=== PATIENT | female | born 1935 | race Caucasian/White ===

== ENCOUNTER 2016-11-16 11:53 | Inpatient (IN) | payer MEDICARE, BC ==
[2016-11-20 04:39] VITALS: RESP 20
[2016-11-22 07:32] VITALS: PULSE 94; TEMP 98; O2SAT 96
[2016-11-22 10:59] VITALS: BP 151/74
== END 2016-11-22 14:30 | DRG 378 ==
LOC: C.ER 11:53 → C.9E 12:59 → C.6T 14:05
PROVIDERS: ADMIT Internal Medicine; ATTEND Internal Medicine
PROC: 0DBN8ZX Excision of Sigmoid Colon, Via Natural or Artificial Opening Endoscopic, Diagnostic (ICD-10-PCS; principal; 2016-11-18)
DX: K92.2 Gastrointestinal hemorrhage, unspecified (principal); N39.0 Urinary tract infection, site not specified; K57.90 Diverticulosis of intestine, part unspecified, without perforation or abscess without bleeding; F03.90 Unspecified dementia, unspecified severity, without behavioral disturbance, psychotic disturbance, mood disturbance, and anxiety; F05 Delirium due to known physiological condition; I48.91 Unspecified atrial fibrillation; F32.9 Major depressive disorder, single episode, unspecified; I10 Essential (primary) hypertension; E78.5 Hyperlipidemia, unspecified; E78.00 Pure hypercholesterolemia, unspecified; M81.0 Age-related osteoporosis without current pathological fracture; Z79.01 Long term (current) use of anticoagulants; Z96.651 Presence of right artificial knee joint; Z85.3 Personal history of malignant neoplasm of breast; Z87.891 Personal history of nicotine dependence; K59.00 Constipation, unspecified; M19.90 Unspecified osteoarthritis, unspecified site; N93.9 Abnormal uterine and vaginal bleeding, unspecified; K63.5 Polyp of colon; K64.8 Other hemorrhoids; K52.9 Noninfective gastroenteritis and colitis, unspecified; Z91.81 History of falling; D64.9 Anemia, unspecified

== ENCOUNTER 2017-01-03 22:56 | Observation (INO) | payer MEDICARE ==
[2017-01-03 23:38] LABS: BASO # 0.1 K/uL (0.0-0.2); BASO % 0.8 % (0.0-2.0); EOS # 0.4 K/uL (0.0-0.7); EOS % 4.7 % (0.0-4.0); HEMATOCRIT 28.9 % (34.0-47.0); LYMPH # 1.8 K/uL (1.0-4.3); LYMPH % 21.6 % (20.0-40.0); MEAN CELL VOLUME 81.4 fL (81.0-99.0); MEAN CORPUSCULAR HEMOGLOBIN 26.3 pg (27.0-31.0); MEAN CORPUSCULAR HGB CONC 32.3 g/dL (33.0-37.0); MEAN PLATELET VOLUME 7.8 fL (7.2-11.7); MONO % 11.9 % (0.0-10.0); RED CELL DISTRIBUTION WIDTH 14.6 % (11.5-14.5); WHITE BLOOD COUNT 8.5 K/uL (4.8-10.8)
[2017-01-03 23:46] LABS: CHLORIDE 103 mmol/L (98-107)
[2017-01-03 23:47] LABS: POTASSIUM 4.6 mmol/L (3.6-5.2); SODIUM 140 mmol/L (132-148)
[2017-01-03 23:49] LABS: ALB/GLOB RATIO 1.2 (1.0-2.1); ALKALINE PHOSPHATASE 70 U/L (38-126); AST/SGOT 26 U/L (14-36); BILIRUBIN,TOTAL 1.1 mg/dL (0.2-1.3); CARBON DIOXIDE 27 mmol/L (22-30); GFR AFRICAN-AMERICAN > 60; TOTAL PROTEIN 6.5 g/dL (6.3-8.3)
[2017-01-03 23:50] LABS: ALT/SGPT 36 U/L (9-52); BLOOD UREA NITROGEN 22 mg/dL (7-17); CALCIUM 8.4 mg/dl (8.6-10.4); GLUCOSE,RANDOM 102 mg/dL (65-105)
--- NOTE | 2017-01-04 00:06 | C.PDOC ---
Time Seen by Provider: 01/03/17 23:16 Chief Complaint (Nursing): Abnormal Labs Past Medical History Vital Signs: Last Vital Signs Temp 98.7 F 01/03/17 23:10 Pulse 100 H 01/03/17 23:10 Resp 20 01/03/17 23:10 BP 138/84 01/03/17 23:10 Pulse Ox 96 01/04/17 00:05 - Medical History PMH: Arthritis, Atrial Fibrillation, Dementia, HTN, Hyperlipidemia Denies: Chronic Kidney Disease - [facility] Procedures EXCISION OF SIGMOID COLON, ENDO, DIAGN (11/16/16) Family History: States: Unknown Family Hx - Social History Hx Alcohol Use: No Hx Substance Use: No ED Course And Treatment - Laboratory Results Result Diagrams: 01/03/17 23:34 01/03/17 23:34 ECG Rhythm: Atrial Fibrillation ECG Interpretation: Normal Rate From EC O2 Sat by Pulse Oximetry: 96 Progress Note: rectal exam, soft light brown stool, OSB sent Reevaluation Time: 00:39 Reassessment Condition: Improved Disposition Doctor Will See Patient In The: Hospital Counseled Patient/Family Regarding: Studies Performed, Diagnosis - Disposition Disposition: HOSPITALIZED Disposition Time: 00:40 Condition: GOOD Forms: [facility] (Slovak) - Clinical Impression Clinical Impression: Anemia
[2017-01-04 03:54] LABS: RBC URINE 3 /hpf (0-3); URINE BILIRUBIN NEGATIVE (NEGATIVE); URINE BLOOD NEGATIVE (NEGATIVE); URINE COLOR Yellow (YELLOW); URINE GLUCOSE (UA) NORMAL (Normal); URINE KETONE NEGATIVE (NEGATIVE); URINE LEUKOCYTE ESTERASE 3+ Leu/uL (Negative); URINE PROTEIN NEGATIVE (NEGATIVE); WBC URINE 39 /hpf (0-5)
--- NOTE | 2017-01-04 09:11 | RAD ---
PROCEDURE: CHEST RADIOGRAPH, 1 VIEW HISTORY: Shortness of breath COMPARISON: None available. FINDINGS: LUNGS: Moderate to severe venous congestion with confluent airspace opacifications in the left mid to lower lung zone with associated small left pleural effusion. Elevated right hemidiaphragm. Right paratracheal airspace opacity. PLEURA: As above. CARDIOVASCULAR: Cardiomegaly. OSSEOUS STRUCTURES: Degenerative changes in the spine and shoulders. VISUALIZED UPPER ABDOMEN: Normal. OTHER FINDINGS: None. IMPRESSION: Moderate to severe venous congestion with confluent airspace opacifications in the left mid to lower lung zone with associated small left pleural effusion. Elevated right hemidiaphragm. Right paratracheal airspace opacity.
--- NOTE | 2017-01-04 09:39 | RAD ---
Chest x-ray two views History: Admission film. Comparison: 01/03/2017 Findings: Patchy increased markings at the left lung base which may represent mild infiltrate and or atelectasis. Right peritracheal airspace opacity which may represent prominent vasculature. Mild venous congestion. Mild right infrahilar consolidative changes. Tortuous ectatic aorta. Mild cardiomegaly. Degenerative changes in the spine and shoulders. Impression: Patchy increased markings at the left lung base which may represent mild infiltrate and or atelectasis. Right peritracheal airspace opacity which may represent prominent vasculature. Mild venous congestion. Mild right infrahilar consolidative changes. Tortuous ectatic aorta. Mild cardiomegaly.
[2017-01-04] MEDS: Sodium Chloride 0.45% 1,000 ML IV SCH (10:07)
--- NOTE | 2017-01-04 12:19 | CP.PCM.CON ---
History of Present Illness - History of Present Illness History of Present Illness: ASked to see pt for anemia and g pos stool Pt reprots feeling weak. Denies fever, RBleed PMH: OA, A fib, OMS, HTn, chol Had colonoscopy 12/02- diverticulolsis and 3 polyps not removed. Was on eliquis Review of Systems - Constitutional Constitutional: Fatigue, Weakness. absent: Fever, Weight Loss - EENT Eyes: absent: Diplopia Nose/Mouth/Throat: absent: Throat Swelling - Cardiovascular Cardiovascular: absent: Chest Pain, Palpitations - Respiratory Respiratory: absent: Hemoptysis, Wheezing - Gastrointestinal Gastrointestinal: absent: Abdominal Pain, Hematemesis, Hematochezia, Melena, Vomiting - Genitourinary Genitourinary: absent: Hematuria - Musculoskeletal Musculoskeletal: absent: Muscle Cramps - Integumentary Integumentary: absent: Jaundice - Neurological Neurological: absent: Convulsions Past Patient History - Past Medical History & Family History Past Medical History?: Yes - Past Social History Smoking Status: Current Some Days Smoker - CARDIAC Hx Atrial Fibrillation: Yes Hx Hypertension: Yes - PULMONARY Hx Respiratory Disorders: No - NEUROLOGICAL Hx Dementia: Yes - HEENT Hx HEENT Problems: Yes - RENAL Hx Chronic Kidney Disease: No - ENDOCRINE/METABOLIC Hx Endocrine Disorders: No - HEMATOLOGICAL/ONCOLOGICAL Hx Blood Disorders: No - INTEGUMENTARY Hx Dermatological Problems: No - MUSCULOSKELETAL/RHEUMATOLOGICAL Hx Arthritis: Yes - GASTROINTESTINAL Hx Gastrointestinal Disorders: Yes Other/Comment: GI blood - GENITOURINARY/GYNECOLOGICAL Hx Genitourinary Disorders: No - PSYCHIATRIC Hx Substance Use: No - SURGICAL HISTORY Hx Surgeries: Yes Hx Joint Replacement: Yes (right knee) - ANESTHESIA Hx Anesthesia: Yes Meds Allergies/Adverse Reactions: Allergies Allergy/AdvReac Type Severity Reaction Status Date / Time No Known Allergies Allergy Verified 11/16/16 12:09 - Medications Medications: Current Medications Ferric Sodium Gluconate Complex (Ferrlecit) 125 mg IVPB DAILY [facility] Stop: 01/06/17 12:16 Sodium Chloride (Sodium Chloride 0.45%) 1,000 mls @ 100 mls/hr IV .Q10H KARO Last Admin: 01/04/17 10:07 Dose: 100 mls/hr Metoprolol Tartrate (Lopressor) 25 mg PO BID [facility] Last Admin: 01/04/17 10:26 Dose: 25 mg Rosuvastatin Calcium (Crestor) 5 mg PO HS KARO Physical Exam - Constitutional Appears: Well - Respiratory Exam Respiratory Exam: Clear to Auscultation Bilateral - Cardiovascular Exam Cardiovascular Exam: RRR - GI/Abdominal Exam GI & Abdominal Exam: Normal Bowel Sounds, Soft. absent: Guarding, Mass, Tenderness - Extremities Exam Extremities exam: Positive for: pedal edema - Neurological Exam Neurological exam: Alert, Oriented x3 - Psychiatric Exam Psychiatric exam: Normal Affect Results - Vital Signs Recent Vital Signs: Last Vital Signs Temp 97.8 F 01/04/17 06:36 Pulse 99 H 01/04/17 06:36 Resp 18 01/04/17 06:36 BP 135/72 01/04/17 10:26 Pulse Ox 99 01/04/17 06:36 - Labs Result Diagrams: 01/03/17 23:34 01/03/17 23:34 Labs: Laboratory Results - last 24 hr 01/03/17 01/03/17 01/03/17 23:34 23:34 23:34 WBC 8.5 D RBC 3.55 L Hgb 9.3 L D Hct 28.9 L MCV 81.4 D MCH 26.3 L MCHC 32.3 L RDW 14.6 H Plt Count 250 MPV 7.8 Neut % (Auto) 61.0 Lymph % (Auto) 21.6 [place] % (Auto) 11.9 H Eos % (Auto) 4.7 H Baso % (Auto) 0.8 Neut # 5.2 Lymph # 1.8 [place] # 1.0 H Eos # 0.4 Baso # 0.1 PT 11.3 INR 1.0 APTT 21 Sodium 140 Potassium 4.6 Chloride 103 Carbon Dioxide 27 Anion Gap 14 BUN 22 H Creatinine 0.8 Est GFR ( Amer) > 60 Est GFR (Non-Af Amer) > 60 Random Glucose 102 Calcium 8.4 L Total Bilirubin 1.1 AST 26 ALT 36 Alkaline Phosphatase 70 Troponin I < 0.0120 NT-Pro-B Natriuret Pep 1310 H Total Protein 6.5 Albumin 3.5 Globulin 2.9 Albumin/Globulin Ratio 1.2 Urine Color Urine Clarity Urine pH Ur Specific [place] Urine Protein Urine Glucose (UA) Urine Ketones Urine Blood Urine Nitrate Urine Bilirubin Urine Urobilinogen Ur Leukocyte Esterase Urine WBC (Auto) Urine RBC (Auto) Ur Squamous Epith Cells Stool Occult Blood Blood Type Antibody Screen 01/03/17 01/04/17 01/04/17 23:34 01:18 02:47 WBC RBC Hgb Hct MCV MCH MCHC RDW Plt Count MPV Neut % (Auto) Lymph % (Auto) [place] % (Auto) Eos % (Auto) Baso % (Auto) Neut # Lymph # [place] # Eos # Baso # PT INR APTT Sodium Potassium Chloride Carbon Dioxide Anion Gap BUN Creatinine Est GFR ( Amer) Est GFR (Non-Af Amer) Random Glucose Calcium Total Bilirubin AST ALT Alkaline Phosphatase Troponin I NT-Pro-B Natriuret Pep Total Protein Albumin Globulin Albumin/Globulin Ratio Urine Color Yellow Urine Clarity Hazy Urine pH 5.0 Ur Specific [place] 1.021 Urine Protein Negative Urine Glucose (UA) Normal Urine Ketones Negative Urine Blood Negative Urine Nitrate Negative Urine Bilirubin Negative Urine Urobilinogen 2.0 H Ur Leukocyte Esterase 3+ H Urine WBC (Auto) 39 H Urine RBC (Auto) 3 Ur Squamous Epith Cells 5 Stool Occult Blood Positive H Blood Type AB POSITIVE Antibody Screen Negative Assessment & Plan (1) Atrial fibrillation Status: Acute (2) HTN (hypertension) Status: Acute (3) Anemia Assessment and Plan: g pos stool. Had colonsocopy 1 month a go Status: Acute (4) Colon polyps Assessment and Plan: No removed- was on eliquis- consider colonosocpy in future for polypectomy Status: Acute (5) Diverticulosis Status: Acute (6) Gastrointestinal hemorrhage Assessment and Plan: EGD tuesday Status: Acute
[2017-01-04] MEDS: Ferric Sodium Gluconat Complex 62.5 mg/5 ml Vial IVPB SCH (15:24)
[2017-01-04 15:39] LABS: INR 1.1
[2017-01-04] MEDS ORDERED: Peg-Electrolyte Oral Soln 4L (Golytely) PO ONE (16:00)
[2017-01-04] MEDS ORDERED: Bisacodyl 5mg EC Tab PO ONE (19:00)
--- NOTE | 2017-01-04 21:46 | CP.PCM.HP ---
History of Present Illness - History of Present Illness History of Present Illness: Chief complaint: Low hemoglobin. History present illness: 81-year-old female with history of hypertension osteoporosis hypercholesteremia atrial fibrillation was on anticoagulation, and dementia. Patient was recently hospitalized with the Gi bleed in the past, underwent colonoscopy. But at the time patient hemodynamically was stable. Patient went to assisted living, I was called last week, at the time patient was having at least frequent episodes of rectal bleeding. I spoke to the patient's daughter at the time. After repeating the blood count in the atrium, because of the low hemoglobin 8.9 , I advised the family that she will needed hospitalization. And patient was brought to the emergency room. According to the patient she is not having any information about the bleeding. She does not see any bleeding. She is feeling better. She does not have any acute symptoms. But patient is having significant advanced dementia, much history is not available from her Past medical history: Hypertension, dementia, atrial fibrillation Allergy: No known drug allergy Personal history used to be a smoker in the past. Currently living in assisted facility Review of system noted from the chart On examination: Vital signs reviewed Chest bilateral good air entry regular heart sound nontender abdomen no pedal edema Stool guaiac is positive Repeat hemoglobin is 9.0 Assessment and recommendation: 80-year-old female with history of hypertension and hypercholesteremia osteoporosis atrial fibrillation currently off anticoagulation because of recurrent fall, and high risk of fall. Also suspected Gi bleed. I spoke to the patient's family. I also spoke to the resume writer, possible colonoscopy in the morning. Repeat hemoglobin in the a.m. We'll start the patient on IV iron infusion. And will follow the patient. Patient is at high risk for DVT. Also at high risk for stroke because of the atrial fibrillation. And unable to anticoagulate Family understand the risk. Present on Admission - Present on Admission Any Indicators Present on Admission: No History of DVT/PE: No History of Uncontrolled Diabetes: No Urinary Catheter: No Decubitus Ulcer Present: No Past Patient History - Past Medical History & Family History Past Medical History?: Yes - Past Social History Smoking Status: Never Smoked - CARDIAC Hx Atrial Fibrillation: Yes Hx Hypertension: Yes - PULMONARY Hx Respiratory Disorders: No - NEUROLOGICAL Hx Dementia: Yes - HEENT Hx HEENT Problems: Yes - RENAL Hx Chronic Kidney Disease: No - ENDOCRINE/METABOLIC Hx Endocrine Disorders: No - HEMATOLOGICAL/ONCOLOGICAL Hx Blood Disorders: No - INTEGUMENTARY Hx Dermatological Problems: No - MUSCULOSKELETAL/RHEUMATOLOGICAL Hx Arthritis: Yes - GASTROINTESTINAL Hx Gastrointestinal Disorders: Yes Other/Comment: GI blood - GENITOURINARY/GYNECOLOGICAL Hx Genitourinary Disorders: No - PSYCHIATRIC Hx Substance Use: No - SURGICAL HISTORY Hx Surgeries: Yes Hx Joint Replacement: Yes (right knee) - ANESTHESIA Hx Anesthesia: Yes Meds Allergies/Adverse Reactions: Allergies Allergy/AdvReac Type Severity Reaction Status Date / Time No Known Allergies Allergy Verified 01/04/17 17:39 Results - Vital Signs Recent Vital Signs: Last Vital Signs Temp 97.8 F 01/04/17 13:00 Pulse 81 01/04/17 21:29 Resp 24 01/04/17 21:29 BP 137/90 01/04/17 21:29 Pulse Ox 94 L 01/04/17 21:29 - Labs Result Diagrams: 01/03/17 23:34 01/03/17 23:34 Labs: Laboratory Results - last 24 hr 01/03/17 01/03/17 01/03/17 23:34 23:34 23:34 WBC 8.5 D RBC 3.55 L Hgb 9.3 L D Hct 28.9 L MCV 81.4 D MCH 26.3 L MCHC 32.3 L RDW 14.6 H Plt Count 250 MPV 7.8 Neut % (Auto) 61.0 Lymph % (Auto) 21.6 [place] % (Auto) 11.9 H Eos % (Auto) 4.7 H Baso % (Auto) 0.8 Neut # 5.2 Lymph # 1.8 [place] # 1.0 H Eos # 0.4 Baso # 0.1 PT 11.3 INR 1.0 APTT 21 Sodium 140 Potassium 4.6 Chloride 103 Carbon Dioxide 27 Anion Gap 14 BUN 22 H Creatinine 0.8 Est GFR ( Amer) > 60 Est GFR (Non-Af Amer) > 60 Random Glucose 102 Calcium 8.4 L Total Bilirubin 1.1 AST 26 ALT 36 Alkaline Phosphatase 70 Troponin I < 0.0120 NT-Pro-B Natriuret Pep 1310 H Total Protein 6.5 Albumin 3.5 Globulin 2.9 Albumin/Globulin Ratio 1.2 Urine Color Urine Clarity Urine pH Ur Specific [place] Urine Protein Urine Glucose (UA) Urine Ketones Urine Blood Urine Nitrate Urine Bilirubin Urine Urobilinogen Ur Leukocyte Esterase Urine WBC (Auto) Urine RBC (Auto) Ur Squamous Epith Cells Stool Occult Blood Blood Type Antibody Screen 01/03/17 01/04/17 01/04/17 23:34 01:18 02:47 WBC RBC Hgb Hct MCV MCH MCHC RDW Plt Count MPV Neut % (Auto) Lymph % (Auto) [place] % (Auto) Eos % (Auto) Baso % (Auto) Neut # Lymph # [place] # Eos # Baso # PT INR APTT Sodium Potassium Chloride Carbon Dioxide Anion Gap BUN Creatinine Est GFR ( Amer) Est GFR (Non-Af Amer) Random Glucose Calcium Total Bilirubin AST ALT Alkaline Phosphatase Troponin I NT-Pro-B Natriuret Pep Total Protein Albumin Globulin Albumin/Globulin Ratio Urine Color Yellow Urine Clarity Hazy Urine pH 5.0 Ur Specific [place] 1.021 Urine Protein Negative Urine Glucose (UA) Normal Urine Ketones Negative Urine Blood Negative Urine Nitrate Negative Urine Bilirubin Negative Urine Urobilinogen 2.0 H Ur Leukocyte Esterase 3+ H Urine WBC (Auto) 39 H Urine RBC (Auto) 3 Ur Squamous Epith Cells 5 Stool Occult Blood Positive H Blood Type AB POSITIVE Antibody Screen Negative 01/04/17 15:29 WBC RBC Hgb Hct MCV MCH MCHC RDW Plt Count MPV Neut % (Auto) Lymph % (Auto) [place] % (Auto) Eos % (Auto) Baso % (Auto) Neut # Lymph # [place] # Eos # Baso # PT 12.8 H INR 1.1 APTT Sodium Potassium Chloride Carbon Dioxide Anion Gap BUN Creatinine Est GFR ( Amer) Est GFR (Non-Af Amer) Random Glucose Calcium Total Bilirubin AST ALT Alkaline Phosphatase Troponin I NT-Pro-B Natriuret Pep Total Protein Albumin Globulin Albumin/Globulin Ratio Urine Color Urine Clarity Urine pH Ur Specific [place] Urine Protein Urine Glucose (UA) Urine Ketones Urine Blood Urine Nitrate Urine Bilirubin Urine Urobilinogen Ur Leukocyte Esterase Urine WBC (Auto) Urine RBC (Auto) Ur Squamous Epith Cells Stool Occult Blood Blood Type Antibody Screen
[2017-01-05] MEDS: Sodium Chloride 0.45% 1,000 ML IV SCH ×2 (00:11→06:59)
[2017-01-05 07:35] LABS: HEMATOCRIT 26.3 % (34.0-47.0); MEAN CELL VOLUME 80.7 fL (81.0-99.0); MEAN CORPUSCULAR HEMOGLOBIN 26.1 pg (27.0-31.0); MEAN CORPUSCULAR HGB CONC 32.4 g/dL (33.0-37.0); MEAN PLATELET VOLUME 7.6 fL (7.2-11.7); WHITE BLOOD COUNT 6.5 K/uL (4.8-10.8)
[2017-01-05 07:52] LABS: CHLORIDE 106 mmol/L (98-107); SODIUM 142 mmol/L (132-148)
[2017-01-05 07:53] LABS: POTASSIUM 3.7 mmol/L (3.6-5.2)
[2017-01-05 07:55] LABS: ALB/GLOB RATIO 1.1 (1.0-2.1); ALKALINE PHOSPHATASE 69 U/L (38-126); ALT/SGPT 35 U/L (9-52); AST/SGOT 19 U/L (14-36); BLOOD UREA NITROGEN 13 mg/dL (7-17); CARBON DIOXIDE 27 mmol/L (22-30); GFR AFRICAN-AMERICAN > 60; GLUCOSE,RANDOM 89 mg/dL (65-105); TOTAL PROTEIN 5.7 g/dL (6.3-8.3)
[2017-01-05 07:56] LABS: CALCIUM 7.9 mg/dl (8.6-10.4)
[2017-01-05] MEDS ORDERED: Lactated Ringer's 1,000 ML IV ONE (09:55)
[2017-01-05] MEDS ORDERED: Propofol 10 mg/ml Inj (20 ML) ONE (10:02)
[2017-01-05] MEDS ORDERED: Lidocaine Hydrochloride 5 ML INJ ONE (10:23)
[2017-01-05] MEDS ORDERED: ePHEDrine 50 mg/ml Inj ONE (10:24)
--- NOTE | 2017-01-05 11:12 | CP.PCM.PN ---
Subjective - Date & Time of Evaluation Date of Evaluation: 01/05/17 Time of Evaluation: 11:08 - Subjective Subjective: Colonoscopy with polypectomy performed- see report. Stable for discharge. Will sign off We are away until Jan 08- if we are needed please contact Dr Loo. Objective - Vital Signs/Intake and Output Vital Signs (last 24 hours): Temp Pulse Resp BP Pulse Ox 97.5 F L 92 H 14 107/52 L 100 01/05/17 10:54 01/05/17 10:54 01/05/17 10:54 01/05/17 10:54 01/05/17 10:54 - Medications Medications: Current Medications Ferric Sodium Gluconate Complex (Ferrlecit) 125 mg IVPB DAILY K[facility]O Stop: 01/06/17 13:31 Last Admin: 01/04/17 15:24 Dose: 125 mg Sodium Chloride (Sodium Chloride 0.45%) 1,000 mls @ 100 mls/hr IV .Q10H KARO Last Admin: 01/05/17 06:59 Dose: Not Given Metoprolol Tartrate (Lopressor) 25 mg PO BID [facility]O Last Admin: 01/04/17 18:42 Dose: 25 mg Rosuvastatin Calcium (Crestor) 5 mg PO HS KARO Last Admin: 01/04/17 20:31 Dose: 5 mg - Labs Labs: 01/05/17 07:12 01/05/17 07:12 PT 12.8 SECONDS (9.7-12.2) H 01/04/17 15:29 INR 1.1 01/04/17 15:29 APTT 21 SECONDS (21-34) 01/03/17 23:34
[2017-01-05] MEDS: Ferric Sodium Gluconat Complex 62.5 mg/5 ml Vial IVPB SCH (13:02)
[2017-01-05 14:14] LABS: HEMATOCRIT 26.7 % (34.0-47.0); MEAN CELL VOLUME 81.2 fL (81.0-99.0); MEAN CORPUSCULAR HEMOGLOBIN 25.9 pg (27.0-31.0); MEAN CORPUSCULAR HGB CONC 31.8 g/dL (33.0-37.0); MEAN PLATELET VOLUME 7.4 fL (7.2-11.7); WHITE BLOOD COUNT 5.9 K/uL (4.8-10.8)
--- NOTE | 2017-01-05 14:34 | CP.PCM.PN ---
Subjective - Date & Time of Evaluation Date of Evaluation: 01/05/17 Time of Evaluation: 14:34 - Subjective Subjective: PT UNDERWENT COLONOSCOPY TODAY AND TOLERATED PROCEDURE WELL. TOLERATED PO LUNCH TRAY UPON ARRIVAL TO FLOOR. CLEARED FOR D/C TODAY BY GI WITH OP F/U. DR. HAQ ALSO CLEARED PT FOR D/C. PT TO BE D/C WITH RX FOR PO Fe AND COLACE. ALL F/U AND D/C INFORMATION DISCUSSED WITH PT. ARRANGEMENTS TO RETURN TO [facility] MADE BY CM AND SW. NO FURTHER ORDERS. Objective - Vital Signs/Intake and Output Vital Signs (last 24 hours): Temp Pulse Resp BP Pulse Ox 97.4 F L 93 H 22 125/73 100 01/05/17 11:32 01/05/17 12:58 01/05/17 11:32 01/05/17 11:34 01/05/17 12:58 - Medications Medications: Current Medications Ferric Sodium Gluconate Complex (Ferrlecit) 125 mg IVPB DAILY [facility] Stop: 01/06/17 13:31 Last Admin: 01/05/17 13:02 Dose: 125 mg Sodium Chloride (Sodium Chloride 0.45%) 1,000 mls @ 100 mls/hr IV .Q10H KARO Last Admin: 01/05/17 06:59 Dose: Not Given Metoprolol Tartrate (Lopressor) 25 mg PO BID [facility] Last Admin: 01/05/17 11:34 Dose: Not Given Rosuvastatin Calcium (Crestor) 5 mg PO HS KARO Last Admin: 01/04/17 20:31 Dose: 5 mg - Labs Labs: 01/05/17 14:01 01/05/17 07:12 PT 12.8 SECONDS (9.7-12.2) H 01/04/17 15:29 INR 1.1 01/04/17 15:29 APTT 28 SECONDS (21-34) D 01/05/17 14:01
[2017-01-05 15:37] VITALS: BP 128/83; PULSE 94; RESP 20; TEMP 97.6; O2SAT 95
== END 2017-01-05 18:35 ==
LOC: C.ER 22:56 → C.9E 01-04 00:26 → C.5S 01-04 20:42
PROVIDERS: ADMIT Internal Medicine; ATTEND Internal Medicine
DX: Z12.11 Encounter for screening for malignant neoplasm of colon (principal); Z86.010 Personal history of colon polyps; D12.2 Benign neoplasm of ascending colon; D12.4 Benign neoplasm of descending colon; D12.3 Benign neoplasm of transverse colon; K62.1 Rectal polyp; K57.90 Diverticulosis of intestine, part unspecified, without perforation or abscess without bleeding; D64.9 Anemia, unspecified; I10 Essential (primary) hypertension; I48.91 Unspecified atrial fibrillation; F03.90 Unspecified dementia, unspecified severity, without behavioral disturbance, psychotic disturbance, mood disturbance, and anxiety; E78.00 Pure hypercholesterolemia, unspecified; M81.0 Age-related osteoporosis without current pathological fracture
CPT/HCPCS: 36415; 45380; 71010; 71020; 80053; 81001; 83880; 84484; 85025; 85027; 85610; 85730; 86850; 86900; 88305; 96365; 96366; 97162; 99285; G0328; G0378; G8978; G8979; J2704; J2916; J7030; J7120

== ENCOUNTER 2017-02-03 06:50 | Day surgery (SDC) | payer MEDICARE ==
[2017-02-03 07:47] VITALS: BMI 41.8
--- NOTE | 2017-02-03 08:59 | CP.SDSHP ---
Same Day Surgery H & P - History Proposed Procedure: colonoscopy Pre-Op Diagnosis: rectal bleed - Previous Medical/Surgical History Cardiac: Hypertension, Arrhythmia - Allergies Allergies: Allergies No Known Allergies Allergy (Verified 02/03/17 07:46) per CT REPORT VIA PHONE/ RECORDS SENT - Physical Exam General Appearance: awake ,a lert, Ox 2 Vital Signs: Vital Signs 02/03/17 07:59 Temperature 97.3 F L Pulse Rate 80 Respiratory 20 Rate Blood Pressure 139/98 H O2 Sat by Pulse 97 Oximetry Neuro: WNL Heart: WNL Lungs: WNL GI: WNL - {Optional Preform as Required} Abdomen: WNL - Impression Impression: rectal bleed Pt. Evaluated Today:Candidate for Anesthesia & Procedure: Yes - Date & Time Date: 02/03/17 Time: 08:58 Short Stay Discharge - Short Stay Discharge Admitting Diagnosis/Reason for Visit: RECTAL BLEED Disposition: HOME/ ROUTINE
[2017-02-03] MEDS ORDERED: Propofol 10 mg/ml Inj (20 ML) ONE (09:02)
[2017-02-03 09:47] VITALS: RESP 18; TEMP 97.7
[2017-02-03 11:37] VITALS: BP 152/87; PULSE 86; O2SAT 99
== END 2017-02-03 11:07 | disposition home or self-care (01) ==
LOC: C.ENDO 06:50
PROVIDERS: ATTEND Internal Medicine Gastroenterology
DX: K62.1 Rectal polyp (principal); K64.8 Other hemorrhoids; K57.90 Diverticulosis of intestine, part unspecified, without perforation or abscess without bleeding
CPT/HCPCS: 45388; 88305; J2704

== ENCOUNTER 2017-04-18 15:20 | Inpatient (IN) | payer MEDICARE, BC ==
[2017-04-18 15:21] VITALS: BMI 41.8
--- NOTE | 2017-04-18 16:10 | C.PDOC ---
History Of Present Illness 81 y/o F NHR DNR/DNI c PMHx HTN, osteoporosis, HLD, Afib on anticoagulation, and dementia p/w change in vision noticed by [facility] staff this morning. Patient was noticed by staff to be holding arms up as if to feel her way around the room. She was not making eye contact and unable to say how many fingers were being held up in front of her. When asked why patient is in ED, she states she has a headache. She denies any vision changes. She denies numbness, weakness, shortness of breath, chest pain, fever. Time Seen by Provider: 04/18/17 15:34 Chief Complaint (Nursing): Weakness/Neurological Deficit Past Medical History Vital Signs: Last Vital Signs Temp 97.7 F 04/18/17 15:39 Pulse 114 H 04/18/17 15:39 Resp 20 04/18/17 15:39 BP 167/132 H 04/18/17 15:39 Pulse Ox 96 04/18/17 16:49 - Medical History PMH: Anemia, Arthritis, Atrial Fibrillation, Cardia Arrhythmia (A FIB), Colonic Polyps, Dementia, HTN, Hypercholesterolemia, Hyperlipidemia, Osteoporosis Denies: Fractures, Chronic Kidney Disease Surgical History: Endoscopy - [facility] Procedures EXCISION OF SIGMOID COLON, ENDO, DIAGN (11/16/16) Family History: States: Unknown Family Hx - Social History Hx Alcohol Use: No Hx Substance Use: No - Immunization History Hx Tetanus Toxoid Vaccination: No Hx Influenza Vaccination: Yes Hx Pneumococcal Vaccination: No Review Of Systems Except As Marked, All Systems Reviewed And Found Negative. Constitutional: Negative for: Fever Cardiovascular: Negative for: Chest Pain Physical Exam - Physical Exam Additional Physical Exam Comments: Constitutional: No acute distress. Head: Normocephalic. Atraumatic. Eyes: PERRL. EOMI. ENT: Moist mucous membranes. Neck: Supple. No midline tenderness. Cardiovascular: Tachycardic. Radial pulse 2+ bilaterally. Chest: No tenderness. Respiratory: Clear to auscultation bilaterally. GI: Soft. Nontender. Nondistended. Back: No CVA tenderness. Musculoskeletal: No tenderness to extremities. FROM x 4. Skin: No rash. Neurologic: Awake and alert. Oriented x 2 (name, [facility], ). L eye lateral visual field deficit and R eye medial upper visual field deficit. No facial droop. Moves arms equally and legs equally. Subjective sensation to light touch intact bilaterally. With eyes closed, can not report sensation to bilateral legs. ED Course And Treatment - Laboratory Results Result Diagrams: 04/18/17 16:24 04/18/17 16:24 O2 Sat by Pulse Oximetry: 96 NIHSS Stroke Scale - Date/Time Evaluation Performed Date Performed: 04/18/17 Time Performed: 16:14 - How Severe is the Stroke Level of Consciousness: 0=Alert LOC to Questions: 0=Both comments correct LOC to commands: 0=Obeys both correctly Best Gaze: 1=Partial gaze palsy Visual: 2=Complete hemianopia Facial: 0=Normal Motor Arm - Left: 0=No drift (fist becomes clenched but no drop) Motor Arm - Right: 0=No drift Motor Leg - Left: 2=Falls before 5 sec (able to lift but unable to hold) Motor Leg - Right: 2=Falls before 5 sec (able to lift but unable to hold) Limb Ataxia: 0=Absent Sensory: 0=Normal Best Language: 0=No aphasia Dysarthia: 0=Normal articulation Extinction & Inattention (Neglect): 1=Partial neglect (mild franc[place]-attention) Score: 8 rTPA Inclusion/Exclusion - Refusal of Treatment Patient Refused Treatment: No - Inclusion Criteria for Altepase Patient is 18 years or Older: Yes The Clinical Diagnosis of Ischemic Stroke That is Causing a Potentially Disabling Neurological Deficit: Yes Time of Onset is Well Established to be Less Than 270 Minute Before Treatment Would Begin: No Risk/Benefit Discussed With Patient/Family Member Present: Yes Medical Decision Making Medical Decision Making: Patient with neurological deficits. Last time well can not be well ascertained, but is over 6 hours ago at a minimum. CODE STROKE not activated. Will send patient for CT Head. EKG Afib, rate 100 bpm, no ST elevations FINDINGS: HEMORRHAGE: No intracranial hemorrhage. BRAIN: There is hypodensity noted at the right occipital lobe suspicious for acute/ subacute infarction in the right posterior cerebral artery territory. Mild to moderate atrophy and moderate to extensive white matter changes suggestive but nonspecific for chronic microvascular ischemic disease. There is encephalomalacia at the right frontal lobe likely represent old infarction. There is a small encephalomalacia at the left caudate head consistent with chronic lacunar infarction. VENTRICLES: Unremarkable. No hydrocephalus. CALVARIUM: Unremarkable. PARANASAL SINUSES: Unremarkable as visualized. No significant inflammatory changes. MASTOID AIR CELLS: Unremarkable as visualized. No inflammatory changes. OTHER FINDINGS: None. IMPRESSION: Diffuse hypodensity at the right occipital lobe suspicious for acute or subacute infarction. 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 Atrophy and white matter changes suggestive but nonspecific for chronic microvascular ischemic disease. Aspirin administered. Dr. Mccauley accepts patient to his service on telemetry. Disposition Discussed With : Jamilah Mccauley Doctor Will See Patient In The: Hospital - Disposition Disposition: HOSPITALIZED Disposition Time: 17:03 Condition: GUARDED Forms: [facility] (Arabic) - Clinical Impression Clinical Impression: CVA (cerebral vascular accident), Hemianopsia
[2017-04-18 16:29] LABS: BASO # 0.3 K/uL (0.0-0.2); BASO % 3.8 % (0.0-2.0); EOS # 0.1 K/uL (0.0-0.7); EOS % 1.1 % (0.0-4.0); LYMPH # 1.5 K/uL (1.0-4.3); LYMPH % 19.2 % (20.0-40.0); MEAN CORPUSCULAR HEMOGLOBIN 24.9 pg (27.0-31.0); MEAN CORPUSCULAR HGB CONC 32.1 g/dL (33.0-37.0); MEAN PLATELET VOLUME 8.7 fL (7.2-11.7); MONO # 0.6 K/uL (0.0-0.8); MONO % 7.1 % (0.0-10.0); NEUT # 5.5 K/uL (1.8-7.0); NEUT % 68.8 % (50.0-75.0); PLATELET COUNT 225 K/uL (130-400); RBC 5.86 Mil/uL (3.80-5.20); RED CELL DISTRIBUTION WIDTH 21.6 % (11.5-14.5)
[2017-04-18 16:31] LABS: HEMOGLOBIN 14.6 g/dL (11.0-16.0); MEAN CELL VOLUME 77.5 fL (81.0-99.0)
[2017-04-18 16:34] LABS: INR 1.1; PROTHROMBIN TIME 12.3 SECONDS (9.7-12.2)
[2017-04-18 16:41] LABS: ALB/GLOB RATIO 1.1 (1.0-2.1); ALBUMIN 3.9 g/dL (3.5-5.0); ALT/SGPT 21 U/L (9-52); AST/SGOT 18 U/L (14-36); BLOOD UREA NITROGEN 15 mg/dL (7-17); CALCIUM 8.8 mg/dl (8.6-10.4); GFR AFRICAN-AMERICAN > 60; GFR NON-AFRICAN AMERICAN > 60; HDL CHOLESTEROL 39 mg/dL (30-70)
--- NOTE | 2017-04-18 16:47 | CT ---
PROCEDURE: CT HEAD WITHOUT CONTRAST. HISTORY: vision change, L eye hemianopia COMPARISON: None available. TECHNIQUE: Axial computed tomography images were obtained through the head/brain without intravenous contrast. Radiation dose: Total exam DLP = 857.67 mGy-cm. This CT exam was performed using one or more of the following dose reduction techniques: Automated exposure control, adjustment of the mA and/or kV according to patient size, and/or use of iterative reconstruction technique. FINDINGS: HEMORRHAGE: No intracranial hemorrhage. BRAIN: There is hypodensity noted at the right occipital lobe suspicious for acute/subacute infarction in the right posterior cerebral artery territory. Mild to moderate atrophy and moderate to extensive white matter changes suggestive but nonspecific for chronic microvascular ischemic disease. There is encephalomalacia at the right frontal lobe likely represent old infarction. There is a small encephalomalacia at the left caudate head consistent with chronic lacunar infarction. VENTRICLES: Unremarkable. No hydrocephalus. CALVARIUM: Unremarkable. PARANASAL SINUSES: Unremarkable as visualized. No significant inflammatory changes. MASTOID AIR CELLS: Unremarkable as visualized. No inflammatory changes. OTHER FINDINGS: None. IMPRESSION: Diffuse hypodensity at the right occipital lobe suspicious for acute or subacute infarction. 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 Atrophy and white matter changes suggestive but nonspecific for chronic microvascular ischemic disease.
[2017-04-18 16:52] LABS: LDL CHOLESTEROL 98 mg/dL (0-129)
[2017-04-18 17:29] LABS: BANDS 2 % (0-2); EOSINOPHIL 3 % (0-4); MONOCYTE 10 % (0-10); TOTAL CELLS COUNTED 100
[2017-04-18 17:31] LABS: BASOPHIL 1 % (0-2); LYMPHOCYTE 16 % (20-40); MICROCYTOSIS SLIGHT; NEUTROPHIL 68 % (50-75); OVALOCYTES SLIGHT; PLATELET ESTIMATE NORMAL (NORMAL)
--- NOTE | 2017-04-18 17:33 | RAD ---
HISTORY: vision changes COMPARISON: Comparison is made with 01/04/2027 T FINDINGS: LUNGS: Mild pulmonary vascular congestion noted. Otherwise no interval change in the lungs. [id number] elevation of the right hemidiaphragm is again noted. PLEURA: No significant pleural effusion identified, no pneumothorax apparent. CARDIOVASCULAR: Normal. OSSEOUS STRUCTURES: No significant abnormalities. VISUALIZED UPPER ABDOMEN: Normal. OTHER FINDINGS: None. IMPRESSION: Mild pulmonary vascular congestion . Otherwise no interval change.
[2017-04-18 17:41] LABS: SQUAMOUS EPITHIAL 13 /hpf (0-5); URINE BACTERIA RARE (<OCC); URINE BILIRUBIN NEGATIVE (NEGATIVE); URINE BLOOD NEGATIVE (NEGATIVE); URINE CLARITY Hazy (Clear); URINE GLUCOSE (UA) NORMAL (Normal); URINE LEUKOCYTE ESTERASE 1+ Leu/uL (Negative); URINE PROTEIN 1+ mg/dL (NEGATIVE)
[2017-04-18 17:43] LABS: URINE COLOR YELLOW (YELLOW)
--- NOTE | 2017-04-18 18:07 | CP.PCM.HP ---
History of Present Illness - History of Present Illness History of Present Illness: Chief complaint: Changing in the vision History of present illness: 81-year-old female with a history of hypertension, osteoporosis, hyperlipidemia , atrial fibrillation, dementia. Patient also in the past hospitalized with anemia, and a suspected GI bleed. Patient had frequent falls in the past. During the last admission it was decided because of the high risk for bleeding including a recurrent fall, and GI bleed it was decided to hold on oral anticoagulation, but was on only aspirin. The patient was doing well, but on the day of admission suddenly she started noticing some difficulty in seeing things, but he was also acting unusual, according to the staff at [facility] noticed that she was not doing well, and he recommended to the hospital. In the hospital emergency room initial "stroke was called because of the sudden onset of visual changes, and a weakness. Patient was initially hospitalized, there was no intracranial bleeding was identified. Patient was moving all 4 extremities. Changes in the facial droop noted on and off. There is noticeable deficit was noted. No Past medical history: Hypertension, dementia, atrial fibrillation Allergy: No known drug allergy Personal history used to be a smoker in the past. Currently living in assisted facility Review of system noted from the chart On examination: Vital signs reviewed Chest bilateral good air entry regular heart sound nontender abdomen no pedal edema patient is sitting up, awake and responding.But she was having some difficulty in looking on the right side of the visual field. patient is moving all 4 extremities. Labs reviewed CAT scan of the head showing some changes in the occipital area. Likely an ischemic event we will monitor. Assessment and recommendation: 80-year-old female with history of hypertension and hypercholesteremia osteoporosis atrial fibrillation currently off anticoagulation because of recurrent fall, and high risk of fall. now admitted with possible acute CVA embolic in origin. Involving the occipital lobe. Spoke to the patient daughter, explained about the causes. Neurological evaluation. Physical therapy. dVT and GI prophylaxis will follow the patient. Present on Admission - Present on Admission Any Indicators Present on Admission: No History of DVT/PE: No History of Uncontrolled Diabetes: No Urinary Catheter: No Decubitus Ulcer Present: No Past Patient History - Past Medical History & Family History Past Medical History?: Yes - Past Social History Smoking Status: Former Smoker - CARDIAC Hx Atrial Fibrillation: Yes Hx Cardia Arrhythmia: Yes (A FIB) Hx Hypercholesterolemia: Yes Hx Hypertension: Yes - PULMONARY Hx Respiratory Disorders: No - NEUROLOGICAL Hx Dementia: Yes - HEENT Hx HEENT Problems: Yes - RENAL Hx Chronic Kidney Disease: No - ENDOCRINE/METABOLIC Hx Endocrine Disorders: No - HEMATOLOGICAL/ONCOLOGICAL Hx Anemia: Yes - INTEGUMENTARY Hx Dermatological Problems: No - MUSCULOSKELETAL/RHEUMATOLOGICAL Hx Arthritis: Yes Hx Fractures: No Hx Osteoporosis: Yes - GASTROINTESTINAL Hx Gastrointestinal Disorders: Yes Other/Comment: GI blood - GENITOURINARY/GYNECOLOGICAL Hx Genitourinary Disorders: No - PSYCHIATRIC Hx Substance Use: No - SURGICAL HISTORY Hx Surgeries: Yes Hx Joint Replacement: Yes (right knee) - ANESTHESIA Hx Anesthesia: Yes Hx Anesthesia Reactions: (UNKNOWN ) Meds Allergies/Adverse Reactions: Allergies Allergy/AdvReac Type Severity Reaction Status Date / Time No Known Allergies Allergy Verified 04/22/17 19:41 Results - Vital Signs Recent Vital Signs: Last Vital Signs Temp 97.7 F 04/18/17 15:39 Pulse 114 H 04/18/17 15:39 Resp 20 04/18/17 15:39 BP 167/132 H 04/18/17 15:39 Pulse Ox 96 04/18/17 17:03 - Labs Result Diagrams: 04/22/17 08:11 04/22/17 08:11 Labs: Laboratory Results - last 24 hr 04/18/17 04/18/17 04/18/17 15:58 16:24 16:24 WBC 8.0 RBC 5.86 H Hgb 14.6 D Hct 45.4 MCV 77.5 L D MCH 24.9 L MCHC 32.1 L RDW 21.6 H Plt Count 225 MPV 8.7 Neut % (Auto) 68.8 Lymph % (Auto) 19.2 L [place] % (Auto) 7.1 Eos % (Auto) 1.1 Baso % (Auto) 3.8 H Neut # 5.5 Lymph # 1.5 [place] # 0.6 Eos # 0.1 Baso # 0.3 H Neutrophils % (Manual) 68 Band Neutrophils % 2 Lymphocytes % (Manual) 16 L Monocytes % (Manual) 10 Eosinophils % (Manual) 3 Basophils % (Manual) 1 Platelet Estimate Normal Microcytosis (manual) Slight Ovalocytes Slight PT 12.3 H INR 1.1 APTT 25 Sodium Potassium Chloride Carbon Dioxide Anion Gap BUN Creatinine Est GFR ( Amer) Est GFR (Non-Af Amer) Random Glucose Calcium Total Bilirubin AST ALT Alkaline Phosphatase Troponin I Total Protein Albumin Globulin Albumin/Globulin Ratio Triglycerides Cholesterol LDL Cholesterol Direct HDL Cholesterol Urine Color Yellow Urine Clarity Hazy Urine pH 5.0 Ur Specific [place] 1.021 Urine Protein 1+ H Urine Glucose (UA) Normal Urine Ketones Trace Urine Blood Negative Urine Nitrate Negative Urine Bilirubin Negative Urine Urobilinogen 2.0 H Ur Leukocyte Esterase 1+ H Urine WBC (Auto) 23 H Urine RBC (Auto) 2 Ur Squamous Epith Cells 13 H Urine Bacteria Rare Hyaline Casts 6-10 H Blood Type Antibody Screen 04/18/17 04/18/17 16:24 16:24 WBC RBC Hgb Hct MCV MCH MCHC RDW Plt Count MPV Neut % (Auto) Lymph % (Auto) [place] % (Auto) Eos % (Auto) Baso % (Auto) Neut # Lymph # [place] # Eos # Baso # Neutrophils % (Manual) Band Neutrophils % Lymphocytes % (Manual) Monocytes % (Manual) Eosinophils % (Manual) Basophils % (Manual) Platelet Estimate Microcytosis (manual) Ovalocytes PT INR APTT Sodium 136 Potassium 3.9 Chloride 97 L Carbon Dioxide 29 Anion Gap 13 BUN 15 Creatinine 0.8 Est GFR ( Amer) > 60 Est GFR (Non-Af Amer) > 60 Random Glucose 117 H Calcium 8.8 Total Bilirubin 1.3 AST 18 ALT 21 Alkaline Phosphatase 89 Troponin I < 0.0120 Total Protein 7.4 Albumin 3.9 Globulin 3.5 Albumin/Globulin Ratio 1.1 Triglycerides 91 Cholesterol 161 LDL Cholesterol Direct 98 HDL Cholesterol 39 Urine Color Urine Clarity Urine pH Ur Specific [place] Urine Protein Urine Glucose (UA) Urine Ketones Urine Blood Urine Nitrate Urine Bilirubin Urine Urobilinogen Ur Leukocyte Esterase Urine WBC (Auto) Urine RBC (Auto) Ur Squamous Epith Cells Urine Bacteria Hyaline Casts Blood Type AB POSITIVE Antibody Screen Negative
[2017-04-19 07:57] LABS: BASO % 0.6 % (0.0-2.0); EOS # 0.1 K/uL (0.0-0.7); EOS % 2.1 % (0.0-4.0); HEMOGLOBIN 13.6 g/dL (11.0-16.0); LYMPH # 1.2 K/uL (1.0-4.3); LYMPH % 20.3 % (20.0-40.0); MEAN CELL VOLUME 77.3 fL (81.0-99.0); MEAN CORPUSCULAR HEMOGLOBIN 25.2 pg (27.0-31.0); MEAN CORPUSCULAR HGB CONC 32.6 g/dL (33.0-37.0); MEAN PLATELET VOLUME 8.1 fL (7.2-11.7); MONO # 0.6 K/uL (0.0-0.8); NEUT # 4.1 K/uL (1.8-7.0); RBC 5.39 Mil/uL (3.80-5.20); RED CELL DISTRIBUTION WIDTH 21.2 % (11.5-14.5)
[2017-04-19 08:29] LABS: ALBUMIN 3.3 g/dL (3.5-5.0); ALT/SGPT 35 U/L (9-52); AST/SGOT 40 U/L (14-36); BLOOD UREA NITROGEN 13 mg/dL (7-17); CALCIUM 8.1 mg/dl (8.6-10.4); GFR AFRICAN-AMERICAN > 60; GFR NON-AFRICAN AMERICAN > 60
[2017-04-19 08:37] LABS: CK-MB 0.61 ng/mL (0.0-3.38)
[2017-04-19 08:40] LABS: FREE T4 1.53 ng/dL (0.78-2.19)
[2017-04-19 12:03] LABS: ANA PATTERN SPECKLED
--- NOTE | 2017-04-19 12:38 | VASCLAB ---
PROCEDURE: HISTORY: assess stenosis COMPARISON: None available. TECHNIQUE: Grayscale and duplex Doppler evaluation of the cervical carotid and vertebral arteries were performed. The common carotid, carotid bifurcations and cervical Internal Carotid Artery (ICA) and proximal External Carotid Artery (ECA) were evaluated. The vertebral arteries were evaluated for gross patency and flow direction. Report prepared by Jeramie Bradford, BS, RVT FINDINGS: RIGHT CAROTID ARTERIES: 1. Common Carotid Artery: No significant focal plaque formation of the right common carotid artery. Maximum Peak Systolic velocity: 55 cm/sec: End-diastolic velocity 17 cm/sec. 2. Carotid Bifurcation: plaque formation. Maximum Peak Systolic velocity: 55 cm/sec: End-diastolic velocity 14 cm/sec. 3. Internal Carotid Artery: Plaque description: 3.1. Proximal Segment: Peak systolic velocity 50 cm/sec: End-diastolic velocity 17 cm/sec - % stenosis 0-15% 3.2. Middle Segment: Peak systolic velocity 46 cm/sec: End-diastolic velocity 8 cm/sec - % stenosis 0-15% 3.3. Distal Segment: Peak systolic velocity 40 cm/sec: End-diastolic velocity 9 cm/sec - % stenosis 0-15% 4. External Carotid Artery: No significant focal plaque formation. Peak systolic velocity 59 cm/sec 5. ICA/CCA Ratio: 1.0 LEFT CAROTID ARTERIES: 1. Common Carotid Artery: No significant focal plaque formation of the left common carotid artery. Maximum Peak Systolic velocity: 60 cm/sec: End-diastolic velocity 13 cm/sec. 2. Carotid Bifurcation: plaque formation. Maximum Peak Systolic velocity: 55 cm/sec: End-diastolic velocity 18 cm/sec. 3. Internal Carotid Artery: Plaque description: 3.1. Proximal Segment: Peak systolic velocity 57 cm/sec: End-diastolic velocity 16 cm/sec - % stenosis 0-15% 3.2. Middle Segment: Peak systolic velocity 23 cm/sec: End-diastolic velocity 9 cm/sec - % stenosis 0-15% 3.3. Distal Segment: Peak systolic velocity 66 cm/sec: End-diastolic velocity 28 cm/sec - % stenosis 0-15% 4. External Carotid Artery: No significant focal plaque formation. Peak systolic velocity 38 cm/sec 5. ICA/CCA Ratio: 1.1 VERTEBRAL ARTERIES: 1. Right Vertebral Artery: The right vertebral artery flow direction is antegrade. 2. Left Vertebral Artery: The left vertebral artery flow direction is antegrade. OTHER FINDINGS: 1. Right Brachial Blood pressure: 166 mmHg. 2. Left Brachial Blood pressure: 160 mmHg. IMPRESSION: RIGHT: Duplex scan does not suggest hemodynamically significant stenosis of the right extracranial carotid arteries. LEFT: Low peak systolic velocity in the mid left internal carotid artery may suggest a distal stenosis. CTA or MRA of the head/neck can be obtained for further evaluation as clinically warranted.
--- NOTE | 2017-04-19 13:33 | CARD ---
APPROVED REPORT EKG Measurement Heart [id number] <Conclusion> Atrial flutter,fib with variable AV block Incomplete right bundle branch block ST & T wave abnormality, consider anterolateral ischemia Abnormal ECG baseline artifacts
--- NOTE | 2017-04-19 15:54 | CP.PCM.CON ---
History of Present Illness - History of Present Illness History of Present Illness: Patient seen and evaluated Admitted for CVA Hx of A Fib Not on AC due to falls, dementia and GI bleed Continue ASA Will follow Past Patient History - Past Medical History & Family History Past Medical History?: Yes - Past Social History Smoking Status: Former Smoker - CARDIAC Hx Atrial Fibrillation: Yes Hx Cardia Arrhythmia: Yes (A FIB) Hx Hypercholesterolemia: Yes Hx Hypertension: Yes - PULMONARY Hx Respiratory Disorders: No - NEUROLOGICAL Hx Dementia: Yes - HEENT Hx HEENT Problems: Yes - RENAL Hx Chronic Kidney Disease: No - ENDOCRINE/METABOLIC Hx Endocrine Disorders: No - HEMATOLOGICAL/ONCOLOGICAL Hx Anemia: Yes - INTEGUMENTARY Hx Dermatological Problems: No - MUSCULOSKELETAL/RHEUMATOLOGICAL Hx Arthritis: Yes Hx Falls: Yes Hx Fractures: No Hx Osteoporosis: Yes - GASTROINTESTINAL Hx Gastrointestinal Disorders: Yes Other/Comment: GI blood - GENITOURINARY/GYNECOLOGICAL Hx Genitourinary Disorders: No - PSYCHIATRIC Hx Substance Use: No - SURGICAL HISTORY Hx Surgeries: Yes Hx Joint Replacement: Yes (right knee) - ANESTHESIA Hx Anesthesia: Yes Hx Anesthesia Reactions: No Meds Allergies/Adverse Reactions: Allergies Allergy/AdvReac Type Severity Reaction Status Date / Time No Known Allergies Allergy Verified 04/18/17 15:52 - Medications Medications: Current Medications Clopidogrel Bisulfate (Plavix) 75 mg PO DAILY [facility] Last Admin: 04/19/17 10:07 Dose: 75 mg Docusate Sodium (Colace) 100 mg PO BID [facility] Last Admin: 04/19/17 09:53 Dose: 100 mg Ferrous Sulfate (Feosol) 325 mg PO DAILY [facility] Last Admin: 04/19/17 09:53 Dose: 325 mg Heparin Sodium (Porcine) (Heparin) 5,000 units SC Q8 [facility] Last Admin: 04/19/17 14:38 Dose: 5,000 units Metoprolol Tartrate (Lopressor) 25 mg PO BID [facility] Last Admin: 04/19/17 10:11 Dose: 25 mg Rosuvastatin Calcium (Crestor) 5 mg PO HS [facility] Last Admin: 04/18/17 21:36 Dose: 5 mg Results - Vital Signs Recent Vital Signs: Last Vital Signs Temp 98.1 F 04/18/17 23:37 Pulse 98 H 04/19/17 12:13 Resp 20 04/18/17 23:37 BP 139/82 04/19/17 10:11 Pulse Ox 97 04/18/17 23:37 - Labs Result Diagrams: 04/19/17 07:47 04/19/17 07:47 Labs: Laboratory Results - last 24 hr 04/18/17 04/18/17 04/18/17 15:58 16:24 16:24 WBC 8.0 RBC 5.86 H Hgb 14.6 D Hct 45.4 MCV 77.5 L D MCH 24.9 L MCHC 32.1 L RDW 21.6 H Plt Count 225 MPV 8.7 Neut % (Auto) 68.8 Lymph % (Auto) 19.2 L [place] % (Auto) 7.1 Eos % (Auto) 1.1 Baso % (Auto) 3.8 H Neut # 5.5 Lymph # 1.5 [place] # 0.6 Eos # 0.1 Baso # 0.3 H Neutrophils % (Manual) 68 Band Neutrophils % 2 Lymphocytes % (Manual) 16 L Monocytes % (Manual) 10 Eosinophils % (Manual) 3 Basophils % (Manual) 1 Platelet Estimate Normal Microcytosis (manual) Slight Ovalocytes Slight ESR PT 12.3 H INR 1.1 APTT 25 Sodium Potassium Chloride Carbon Dioxide Anion Gap BUN Creatinine Est GFR ( Amer) Est GFR (Non-Af Amer) POC Glucose (mg/dL) Random Glucose Hemoglobin A1c Calcium Magnesium Total Bilirubin AST ALT Alkaline Phosphatase Total Creatine Kinase CK-MB (Mass) Troponin I C-React Prot High Sens Total Protein Albumin Globulin Albumin/Globulin Ratio Triglycerides Cholesterol LDL Cholesterol Direct HDL Cholesterol Free T4 TSH 3rd Generation Urine Color Yellow Urine Clarity Hazy Urine pH 5.0 Ur Specific [place] 1.021 Urine Protein 1+ H Urine Glucose (UA) Normal Urine Ketones Trace Urine Blood Negative Urine Nitrate Negative Urine Bilirubin Negative Urine Urobilinogen 2.0 H Ur Leukocyte Esterase 1+ H Urine WBC (Auto) 23 H Urine RBC (Auto) 2 Ur Squamous Epith Cells 13 H Urine Bacteria Rare Hyaline Casts 6-10 H RAHUL 6 Profile RAHUL Titer RAHUL Pattern Blood Type Antibody Screen 04/18/17 04/18/17 04/18/17 16:24 16:24 16:24 WBC RBC Hgb Hct MCV MCH MCHC RDW Plt Count MPV Neut % (Auto) Lymph % (Auto) [place] % (Auto) Eos % (Auto) Baso % (Auto) Neut # Lymph # [place] # Eos # Baso # Neutrophils % (Manual) Band Neutrophils % Lymphocytes % (Manual) Monocytes % (Manual) Eosinophils % (Manual) Basophils % (Manual) Platelet Estimate Microcytosis (manual) Ovalocytes ESR PT INR APTT Sodium 136 Potassium 3.9 Chloride 97 L Carbon Dioxide 29 Anion Gap 13 BUN 15 Creatinine 0.8 Est GFR ( Amer) > 60 Est GFR (Non-Af Amer) > 60 POC Glucose (mg/dL) Random Glucose 117 H Hemoglobin A1c 5.7 Calcium 8.8 Magnesium Total Bilirubin 1.3 AST 18 ALT 21 Alkaline Phosphatase 89 Total Creatine Kinase CK-MB (Mass) Troponin I < 0.0120 C-React Prot High Sens Total Protein 7.4 Albumin 3.9 Globulin 3.5 Albumin/Globulin Ratio 1.1 Triglycerides 91 Cholesterol 161 LDL Cholesterol Direct 98 HDL Cholesterol 39 Free T4 TSH 3rd Generation Urine Color Urine Clarity Urine pH Ur Specific [place] Urine Protein Urine Glucose (UA) Urine Ketones Urine Blood Urine Nitrate Urine Bilirubin Urine Urobilinogen Ur Leukocyte Esterase Urine WBC (Auto) Urine RBC (Auto) Ur Squamous Epith Cells Urine Bacteria Hyaline Casts RAHUL 6 Profile RAHUL Titer RAHUL Pattern Blood Type AB POSITIVE Antibody Screen Negative 04/18/17 04/19/17 04/19/17 21:23 07:47 07:47 WBC RBC Hgb Hct MCV MCH MCHC RDW Plt Count MPV Neut % (Auto) Lymph % (Auto) [place] % (Auto) Eos % (Auto) Baso % (Auto) Neut # Lymph # [place] # Eos # Baso # Neutrophils % (Manual) Band Neutrophils % Lymphocytes % (Manual) Monocytes % (Manual) Eosinophils % (Manual) Basophils % (Manual) Platelet Estimate Microcytosis (manual) Ovalocytes ESR 4 PT INR APTT Sodium Potassium Chloride Carbon Dioxide Anion Gap BUN Creatinine Est GFR ( Amer) Est GFR (Non-Af Amer) POC Glucose (mg/dL) 102 Random Glucose Hemoglobin A1c Calcium Magnesium Total Bilirubin AST ALT Alkaline Phosphatase Total Creatine Kinase CK-MB (Mass) Troponin I C-React Prot High Sens Total Protein Albumin Globulin Albumin/Globulin Ratio Triglycerides Cholesterol LDL Cholesterol Direct HDL Cholesterol Free T4 TSH 3rd Generation Urine Color Urine Clarity Urine pH Ur Specific [place] Urine Protein Urine Glucose (UA) Urine Ketones Urine Blood Urine Nitrate Urine Bilirubin Urine Urobilinogen Ur Leukocyte Esterase Urine WBC (Auto) Urine RBC (Auto) Ur Squamous Epith Cells Urine Bacteria Hyaline Casts RAHUL 6 Profile Positive H RAHUL Titer 1:160 H RAHUL Pattern Speckled H Blood Type Antibody Screen 04/19/17 04/19/17 04/19/17 07:47 07:47 07:47 WBC 6.0 RBC 5.39 H Hgb 13.6 Hct 41.6 MCV 77.3 L MCH 25.2 L MCHC 32.6 L RDW 21.2 H Plt Count 183 MPV 8.1 Neut % (Auto) 67.0 Lymph % (Auto) 20.3 [place] % (Auto) 10.0 Eos % (Auto) 2.1 Baso % (Auto) 0.6 Neut # 4.1 Lymph # 1.2 [place] # 0.6 Eos # 0.1 Baso # 0.0 Neutrophils % (Manual) Band Neutrophils % Lymphocytes % (Manual) Monocytes % (Manual) Eosinophils % (Manual) Basophils % (Manual) Platelet Estimate Microcytosis (manual) Ovalocytes ESR PT INR APTT Sodium Potassium Chloride Carbon Dioxide Anion Gap BUN Creatinine Est GFR ( Amer) Est GFR (Non-Af Amer) POC Glucose (mg/dL) Random Glucose Hemoglobin A1c 5.6 Calcium Magnesium Total Bilirubin AST ALT Alkaline Phosphatase Total Creatine Kinase CK-MB (Mass) Troponin I C-React Prot High Sens 2.44 Total Protein Albumin Globulin Albumin/Globulin Ratio Triglycerides Cholesterol LDL Cholesterol Direct HDL Cholesterol Free T4 1.53 TSH 3rd Generation 1.78 Urine Color Urine Clarity Urine pH Ur Specific [place] Urine Protein Urine Glucose (UA) Urine Ketones Urine Blood Urine Nitrate Urine Bilirubin Urine Urobilinogen Ur Leukocyte Esterase Urine WBC (Auto) Urine RBC (Auto) Ur Squamous Epith Cells Urine Bacteria Hyaline Casts RAHUL 6 Profile RAHUL Titer RAHUL Pattern Blood Type Antibody Screen 04/19/17 07:47 WBC RBC Hgb Hct MCV MCH MCHC RDW Plt Count MPV Neut % (Auto) Lymph % (Auto) [place] % (Auto) Eos % (Auto) Baso % (Auto) Neut # Lymph # [place] # Eos # Baso # Neutrophils % (Manual) Band Neutrophils % Lymphocytes % (Manual) Monocytes % (Manual) Eosinophils % (Manual) Basophils % (Manual) Platelet Estimate Microcytosis (manual) Ovalocytes ESR PT INR APTT Sodium 136 Potassium 3.9 Chloride 101 Carbon Dioxide 29 Anion Gap 10 BUN 13 Creatinine 0.7 Est GFR ( Amer) > 60 Est GFR (Non-Af Amer) > 60 POC Glucose (mg/dL) Random Glucose 92 Hemoglobin A1c Calcium 8.1 L Magnesium 1.7 Total Bilirubin 1.3 AST 40 H D ALT 35 Alkaline Phosphatase 81 Total Creatine Kinase 25 L CK-MB (Mass) 0.61 Troponin I 0.0180 C-React Prot High Sens Total Protein 6.4 Albumin 3.3 L Globulin 3.1 Albumin/Globulin Ratio 1.0 Triglycerides Cholesterol LDL Cholesterol Direct HDL Cholesterol Free T4 TSH 3rd Generation Urine Color Urine Clarity Urine pH Ur Specific [place] Urine Protein Urine Glucose (UA) Urine Ketones Urine Blood Urine Nitrate Urine Bilirubin Urine Urobilinogen Ur Leukocyte Esterase Urine WBC (Auto) Urine RBC (Auto) Ur Squamous Epith Cells Urine Bacteria Hyaline Casts RAHUL 6 Profile RAHUL Titer RAHUL Pattern Blood Type Antibody Screen
--- NOTE | 2017-04-19 17:02 | CT ---
PROCEDURE: CT HEAD WITHOUT CONTRAST. HISTORY: vision change/ repeat COMPARISON: 04/18/2017 TECHNIQUE: Axial computed tomography images were obtained through the head/brain without intravenous contrast. Radiation dose: Total exam DLP = 2313 mGy-cm. This CT exam was performed using one or more of the following dose reduction techniques: Automated exposure control, adjustment of the mA and/or kV according to patient size, and/or use of iterative reconstruction technique. FINDINGS: HEMORRHAGE: No intracranial hemorrhage. BRAIN: The previously referenced right occipital lobe hypodensity concerning for an acute/ subacute infarction right posterior cerebral artery territory is similar in appearance. Right thalamic infarct is similar in appearance there is obliteration of the ipsilateral right sulci consistent with concomitant the mild mass effect. No midline shift the appreciated. The right frontal lobe hypodensity without significant mass effect -previously referenced as suggesting an old infarct here some encephalomalacic changes is similar in appearance. The left caudate/basal ganglion chronic appearing lacune is as before. Bilateral periventricular hypodensities consistent with microvascular ischemic changes are similar in appearance. VENTRICLES: Unremarkable. No hydrocephalus. CALVARIUM: Unremarkable. PARANASAL SINUSES: Ethmoidal sinus mucosal inflammatory changes. Air-fluid levels in the sphenoid sinus extending into a left lateral sphenoid sinus extension - developmental variant noted. Findings could known element of acute sinusitis here is well. MASTOID AIR CELLS: Unremarkable as visualized. No inflammatory changes. OTHER FINDINGS: None. IMPRESSION: Right occipital lobe appearance consistent with an acute subacute infarction- right posterior cerebral artery territory. No hemorrhage. No midline shift Sphenoid acute sinusitis. Mild ethmoidal sinus inflammatory changes
[2017-04-19 17:06] LABS: RAPID PLASMA REAGIN NONREACTIVE (NONREACTIVE)
--- NOTE | 2017-04-19 18:44 | CP.PCM.PN ---
Subjective - Date & Time of Evaluation Date of Evaluation: 04/19/17 Time of Evaluation: 18:40 - Subjective Subjective: pt is able to sit up ignoring the left side repeat ct head showing rt occipital and RT PICA infarct lilkly because of frequent falls and h/o rectal bleed eliquis was withheld and placed on low dose aspirin now spoke to neurology will closely monitor now afib with rapid rvr increase metoprolol add cardizem if needed fall precautions d/c pt daughter continue plavix only now high risk of bleeding and will hold full anticoagulation echo cardio and neuro f/u physical theraphy Objective - Vital Signs/Intake and Output Vital Signs (last 24 hours): Temp Pulse Resp BP Pulse Ox 98 F 100 H 20 150/80 95 04/19/17 15:25 04/19/17 15:25 04/19/17 15:25 04/19/17 18:12 04/19/17 15:25 Intake and Output: 04/19/17 04/19/17 06:59 18:59 Output Total 75 Balance -75 - Medications Medications: Current Medications Clopidogrel Bisulfate (Plavix) 75 mg PO DAILY [facility] Last Admin: 04/19/17 10:07 Dose: 75 mg Docusate Sodium (Colace) 100 mg PO BID [facility] Last Admin: 04/19/17 18:11 Dose: 100 mg Ferrous Sulfate (Feosol) 325 mg PO DAILY [facility] Last Admin: 04/19/17 09:53 Dose: 325 mg Heparin Sodium (Porcine) (Heparin) 5,000 units SC Q8 [facility] Last Admin: 04/19/17 14:38 Dose: 5,000 units Metoprolol Tartrate (Lopressor) 25 mg PO BID [facility] Last Admin: 04/19/17 18:12 Dose: 25 mg Rosuvastatin Calcium (Crestor) 5 mg PO HS [facility] Last Admin: 04/18/17 21:36 Dose: 5 mg - Labs Labs: 04/19/17 07:47 04/19/17 07:47 PT 12.3 SECONDS (9.7-12.2) H 04/18/17 16:24 INR 1.1 04/18/17 16:24 APTT 25 SECONDS (21-34) 04/18/17 16:24
--- NOTE | 2017-04-19 21:28 | CP.PCM.CON ---
History of Present Illness - History of Present Illness History of Present Illness: CONSULT DICTATED ACUTE VISUAL DISTURBANCES GIANT CELL ARTERITIS VS EMBOLIC SOURCE FROM AFIB MRI /CAROTID DOPPLER/ECHO CARDIOLOGY CONSULT CONSIDER LOW DOSE ANTICOAGULATION WITH LOW DOSE AND ANTI PLATELETS FALL PRECAUTION Past Patient History - Past Medical History & Family History Past Medical History?: Yes - Past Social History Smoking Status: Former Smoker - CARDIAC Hx Atrial Fibrillation: Yes Hx Cardia Arrhythmia: Yes (A FIB) Hx Hypercholesterolemia: Yes Hx Hypertension: Yes - PULMONARY Hx Respiratory Disorders: No - NEUROLOGICAL Hx Dementia: Yes - HEENT Hx HEENT Problems: Yes - RENAL Hx Chronic Kidney Disease: No - ENDOCRINE/METABOLIC Hx Endocrine Disorders: No - HEMATOLOGICAL/ONCOLOGICAL Hx Anemia: Yes - INTEGUMENTARY Hx Dermatological Problems: No - MUSCULOSKELETAL/RHEUMATOLOGICAL Hx Arthritis: Yes Hx Falls: Yes Hx Fractures: No Hx Osteoporosis: Yes - GASTROINTESTINAL Hx Gastrointestinal Disorders: Yes Other/Comment: GI blood - GENITOURINARY/GYNECOLOGICAL Hx Genitourinary Disorders: No - PSYCHIATRIC Hx Substance Use: No - SURGICAL HISTORY Hx Surgeries: Yes Hx Joint Replacement: Yes (right knee) - ANESTHESIA Hx Anesthesia: Yes Hx Anesthesia Reactions: No Meds Allergies/Adverse Reactions: Allergies Allergy/AdvReac Type Severity Reaction Status Date / Time No Known Allergies Allergy Verified 04/18/17 15:52 - Medications Medications: Current Medications Clopidogrel Bisulfate (Plavix) 75 mg PO DAILY [facility] Last Admin: 04/19/17 10:07 Dose: 75 mg Docusate Sodium (Colace) 100 mg PO BID [facility] Last Admin: 04/19/17 18:11 Dose: 100 mg Ferrous Sulfate (Feosol) 325 mg PO DAILY [facility] Last Admin: 04/19/17 09:53 Dose: 325 mg Heparin Sodium (Porcine) (Heparin) 5,000 units SC Q8 [facility] Last Admin: 04/19/17 14:38 Dose: 5,000 units Metoprolol Tartrate (Lopressor) 50 mg PO BID [facility] Rosuvastatin Calcium (Crestor) 5 mg PO HS [facility] Last Admin: 04/18/17 21:36 Dose: 5 mg Results - Vital Signs Recent Vital Signs: Last Vital Signs Temp 98 F 04/19/17 15:25 Pulse 102 H 04/19/17 18:00 Resp 20 04/19/17 15:25 BP 150/80 04/19/17 18:12 Pulse Ox 95 01/02/18 15:25 - Labs Result Diagrams: 04/19/17 07:47 04/19/17 07:47 Labs: Laboratory Results - last 24 hr 04/18/17 04/19/17 04/19/17 21:23 07:47 07:47 WBC RBC Hgb Hct MCV MCH MCHC RDW Plt Count MPV Neut % (Auto) Lymph % (Auto) [place] % (Auto) Eos % (Auto) Baso % (Auto) Neut # Lymph # [place] # Eos # Baso # ESR 4 Sodium Potassium Chloride Carbon Dioxide Anion Gap BUN Creatinine Est GFR ( Amer) Est GFR (Non-Af Amer) POC Glucose (mg/dL) 102 Random Glucose Hemoglobin A1c Calcium Magnesium Total Bilirubin AST ALT Alkaline Phosphatase Total Creatine Kinase CK-MB (Mass) Troponin I C-React Prot High Sens Total Protein Albumin Globulin Albumin/Globulin Ratio Free T4 TSH 3rd Generation RAHUL 6 Profile Positive H RAHUL Titer 1:160 H RAHUL Pattern Speckled H RPR Nonreactive 04/19/17 04/19/17 04/19/17 07:47 07:47 07:47 WBC 6.0 RBC 5.39 H Hgb 13.6 Hct 41.6 MCV 77.3 L MCH 25.2 L MCHC 32.6 L RDW 21.2 H Plt Count 183 MPV 8.1 Neut % (Auto) 67.0 Lymph % (Auto) 20.3 [place] % (Auto) 10.0 Eos % (Auto) 2.1 Baso % (Auto) 0.6 Neut # 4.1 Lymph # 1.2 [place] # 0.6 Eos # 0.1 Baso # 0.0 ESR Sodium Potassium Chloride Carbon Dioxide Anion Gap BUN Creatinine Est GFR ( Amer) Est GFR (Non-Af Amer) POC Glucose (mg/dL) Random Glucose Hemoglobin A1c 5.6 Calcium Magnesium Total Bilirubin AST ALT Alkaline Phosphatase Total Creatine Kinase CK-MB (Mass) Troponin I C-React Prot High Sens 2.44 Total Protein Albumin Globulin Albumin/Globulin Ratio Free T4 1.53 TSH 3rd Generation 1.78 RAHUL 6 Profile RAHUL Titer RAHUL Pattern RPR 04/19/17 04/19/17 04/19/17 07:47 17:04 20:52 WBC RBC Hgb Hct MCV MCH MCHC RDW Plt Count MPV Neut % (Auto) Lymph % (Auto) [place] % (Auto) Eos % (Auto) Baso % (Auto) Neut # Lymph # [place] # Eos # Baso # ESR Sodium 136 Potassium 3.9 Chloride 101 Carbon Dioxide 29 Anion Gap 10 BUN 13 Creatinine 0.7 Est GFR ( Amer) > 60 Est GFR (Non-Af Amer) > 60 POC Glucose (mg/dL) 75 90 Random Glucose 92 Hemoglobin A1c Calcium 8.1 L Magnesium 1.7 Total Bilirubin 1.3 AST 40 H D ALT 35 Alkaline Phosphatase 81 Total Creatine Kinase 25 L CK-MB (Mass) 0.61 Troponin I 0.0180 C-React Prot High Sens Total Protein 6.4 Albumin 3.3 L Globulin 3.1 Albumin/Globulin Ratio 1.0 Free T4 TSH 3rd Generation RAHUL 6 Profile RAHUL Titer RAHUL Pattern RPR
--- NOTE | 2017-04-20 06:44 | CON ---
DATE: ATTENDING PHYSICIAN: Jamilah Mccauley MD LOCATION: Patient's room number 665, bed A. REASON FOR THE CONSULTATION: Vision loss. CHIEF COMPLAINT: The patient was [facility] with a history of visual disturbances. From neurological point of view, I was called in to evaluate her for further management. HISTORY OF PRESENT ILLNESS: Ms. Joceline Valencia is an 81-year-old, moderately obese, right-handed female, in usual state of health in the [facility]. The staff members in the [facility] found that she had visual disturbances and also she was complaining herself. The patient was found to be holding a staff member up. No history of fall. No history of trauma. No history of involuntary movements. No history of loss of consciousness. She stated that she never had complaints like this before. No history of headaches. No history of jaw pain. No history of fever or loss of weight. She denies any numbness, weakness, shortness of breath or any focal weakness. PAST MEDICAL HISTORY: Hypertension, osteoporosis, dyslipidemia, atrial fibrillation, dementia. PERSONAL HISTORY: Denies smoking or alcohol use. ALLERGIES: NO KNOWN ALLERGIES. REVIEW OF SYSTEMS: A 12-point review of systems reviewed. From neuro, visual disturbances. MEDICATIONS: Colace, Crestor, Feosol, heparin, Lopressor and Plavix. PHYSICAL EXAMINATION: VITAL SIGNS: Blood pressure 115/101, mean arterial pressure of 105, respiratory rate 18, temperature afebrile. NECK: Supple. No carotid bruit. HEART: Sounds irregular. CHEST: Fair air entry. EXTREMITIES: No edema in legs. NEUROLOGIC: Mental status: She is awake, easily arousable with verbally calling her first name. She knows she is in her room; however, after a few minutes, she corrected herself she is in the hospital. She knows the year. She knows her age by reversing her age, stating that she is 27 and with smiling. She moves all 4 extremities without any problem. Cranial nerve examination: Seems she has some visual discrepancies of counting the fingers on either side. It seems to look like whole visual disturbances in all peripheral field. Pupils are reactive to light. Extraocular movements are normal. No nystagmus. No facial sensory deficit. No facial asymmetry. Hearing is normal. Tongue is midline. Good gag. Motor examination: Outstretched hand with eyes closed, no drift noted. Power is symmetric on either side. Significant distal muscle group atrophy noted. Deep tendon reflexes: Biceps, brachioradialis, triceps 1+. Both knees are 1+. Both ankles are absent. Plantars are upgoing. Sensory examination: Grossly intact. Mild sensory motor neuropathy. Plantars are upgoing on both sides. Gait is deferred at this time. LABORATORY DATA: MRI workup, MRI attached. CT of the head reviewed, no acute stroke process. EKG shows atrial flutter. BLOOD WORKUP: WBC 8.0, hemoglobin 14.6, hematocrit 45.4, platelets 225. PT 12.3, INR 1.1, PTT 25. Sodium 136, potassium 3.6, chloride 97, bicarbonate 29, BUN 15, creatinine 0.8, GFR more than 60, cholesterol 161, LDL 98, HDL 39. Urine: 1+ proteinuria, 2+ urobilinogen, wbc's 23 with hyaline cast. CONCLUSION: Ms. Joceline Valencia has been suffering from neurological , looks like peripheral visual disturbances without any long tract sign. The patient does not show any clinical evidence of temporal arteritis; however, considering age, temporal arteritis (giant cell arteritis) should be considered. The patient does have peripheral neuropathy, which is a preexisting condition. RECOMMENDATIONS: 1. Sed rate and CRP is requested. 2. MRI of the brain, MRA of the [place] of the [place], carotid Doppler and echocardiogram also requested. 3. Patient failed with aspirin and we will switch to Plavix at present. 4. Cardiology consultation is considered because of cardiac arrhythmias. The patient may be the candidate for longstanding anticoagulation. The patient will be followed closely with you. Devendra Su MD [place]
--- NOTE | 2017-04-20 08:01 | PN ---
DATE: 04/20/2017 NEUROLOGICAL PROBLEM: Right WOOD HE[employer]AP [employer]ERTER stroke involving occipital lobe manifesting with left homonymous hemianopsia, which is next to a cardioembolic stroke. PHYSICAL EXAMINATION: VITAL SIGNS: Blood pressure 150/80, mean arterial pressure of 110, respiratory rate 18, temperature 98 degrees Fahrenheit. Pulse rate 100, irregular. NEUROLOGIC: The patient is not arousable on calling her name. On tactile stimuli, she is arousable. She is mumbling, answering one-word questions. She falls back to sleep. Does not follow commands as per the aide who is sitting next to her. She stated that she is confused. She does not follow any commands. Sometimes, she is disoriented. Rest of the examination is unchanged. RECOMMENDATION: The patient is on Plavix at present. Considering her large vessel stroke with risk factor of paroxysmal atrial fibrillation, the patient should be placed on long-term anticoagulation. Considering her hemorrhagic conversion, this can be started next week, probably Eliquis 2.5 mg twice a day, which can be increased to 5 mg twice a day 3 weeks later if she is stable. In the meantime, sequential stockings for DVT prophylaxis and bedside physical therapy. Feeding only with assistance. Devendra Su MD
--- NOTE | 2017-04-20 21:24 | CP.PCM.PN ---
Subjective - Date & Time of Evaluation Date of Evaluation: 04/20/17 Time of Evaluation: 21:23 - Subjective Subjective: Is and is now sitting up in the chest. She still continues to. Alert, awake. She ate and, she is able to walk. No visible neurological damage, except on the left side visual disturbance is noted Labs reviewed CAT scan of the head showing evidence of right occipital lobe infarct noted. Vital signs noted. Currently on an antiplatelets Plavix. Continue the current treatment. Spoke to the family. Physical therapy. Precaution. Will follow the patient Objective - Vital Signs/Intake and Output Vital Signs (last 24 hours): Temp Pulse Resp BP Pulse Ox 97.9 F 86 20 139/86 95 04/20/17 15:49 04/20/17 16:00 04/20/17 15:49 04/20/17 15:49 04/20/17 15:49 - Medications Medications: Current Medications Clopidogrel Bisulfate (Plavix) 75 mg PO DAILY [facility] Last Admin: 04/20/17 09:52 Dose: 75 mg Docusate Sodium (Colace) 100 mg PO BID [facility] Last Admin: 04/20/17 17:26 Dose: 100 mg Ferrous Sulfate (Feosol) 325 mg PO DAILY [facility] Last Admin: 04/20/17 09:52 Dose: 325 mg Heparin Sodium (Porcine) (Heparin) 5,000 units SC Q8 [facility] Last Admin: 04/20/17 14:35 Dose: 5,000 units Metoprolol Tartrate (Lopressor) 50 mg PO BID [facility] Last Admin: 04/20/17 17:26 Dose: 50 mg Rosuvastatin Calcium (Crestor) 5 mg PO HS [facility] Last Admin: 04/19/17 22:11 Dose: 5 mg - Labs Labs: 04/19/17 07:47 04/19/17 07:47 PT 12.3 SECONDS (9.7-12.2) H 04/18/17 16:24 INR 1.1 04/18/17 16:24 APTT 25 SECONDS (21-34) 04/18/17 16:24
--- NOTE | 2017-04-20 23:39 | CP.PCM.PN ---
Subjective - Date & Time of Evaluation Date of Evaluation: 04/20/17 Time of Evaluation: 07:30 - Subjective Subjective: Patient seen and evaluated No cardiac events noted Patient denies chest pain and dyspnea Objective - Vital Signs/Intake and Output Vital Signs (last 24 hours): Temp Pulse Resp BP Pulse Ox 97.9 F 86 20 139/86 95 04/20/17 15:49 04/20/17 16:00 04/20/17 15:49 04/20/17 15:49 04/20/17 15:49 - Medications Medications: Current Medications Clopidogrel Bisulfate (Plavix) 75 mg PO DAILY [facility] Last Admin: 04/20/17 09:52 Dose: 75 mg Docusate Sodium (Colace) 100 mg PO BID [facility] Last Admin: 04/20/17 17:26 Dose: 100 mg Ferrous Sulfate (Feosol) 325 mg PO DAILY [facility] Last Admin: 04/20/17 09:52 Dose: 325 mg Heparin Sodium (Porcine) (Heparin) 5,000 units SC Q8 [facility] Last Admin: 04/20/17 22:16 Dose: 5,000 units Metoprolol Tartrate (Lopressor) 50 mg PO BID [facility] Last Admin: 04/20/17 17:26 Dose: 50 mg Rosuvastatin Calcium (Crestor) 5 mg PO HS [facility] Last Admin: 04/20/17 22:16 Dose: 5 mg - Labs Labs: 04/19/17 07:47 04/19/17 07:47 PT 12.3 SECONDS (9.7-12.2) H 04/18/17 16:24 INR 1.1 04/18/17 16:24 APTT 25 SECONDS (21-34) 04/18/17 16:24
[2017-04-21 19:03] LABS: SQUAMOUS EPITHIAL 9 /hpf (0-5); URINE BACTERIA MANY (<OCC); URINE BILIRUBIN NEGATIVE (NEGATIVE); URINE BLOOD 1+ (NEGATIVE); URINE CALCIUM OXALATE CRYSTALS OCC /hpf (<OCC); URINE CLARITY Hazy (Clear); URINE COLOR Amber (YELLOW); URINE GLUCOSE (UA) NORMAL (Normal); URINE LEUKOCYTE ESTERASE 3+ Leu/uL (Negative); URINE PROTEIN 1+ mg/dL (NEGATIVE)
--- NOTE | 2017-04-21 22:08 | CP.PCM.PN ---
Subjective - Date & Time of Evaluation Date of Evaluation: 04/21/17 Time of Evaluation: 09:05 - Subjective Subjective: Patient seen and evaluated No new events noted Patient not in distress Objective - Vital Signs/Intake and Output Vital Signs (last 24 hours): Temp Pulse Resp BP Pulse Ox 98.1 F 89 18 108/69 94 L 04/21/17 16:00 04/21/17 18:00 04/21/17 16:00 04/21/17 16:00 04/21/17 16:00 Intake and Output: 04/21/17 04/22/17 18:59 06:59 Intake Total 480 Balance 480 - Medications Medications: Current Medications Clopidogrel Bisulfate (Plavix) 75 mg PO DAILY [facility] Last Admin: 04/21/17 09:48 Dose: 75 mg Docusate Sodium (Colace) 100 mg PO BID [facility] Last Admin: 04/21/17 17:17 Dose: 100 mg Ferrous Sulfate (Feosol) 325 mg PO DAILY [facility] Last Admin: 04/21/17 09:48 Dose: 325 mg Heparin Sodium (Porcine) (Heparin) 5,000 units SC Q8 [facility] Last Admin: 04/21/17 21:53 Dose: 5,000 units Metoprolol Tartrate (Lopressor) 50 mg PO BID [facility] Last Admin: 04/21/17 17:17 Dose: 50 mg Rosuvastatin Calcium (Crestor) 5 mg PO HS [facility] Last Admin: 04/21/17 21:53 Dose: 5 mg - Labs Labs: 04/19/17 07:47 04/19/17 07:47 PT 12.3 SECONDS (9.7-12.2) H 04/18/17 16:24 INR 1.1 04/18/17 16:24 APTT 25 SECONDS (21-34) 04/18/17 16:24
[2017-04-22 00:44] VITALS: RESP 20
[2017-04-22 08:20] LABS: BASO # 0.1 K/uL (0.0-0.2); BASO % 0.8 % (0.0-2.0); EOS # 0.2 K/uL (0.0-0.7); EOS % 3.1 % (0.0-4.0); HEMOGLOBIN 13.1 g/dL (11.0-16.0); LYMPH # 1.8 K/uL (1.0-4.3); LYMPH % 25.3 % (20.0-40.0); MEAN CELL VOLUME 77.5 fL (81.0-99.0); MEAN CORPUSCULAR HEMOGLOBIN 25.6 pg (27.0-31.0); MEAN PLATELET VOLUME 8.5 fL (7.2-11.7); MONO # 0.7 K/uL (0.0-0.8); MONO % 9.9 % (0.0-10.0); NEUT # 4.3 K/uL (1.8-7.0); NEUT % 60.9 % (50.0-75.0); NRBC % 0.1 % (0.0-2.0); RBC 5.11 Mil/uL (3.80-5.20); RED CELL DISTRIBUTION WIDTH 20.9 % (11.5-14.5); WHITE BLOOD COUNT 7.1 K/uL (4.8-10.8)
[2017-04-22 08:38] LABS: BLOOD UREA NITROGEN 23 mg/dL (7-17); CALCIUM 7.6 mg/dl (8.6-10.4); GFR AFRICAN-AMERICAN > 60; GFR NON-AFRICAN AMERICAN > 60
--- NOTE | 2017-04-22 11:04 | PN ---
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 PHYSICAL EXAMINATION VITAL SIGNS: Blood pressure 146/89, mean arterial pressure of 108, respiratory rate 18, temperature 98.2, pulse rate 92. NEUROLOGIC: Patient is awake, alert, oriented to person and place. Left homonymous hemianopsia still persists. She moves all 4 extremities without any problem. Rest of the examination compared to my previous examination is unchanged. PLAN: Her plan of treatment is continue the current antiplatelet with blood pressure medication and statin. Two weeks from now, patient can be resumed lower dose of oral anticoagulant that has to be continued. In the meantime, fall precaution and gait training should be given. For memory, patient can be benefited on starting of acetylcholinesterase inhibitors such as donepezil, which can be started at lower dose and can be titrated slowly. Devendra Su MD
--- NOTE | 2017-04-22 15:51 | CP.PCM.PN ---
Subjective - Date & Time of Evaluation Date of Evaluation: 04/22/17 Time of Evaluation: 11:45 - Subjective Subjective: OPERATIONS INTELLIGENCE NOTES Patient seen today, oob sitting up in chair, awake, alert, oriented to person, NAD, denies any chest pain, sob,headache, abdominal pain, palpitations No overnigt events reported by RN VSS AND LABS - WNL Objective - Vital Signs/Intake and Output Vital Signs (last 24 hours): Temp Pulse Resp BP Pulse Ox 98.5 F 87 20 126/86 95 04/22/17 07:00 04/22/17 07:30 04/22/17 07:00 04/22/17 07:00 04/22/17 07:00 - Medications Medications: Current Medications Clopidogrel Bisulfate (Plavix) 75 mg PO DAILY [facility] Last Admin: 04/22/17 09:34 Dose: 75 mg Docusate Sodium (Colace) 100 mg PO BID [facility] Last Admin: 04/22/17 09:41 Dose: 100 mg Donepezil HCl (Aricept) 5 mg PO [facility] Ferrous Sulfate (Feosol) 325 mg PO DAILY [facility] Last Admin: 04/22/17 09:34 Dose: 325 mg Heparin Sodium (Porcine) (Heparin) 5,000 units SC Q8 [facility] Last Admin: 04/22/17 13:46 Dose: 5,000 units Metoprolol Tartrate (Lopressor) 50 mg PO BID [facility] Last Admin: 04/22/17 09:35 Dose: 50 mg Rosuvastatin Calcium (Crestor) 5 mg PO HS [facility] Last Admin: 04/21/17 21:53 Dose: 5 mg - Labs Labs: 04/22/17 08:11 04/22/17 08:11 PT 12.3 SECONDS (9.7-12.2) H 04/18/17 16:24 INR 1.1 04/18/17 16:24 APTT 25 SECONDS (21-34) 04/18/17 16:24 Assessment and Plan - Assessment and Plan (Free Text) Assessment: A/P 81 yr old female with pmhx HTN, osteoporosis, HLD, Afib , and dementia admitted with CVA CT repeat -Right occipital lobe appearance consistent with an acute subacute infarction- right posterior cerebral artery territory. No hemorrhage. No midline shift Patient accepted at acute rehab at [place] and daughter in agreement as per CM and SW D/w Dr. Georges stable for discharge to acute rehab from neurology standpoint and recommends to continue low dose anticoagulation 2 weeks from today if patient medically stable and strict fall precautions D/W Dr. Mccauley , stable for discharge to [facility] U/a done yesterday - + for UTI , will sent pt with cipro x 7 days for UTI ALL INFORMATION REGARDING TO RESTART LOW DOSE ANTICOAGULATION 2 WEEKS FROM TODAY SENT TO [facility] ( UPON PATIENT DISCHARGE BACK TO [facility] also informed above the same )
[2017-04-22 17:06] VITALS: BP 151/84; PULSE 84; TEMP 98.1; O2SAT 96
--- NOTE | 2017-06-28 12:46 | DS ---
CHIEF COMPLAINT: The patient is an 81-year-old female with history of hypertension, osteoporosis, hyperlipidemia, dementia,and atrial fibrillation; hospitalized on 04/18/2017 with acute changing in the visual status, and also somewhat confusion. COURSE IN THE HOSPITAL: The patient was sent from the [employer] [facility] [place] from with changing in the status of her vision since few hours prior to the presentation. In the emergency room, the patient was visualized, the patient was examined by the ED, code stroke was called and also noted to have some changes in the CAT scan and hospitalized. During the stay in the hospital, neurological evaluation was called. The patient also underwent multiple investigations. The patient underwent CAT scan of the head showing evidence of inferior right occipital lobe acute to subacute infarct involving the right posterior cerebral artery territory. The patient also had carotid Doppler which was showing normal carotid artery disease, no evidence of any acute pathology identified. The patient was also seen by director career and the Neurology evaluation was called and after discussion with the family members, it was decided to hold up the anticoagulation because of the high risk fall as well as recurrent GI bleed; but after 2 weeks, the patient will be re-evaluated for possibility of restarting or starting the low dose Eliquis 2.5 mg twice a day. The patient is clinically stable. [facility] and we will follow the patient once she gets discharged from the rehab. Jamilah Mccauley MD
== END 2017-04-22 18:10 | DRG 65 ==
LOC: C.ER 15:20 → C.9E 17:00 → C.6T 17:40
PROVIDERS: ADMIT Internal Medicine; ATTEND Internal Medicine
DX: I63.8 Other cerebral infarction (principal); N39.0 Urinary tract infection, site not specified; G62.9 Polyneuropathy, unspecified; I48.0 Paroxysmal atrial fibrillation; M31.6 Other giant cell arteritis; H53.462 Homonymous bilateral field defects, left side; G30.1 Alzheimer's disease with late onset; E78.5 Hyperlipidemia, unspecified; F02.80 Dementia in other diseases classified elsewhere, unspecified severity, without behavioral disturbance, psychotic disturbance, mood disturbance, and anxiety; M81.0 Age-related osteoporosis without current pathological fracture; I10 Essential (primary) hypertension; Z79.01 Long term (current) use of anticoagulants; Z87.891 Personal history of nicotine dependence; M19.90 Unspecified osteoarthritis, unspecified site; Z96.651 Presence of right artificial knee joint

== ENCOUNTER 2017-11-24 10:15 | Inpatient (IN) | payer MEDICARE, BC ==
[2017-11-24 10:15] VITALS: BMI 41.8
[2017-11-24] MEDS ORDERED: Iodixanol 320 MG/ML 100 ML BOTTLE IV ONE ×2 (10:31→11:44)
[2017-11-24 10:39] LABS: BASO % 0.4 % (0.0-2.0); EOS % 0.1 % (0.0-4.0); HEMOGLOBIN 15.6 g/dL (11.0-16.0); LYMPH # 0.6 K/uL (1.0-4.3); LYMPH % 7.6 % (20.0-40.0); MEAN CELL VOLUME 87.5 fL (81.0-99.0); MEAN CORPUSCULAR HEMOGLOBIN 29.9 pg (27.0-31.0); MEAN CORPUSCULAR HGB CONC 34.2 g/dL (33.0-37.0); MEAN PLATELET VOLUME 7.9 fL (7.2-11.7); MONO # 0.2 K/uL (0.0-0.8); MONO % 2.6 % (0.0-10.0); NEUT # 7.5 K/uL (1.8-7.0); NEUT % 89.3 % (50.0-75.0); PLATELET COUNT 162 K/uL (130-400); RBC 5.22 Mil/uL (3.80-5.20); RED CELL DISTRIBUTION WIDTH 14.5 % (11.5-14.5); WHITE BLOOD COUNT 8.4 K/uL (4.8-10.8)
[2017-11-24 10:47] LABS: INR 1.3; PROTHROMBIN TIME 14.7 SECONDS (9.7-12.2)
[2017-11-24 11:02] LABS: ALB/GLOB RATIO 1.2 (1.0-2.1); ALBUMIN 3.8 g/dL (3.5-5.0); ALT/SGPT 29 U/L (9-52); AST/SGOT 28 U/L (14-36); BLOOD UREA NITROGEN 19 mg/dL (7-17); GFR AFRICAN-AMERICAN > 60; GFR NON-AFRICAN AMERICAN > 60; HDL CHOLESTEROL 35 mg/dL (30-70)
[2017-11-24 11:08] LABS: BANDS 2 % (0-2); LYMPHOCYTE 9 % (20-40); MONOCYTE 3 % (0-10); NEUTROPHIL 86 % (50-75); OVALOCYTES SLIGHT; PLATELET ESTIMATE NORMAL (NORMAL); TOTAL CELLS COUNTED 100
--- NOTE | 2017-11-24 11:09 | CT ---
Date of service: 11/24/2017 PROCEDURE: CT HEAD WITHOUT CONTRAST. HISTORY: Code Stroke COMPARISON: 04/19/2017 TECHNIQUE: Axial computed tomography images were obtained through the head/brain without intravenous contrast. Radiation dose: Total exam DLP = 921.79 mGy-cm. This CT exam was performed using one or more of the following dose reduction techniques: Automated exposure control, adjustment of the mA and/or kV according to patient size, and/or use of iterative reconstruction technique. FINDINGS: HEMORRHAGE: Acute intracranial hemorrhage in the deep right cerebellar hemispheric white matter. Mild mass effect upon the 4th ventricle. No acute hemorrhage elsewhere. . BRAIN: No intracranial mass. Extensive right occipital encephalomalacia and mild old right frontal encephalomalacia consistent with prior infarcts. No evidence of acute infarct elsewhere. Moderate patchy and confluent periventricular and deep/subcortical white matter lucency consistent with microvascular white matter ischemic change. Bold left caudate nucleus head lacunar infarct. Old right lentiform nucleus lacunar infarct. Old right and left thalamic lacunar infarcts. VENTRICLES: Unremarkable. No hydrocephalus. CALVARIUM: Unremarkable. PARANASAL SINUSES: Minimal nonspecific dependent fluid in the sphenoid sinus. MASTOID AIR CELLS: Unremarkable as visualized. No inflammatory changes. OTHER FINDINGS: None. IMPRESSION: Acute right cerebellar hemispheric hemorrhage. Old right frontal and right occipital infarcts with resulting encephalomalacia. Moderate chronic white matter ischemic change. Old bilateral basal ganglia and thalamic lacunar infarcts. These findings were discussed by telephone with Dr. Cedeno 10:48 a.m. on 11/24/2017.
[2017-11-24 11:13] LABS: LDL CHOLESTEROL 67 mg/dL (0-129)
[2017-11-24] MEDS ORDERED: Sodium Chloride 0.9% 1,000 ML IV ONE (11:19)
[2017-11-24] MEDS ORDERED: Sodium Chloride 0.9% 1,000 ML ONE (11:22)
--- NOTE | 2017-11-24 11:46 | C.PDOC ---
History Of Present Illness 81 y/o female, BIB EMS from residential for evaluation. As per EMS, the staff in the residential noted that the patient was last seen normal at 745 am. The staff noted slurred speech and left sided extremity weakness. The patient has a history of CVA with unknown deficit. She offers no medical complaints in the ED. Time Seen by Provider: 11/24/17 10:21 Chief Complaint (Nursing): Weakness/Neurological Deficit History Per: Patient (poor historian), EMS Onset/Duration Of Symptoms: Hrs Current Symptoms Are (Timing): Still Present Fall Associated With With Symptoms: No Recent travel outside of the [place]: No Additional History Per: EMS Past Medical History Reviewed: Historical Data, Nursing Documentation, Vital Signs Vital Signs: Last Vital Signs Temp 97.7 F 11/24/17 16:00 Pulse 78 11/24/17 18:30 Resp 19 11/24/17 18:30 BP 136/94 H 11/24/17 18:30 Pulse Ox 96 11/24/17 18:30 - Medical History PMH: Anemia, Arthritis, Atrial Fibrillation, Cardia Arrhythmia (A FIB), Colonic Polyps, Dementia, HTN, Hypercholesterolemia, Hyperlipidemia, Osteoporosis Denies: Fractures, HIV, Chronic Kidney Disease Surgical History: Endoscopy - [facility] Procedures DRESSING TECHNIQUES TREATMENT USING ASSIST EQUIPMENT (04/22/17) EXCISION OF SIGMOID COLON, ENDO, DIAGN (11/16/16) EXERCISE TRMT MUSCULOSK LOW BACK/LE W ASSIST EQUIP (04/22/17) GAIT TRAINING/AMBULAT TREATMENT USING ASSIST EQUIPMENT (04/22/17) Family History: States: Unknown Family Hx - Social History Hx Alcohol Use: No Hx Substance Use: No - Immunization History Hx Tetanus Toxoid Vaccination: No Hx Influenza Vaccination: Yes Hx Pneumococcal Vaccination: No Review Of Systems Except As Marked, All Systems Reviewed And Found Negative. Constitutional: Negative for: Fever Neurological: Positive for: Weakness (left sided upper and lower extremity weakness), Change in Speech (slurred speech ) Physical Exam - Physical Exam Appears: Well, Non-toxic, No Acute Distress Skin: Normal Color, Warm, Dry Head: Atraumatic, Normacephalic Eye(s): bilateral: Normal Inspection, PERRL, EOMI Ear(s): Bilateral: Normal Nose: Normal Oral Mucosa: Moist Neck: Normal ROM Chest: Symmetrical Cardiovascular: Rhythm Irregular Respiratory: Normal Breath Sounds, No Rales, No Rhonchi, No Wheezing Gastrointestinal/Abdominal: Normal Exam, Bowel Sounds, Soft Extremity: Other (Patient was non-cooperative with exam.) Extremity: Left: Other (upper and lower extremity weakness noted) Pulses: Right Dorsalis Pedis: Normal Neurological/Psych: Oriented x3, No Normal Speech, Inappropriate Response To Command (uncooperative with exam) ED Course And Treatment - Laboratory Results Result Diagrams: 11/24/17 10:34 11/24/17 10:34 ECG: Interpreted By Me, Viewed By Me Interpretation Of ECG: A-Fib 94 bpm O2 Sat by Pulse Oximetry: 98 (RA) Pulse Ox Interpretation: Normal - Other Rad Chest X-Ray: Viewed By Me, Read By Radiologist Interpretation: FINDINGS: LUNGS: No active pulmonary disease. PLEURA: No significant pleural effusion identified, no pneumothorax apparent. CARDIOVASCULAR: Normal. OSSEOUS STRUCTURES: No significant abnormalities. VISUALIZED UPPER ABDOMEN: Normal. OTHER FINDINGS: None. IMPRESSION: No active disease. - CT Scan/US Head/ Neck Other Rad Studies (CT/US): Read By Radiologist, Radiology Report Reviewed CT/US Interpretation: FINDINGS: HEAD: The intracranial arteries are large and tortuous likely related to underlying hypertension. There are mild atherosclerotic calcifications in the cavernous carotid arteries. Right: The intracranial internal carotid artery, and anterior and middle cerebral arteries are widely patent. Left: The intracranial internal carotid artery, and anterior and middle cerebral arteries are widely patent. 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 The visualized intracranial vertebral arteries, basilar artery and posterior cerebral arteries are widely patent. There is no endoluminal filling defect to suggest thrombus. There is no intracranial saccular aneurysm. NECK: There is a three vessel aortic arch. There is no stenosis at the origins of the great vessels at the level of the aortic arch. The carotid and vertebral arteries are large in tortuous likely related to underlying hypertension. There are mildly calcifications in the carotid bulbs. Right Carotid: On the right, the common carotid, internal carotid and external carotid arteries are widely patent. There is no hemodynamically significant stenosis in the internal carotid artery by NASCET criteria. Left Carotid: On the left, the common carotid, internal carotid and external carotid arteries are widely patent.There is no hemodynamically significant stenosis in the internal carotid arteries. There is no hemodynamically significant stenosis in the internal carotid artery by NASCET criteria. The vertebral arteries are widely patent. The visualized soft tissues of the neck are normal. The visualized brain and cervical spine are within normal limits. The lung apices are clear. IMPRESSION: 1. No evidence of endoluminal thrombus,occlusion or definite significant stenosis in the intracranial arteries. 2. No evidence of hemodynamically significant stenosis in the internal carotid arteries. 3. Dolichoectasia of the vertebrobasilar system. Patent bilateral vertebral arteries. Head Other Rad Studies (CT/US): Read By Radiologist, Radiology Report Reviewed CT/US Interpretation: FINDINGS: HEMORRHAGE: Acute intracranial hemorrhage in the deep right cerebellar hemispheric white matter. Mild mass effect upon the 4th ventricle. No acute hemorrhage elsewhere. . BRAIN: No intracranial mass. Extensive right occipital encephalomalacia and mild old right frontal encephalomalacia consistent with prior infarcts. No evidence of acute infarct elsewhere. Moderate patchy and confluent periventricular and deep/subcortical white matter lucency consistent with microvascular white matter ischemic change. Bold left caudate nucleus head lacunar infarct. Old right lentiform nucleus lacunar infarct. Old right and left thalamic lacunar infarcts. VENTRICLES: Unremarkable. No hydrocephalus. CALVARIUM: Unremarkable. PARANASAL SINUSES: Minimal nonspecific dependent fluid in the sphenoid sinus. MASTOID AIR CELLS: Unremarkable as visualized. No inflammatory changes. OTHER FINDINGS: None. IMPRESSION: Acute right cerebellar hemispheric hemorrhage. Old right frontal and right occipital infarcts with resulting encephalomalacia. Moderate chronic white matter ischemic change. Old bilateral basal ganglia and thalamic lacunar infarcts. These findings were discussed by telephone with Dr. Angeles at 10:48 a.m. on 11/24/2017. NIHSS Stroke Scale 2 - Date/Time Evaluation Performed Date Performed: 11/24/17 Time Performed: 10:16 When Was NIHSS Performed: Baseline - How Severe is the Stroke Level of Consciousness: 1=Drowsy LOC to Questions: 0=Both comments correct LOC to commands: 0=Obeys both correctly Best Gaze: 1=Partial gaze palsy Visual: 0=No visual loss Facial: 1=Minor asymmetry Motor Arm - Left: 2=Falls before 10 sec Motor Arm - Right: 0=No drift Motor Leg - Left: 2=Falls before 5 sec Motor Leg - Right: 0=No drift Limb Ataxia: 0=Absent Sensory: 0=Normal Best Language: 1=Mild to moderate aphasia Dysarthia: 1=Mild to moderate slurring Extinction & Inattention (Neglect): 0=Normal, no object Score: 9 Severity Of Stroke: 5-15 = Moderate Stroke rTPA Inclusion/Exclusion - Refusal of Treatment Patient Refused Treatment: No - Inclusion Criteria for Altepase Patient is 18 years or Older: Yes The Clinical Diagnosis of Ischemic Stroke That is Causing a Potentially Disabling Neurological Deficit: No Time of Onset is Well Established to be Less Than 270 Minute Before Treatment Would Begin: Yes Risk/Benefit Discussed With Patient/Family Member Present: No - Exclusion Criteria for Altepase Evidence of an Intracranial Hemorrhage: Yes Medical Decision Making Medical Decision Making: Impression: 81 y/o female with left sided extremity weakness Plan: --Blood type and screen --CTA Head and Neck --EKG --CMP --Hemoglobin --Lipid Panel --Troponin I --PT --CBC --PTT --Chest X-Ray --IV Fluids 1016- spoke with dr mackenzie and reviewed case. Reccomended CT angio Dr. Doll called @ [address] Obregon notified no itervention at this time Spoke with Dr. Jara who agreed and advies with pt admission to ICU ( critical care time 2 hrs) Disposition - Disposition Disposition: HOSPITALIZED Disposition Time: 11:50 Condition: SERIOUS - Clinical Impression Clinical Impression: Cerebellar hemorrhage, acute - PA / SERVICE NOW DEVELOPER / Resident Statement MD/DO has reviewed & agrees with the documentation as recorded. - Scribe Statement The provider has reviewed the documentation as recorded by the Scribe (Afua Yee) Provider Attestation: All medical record entries made by the Scribe were at my direction and personally dictated by me. I have reviewed the chart and agree that the record accurately reflects my personal performance of the history, physical exam, medical decision making, and the department course for this patient. I have also personally directed, reviewed, and agree with the discharge instructions and disposition.
--- NOTE | 2017-11-24 11:57 | CP.PCM.CON ---
<Vicki Sloan - Last Filed: 11/24/17 12:54> History of Present Illness - History of Present Illness History of Present Illness: Neurology Consult Note for Dr. Ko This patient is an 81 year old female with a PMHx of prior CVA, A-fib (On Eliquis), HTN, HLD, Dementia, and osteoporosis who presents from longterm. Per ED nursing staff, patient was found leaned over with a slurred speech at 7: 45 this morning. Code Stroke was called due to slurred speech and Neurology was consulted. CT scan on admission showed Acute Right Hemispheric Cerebellar hemorrage. On examination in the E.R. Patient offers no complaints and states that she is "OK". She denies any headache, vision changes, lethargy, focal muscle weakness or sensory loss. Patient was unaware that she was in the hospital or why she came to begin with. She was unable to verbalize the date. Of note, patient may be a poor historian due to history of dementia PMHx: As stated Above PSHx: Denies Allergies: Denied SocialHx: Denies tobacco, EtoH, illicit drug use. Hos: 2017. Please see chart FamHx: Non-Cont. Meds: MAR Reviewed. On Eliquis 5mg PO BID. Past Patient History - Tetanus Immunizations Tetanus Immunization: Unknown - Past Medical History & Family History Past Medical History?: Yes - Past Social History Smoking Status: Former Smoker - CARDIAC Hx Atrial Fibrillation: Yes Hx Cardia Arrhythmia: Yes (A FIB) Hx Hypercholesterolemia: Yes Hx Hypertension: Yes - PULMONARY Hx Respiratory Disorders: No - NEUROLOGICAL Hx Dementia: Yes - HEENT Hx HEENT Problems: Yes - RENAL Hx Chronic Kidney Disease: No - ENDOCRINE/METABOLIC Hx Endocrine Disorders: No - HEMATOLOGICAL/ONCOLOGICAL Hx Anemia: Yes Hx Human Immunodeficiency Virus (HIV): No - INTEGUMENTARY Hx Dermatological Problems: No - MUSCULOSKELETAL/RHEUMATOLOGICAL Hx Arthritis: Yes Hx Fractures: No Hx Osteoporosis: Yes - GASTROINTESTINAL Hx Gastrointestinal Disorders: Yes Other/Comment: GI bleed. - GENITOURINARY/GYNECOLOGICAL Hx Genitourinary Disorders: No - PSYCHIATRIC Hx Substance Use: No - SURGICAL HISTORY Hx Surgeries: Yes Hx Joint Replacement: Yes (right knee) - ANESTHESIA Hx Anesthesia Reactions: No Meds Allergies/Adverse Reactions: Allergies Allergy/AdvReac Type Severity Reaction Status Date / Time No Known Allergies Allergy Verified 04/22/17 19:41 - Medications Medications: Current Medications Sodium Chloride (Sodium Chloride 0.9%) 1,000 mls @ 250 mls/hr IV .Q4H ONE Stop: 11/24/17 15:18 Last Admin: 11/24/17 11:21 Dose: 250 mls/hr Physical Exam - Constitutional Appears: Chronically Ill - Head Exam Head Exam: ATRAUMATIC, NORMAL INSPECTION, NORMOCEPHALIC - Eye Exam Eye Exam: EOMI, Normal appearance, PERRL - ENT Exam ENT Exam: Mucous Membranes Moist - Neck Exam Neck exam: Positive for: Normal Inspection - Respiratory Exam Respiratory Exam: NORMAL BREATHING PATTERN. absent: Accessory Muscle Use - Cardiovascular Exam Cardiovascular Exam: Irregular Rhythm, +S1, +S2 - GI/Abdominal Exam GI & Abdominal Exam: Soft. absent: Tenderness - Extremities Exam Extremities exam: Negative for: pedal edema - Neurological Exam Neurological exam: Alert, Altered, CN II-XII Intact Additional comments: No Motor or Sensory Deficit AAO x 1. Patient is disoriented to place and time. Negative Babinski. Poor effort on pronator drift and finger to nose exam. 5/5 Muscle Strength in Upper/Lower Ext. - Psychiatric Exam Psychiatric exam: Flat Affect Results - Vital Signs Recent Vital Signs: Last Vital Signs Temp 97.9 F 11/24/17 10:15 Pulse 90 11/24/17 11:31 Resp 20 11/24/17 11:31 BP 142/82 11/24/17 11:31 Pulse Ox 98 11/24/17 11:45 - Labs Result Diagrams: 11/24/17 10:34 11/24/17 10:34 Labs: Laboratory Results - last 24 hr 11/24/17 11/24/17 11/24/17 10:18 10:34 10:34 WBC 8.4 RBC 5.22 H Hgb 15.6 D Hct 45.7 MCV 87.5 D MCH 29.9 MCHC 34.2 RDW 14.5 Plt Count 162 MPV 7.9 Neut % (Auto) 89.3 H Lymph % (Auto) 7.6 L [place] % (Auto) 2.6 Eos % (Auto) 0.1 Baso % (Auto) 0.4 Neut # (Auto) 7.5 H Lymph # (Auto) 0.6 L [place] # (Auto) 0.2 Eos # (Auto) 0.0 Baso # (Auto) 0.0 Neutrophils % (Manual) 86 H Band Neutrophils % 2 Lymphocytes % (Manual) 9 L Monocytes % (Manual) 3 Platelet Estimate Normal Ovalocytes Slight PT 14.7 H INR 1.3 APTT 32 Sodium Potassium Chloride Carbon Dioxide Anion Gap BUN Creatinine Est GFR ( Amer) Est GFR (Non-Af Amer) POC Glucose (mg/dL) 141 H Random Glucose Hemoglobin A1c Calcium Total Bilirubin AST ALT Alkaline Phosphatase Troponin I Total Protein Albumin Globulin Albumin/Globulin Ratio Triglycerides Cholesterol LDL Cholesterol Direct HDL Cholesterol Blood Type Antibody Screen 11/24/17 11/24/17 11/24/17 10:34 10:40 10:41 WBC RBC Hgb Hct MCV MCH MCHC RDW Plt Count MPV Neut % (Auto) Lymph % (Auto) [place] % (Auto) Eos % (Auto) Baso % (Auto) Neut # (Auto) Lymph # (Auto) [place] # (Auto) Eos # (Auto) Baso # (Auto) Neutrophils % (Manual) Band Neutrophils % Lymphocytes % (Manual) Monocytes % (Manual) Platelet Estimate Ovalocytes PT INR APTT Sodium 141 Potassium 4.3 Chloride 102 Carbon Dioxide 28 Anion Gap 16 BUN 19 H Creatinine 0.8 Est GFR ( Amer) > 60 Est GFR (Non-Af Amer) > 60 POC Glucose (mg/dL) Random Glucose 156 H Hemoglobin A1c 5.6 Calcium 9.0 Total Bilirubin 2.2 H AST 28 ALT 29 Alkaline Phosphatase 124 Troponin I < 0.0120 Total Protein 7.1 Albumin 3.8 Globulin 3.2 Albumin/Globulin Ratio 1.2 Triglycerides 56 D Cholesterol 126 LDL Cholesterol Direct 67 HDL Cholesterol 35 Blood Type AB POSITIVE Antibody Screen Negative Assessment & Plan - Assessment and Plan (Free Text) Assessment: 81 year old female with a PMHx of prior CVA, A-fib (On Eliquis), HTN, HLD, Dementia, and osteoporosis who presents from longterm. Per ED nursing staff , patient was found leaned over with a slurred speech at 7:45 this morning. Code Stroke was called due to slurred speech and Neurology was consulted. CT scan on admission showed Acute Right Hemispheric Cerebellar hemorrhage. Plan: Cerebellar Hemmorhage (Acute) CT Head w/o Contrast (Admission): Acute right cerebellar hemispheric hemorrhage. Old right frontal and right occipital infarcts with resulting encephalomalacia. Moderate chronic white matter ischemic change. Old bilateral basal ganglia and thalamic lacunar infarcts. CTA Head/Neck (Admission) 1. No evidence of endoluminal thrombus,occlusion or definite significant stenosis in the intracranial arteries. 2. No evidence of hemodynamically significant stenosis in the internal carotid arteries. 3. Dolichoectasia of the vertebrobasilar system. Patent bilateral vertebral arteries. -Hold Anticoagulation (Elequis) -Head of the bead elevated to 40 degrees -Blood Pressure Control -Neurosurgery Consulted (Dr. Gaona) -MRI Head w/o contrast in the AM . -Seizure precautions -Will discuss with Dr. Ko, all management per her. Vicki Sloan, PGY-2 <Nicolette Ko - Last Filed: 11/24/17 14:25> Meds - Medications Medications: Current Medications Sodium Chloride (Sodium Chloride 0.9%) 1,000 mls @ 75 mls/hr IV .[id number] KARO Nicardipine HCl 25 mg/ Sodium (Chloride) 250 mls @ 50 mls/hr IV .Q5H KARO; 5 MG/ HR PRN Reason: Protocol Pantoprazole Sodium (Protonix Inj) 40 mg IVP DAILY KARO Results - Vital Signs Recent Vital Signs: Last Vital Signs Temp 97.9 F 11/24/17 10:15 Pulse 81 11/24/17 13:11 Resp 20 11/24/17 13:11 BP 136/73 11/24/17 13:11 Pulse Ox 98 11/24/17 13:11 - Labs Result Diagrams: 11/24/17 10:34 11/24/17 10:34 Labs: Laboratory Results - last 24 hr 11/24/17 11/24/17 11/24/17 10:18 10:34 10:34 WBC 8.4 RBC 5.22 H Hgb 15.6 D Hct 45.7 MCV 87.5 D MCH 29.9 MCHC 34.2 RDW 14.5 Plt Count 162 MPV 7.9 Neut % (Auto) 89.3 H Lymph % (Auto) 7.6 L [place] % (Auto) 2.6 Eos % (Auto) 0.1 Baso % (Auto) 0.4 Neut # (Auto) 7.5 H Lymph # (Auto) 0.6 L [place] # (Auto) 0.2 Eos # (Auto) 0.0 Baso # (Auto) 0.0 Neutrophils % (Manual) 86 H Band Neutrophils % 2 Lymphocytes % (Manual) 9 L Monocytes % (Manual) 3 Platelet Estimate Normal Ovalocytes Slight PT 14.7 H INR 1.3 APTT 32 Sodium Potassium Chloride Carbon Dioxide Anion Gap BUN Creatinine Est GFR ( Amer) Est GFR (Non-Af Amer) POC Glucose (mg/dL) 141 H Random Glucose Hemoglobin A1c Calcium Total Bilirubin AST ALT Alkaline Phosphatase Troponin I Total Protein Albumin Globulin Albumin/Globulin Ratio Triglycerides Cholesterol LDL Cholesterol Direct HDL Cholesterol Blood Type Antibody Screen 11/24/17 11/24/17 11/24/17 10:34 10:40 10:41 WBC RBC Hgb Hct MCV MCH MCHC RDW Plt Count MPV Neut % (Auto) Lymph % (Auto) [place] % (Auto) Eos % (Auto) Baso % (Auto) Neut # (Auto) Lymph # (Auto) [place] # (Auto) Eos # (Auto) Baso # (Auto) Neutrophils % (Manual) Band Neutrophils % Lymphocytes % (Manual) Monocytes % (Manual) Platelet Estimate Ovalocytes PT INR APTT Sodium 141 Potassium 4.3 Chloride 102 Carbon Dioxide 28 Anion Gap 16 BUN 19 H Creatinine 0.8 Est GFR ( Amer) > 60 Est GFR (Non-Af Amer) > 60 POC Glucose (mg/dL) Random Glucose 156 H Hemoglobin A1c 5.6 Calcium 9.0 Total Bilirubin 2.2 H AST 28 ALT 29 Alkaline Phosphatase 124 Troponin I < 0.0120 Total Protein 7.1 Albumin 3.8 Globulin 3.2 Albumin/Globulin Ratio 1.2 Triglycerides 56 D Cholesterol 126 LDL Cholesterol Direct 67 HDL Cholesterol 35 Blood Type AB POSITIVE Antibody Screen Negative Assessment & Plan - Assessment and Plan (Free Text) Assessment: neurology attending addendum: agree with residents exam and note. Patient may have had intracerebral bleed secondary to eloquiss, and hypertension. plan as above. Dr. Ko
--- NOTE | 2017-11-24 12:08 | RAD ---
Date of service: 11/24/2017 HISTORY: Code Stroke COMPARISON: 04/18/2017 FINDINGS: LUNGS: No active pulmonary disease. PLEURA: No significant pleural effusion identified, no pneumothorax apparent. CARDIOVASCULAR: Normal. OSSEOUS STRUCTURES: No significant abnormalities. VISUALIZED UPPER ABDOMEN: Normal. OTHER FINDINGS: None. IMPRESSION: No active disease.
--- NOTE | 2017-11-24 12:19 | CP.PCM.PN ---
Subjective - Date & Time of Evaluation Date of Evaluation: 11/24/17 Time of Evaluation: 12:17 - Subjective Subjective: called about this woman who has acute right cerebellar hemmorhage PMH significant for old right hemisphereCVA both frontal and parieto-occipital , anemia, Arthritis, Atrial Fibrillation, Cardia Arrhythmia (A FIB), Colonic Polyps, Dementia, HTN, Hypercholesterolemia, Hyperlipidemia, Osteoporosis Cerebellar hematoma is small and 4th vent is widly patent No intervention at this time but f/u MRI in am appropriate. Objective - Vital Signs/Intake and Output Vital Signs (last 24 hours): Temp Pulse Resp BP Pulse Ox 97.9 F 90 20 142/82 98 11/24/17 10:15 11/24/17 11:31 11/24/17 11:31 11/24/17 11:31 11/24/17 11:45 - Medications Medications: Current Medications Sodium Chloride (Sodium Chloride 0.9%) 1,000 mls @ 250 mls/hr IV .Q4H ONE Stop: 11/24/17 15:18 Last Admin: 11/24/17 11:21 Dose: 250 mls/hr - Labs Labs: 11/24/17 10:34 11/24/17 10:34 PT 14.7 SECONDS (9.7-12.2) H 11/24/17 10:34 INR 1.3 11/24/17 10:34 APTT 32 SECONDS (21-34) 11/24/17 10:34
--- NOTE | 2017-11-24 12:41 | CT ---
PROCEDURE: CTA HEAD AND NECK WITH CONTRAST HISTORY: CODE STROKE COMPARISON: None available. TECHNIQUE: Initial noncontrast head CT was performed. Subsequently, CT angiogram of the head and neck were performed after the intravenous administration of 80 mL of Omnipaque 350. Contiguous 1.5mm thick images were obtained in the axial plane of the neck. 2-D coronal and sagittal MPR images were obtained. Imaging postprocessing was performed with 3-D images also obtained. A delayed contrast head CT was also obtained. This CT exam was performed using one or more of the following dose reduction techniques: Automated exposure control, adjustment of the mA and/or kV according to patient size, and/or use of iterative reconstruction technique. Contrast dose: 563.31 Radiation dose: Total exam DLP = 100 mL Visipaque mGy-cm. FINDINGS: HEAD: The intracranial arteries are large and tortuous likely related to underlying hypertension. There are mild atherosclerotic calcifications in the cavernous carotid arteries. Right: The intracranial internal carotid artery, and anterior and middle cerebral arteries are widely patent. Left: The intracranial internal carotid artery, and anterior and middle cerebral arteries are widely patent. Posterior circulation: There is dolichoectasia of the basilar and vertebral arteries. The visualized intracranial vertebral arteries, basilar artery and posterior cerebral arteries are widely patent. There is no endoluminal filling defect to suggest thrombus. There is no intracranial saccular aneurysm. NECK: There is a three vessel aortic arch. There is no stenosis at the origins of the great vessels at the level of the aortic arch. The carotid and vertebral arteries are large in tortuous likely related to underlying hypertension. There are mildly calcifications in the carotid bulbs. Right Carotid: On the right, the common carotid, internal carotid and external carotid arteries are widely patent. There is no hemodynamically significant stenosis in the internal carotid artery by NASCET criteria. Left Carotid: On the left, the common carotid, internal carotid and external carotid arteries are widely patent.There is no hemodynamically significant stenosis in the internal carotid arteries. There is no hemodynamically significant stenosis in the internal carotid artery by NASCET criteria. The vertebral arteries are widely patent. The visualized soft tissues of the neck are normal. The visualized brain and cervical spine are within normal limits. The lung apices are clear. IMPRESSION: 1. No evidence of endoluminal thrombus,occlusion or definite significant stenosis in the intracranial arteries. 2. No evidence of hemodynamically significant stenosis in the internal carotid arteries. 3. Dolichoectasia of the vertebrobasilar system. Patent bilateral vertebral arteries.
--- NOTE | 2017-11-24 12:49 | CP.PCM.CON ---
History of Present Illness - History of Present Illness History of Present Illness: 81 yr old woman who came in with altered mental status, s Past Patient History - Tetanus Immunizations Tetanus Immunization: Unknown - Past Medical History & Family History Past Medical History?: Yes - Past Social History Smoking Status: Former Smoker - CARDIAC Hx Atrial Fibrillation: Yes Hx Cardia Arrhythmia: Yes (A FIB) Hx Hypercholesterolemia: Yes Hx Hypertension: Yes - PULMONARY Hx Respiratory Disorders: No - NEUROLOGICAL Hx Dementia: Yes - HEENT Hx HEENT Problems: Yes - RENAL Hx Chronic Kidney Disease: No - ENDOCRINE/METABOLIC Hx Endocrine Disorders: No - HEMATOLOGICAL/ONCOLOGICAL Hx Anemia: Yes Hx Human Immunodeficiency Virus (HIV): No - INTEGUMENTARY Hx Dermatological Problems: No - MUSCULOSKELETAL/RHEUMATOLOGICAL Hx Arthritis: Yes Hx Fractures: No Hx Osteoporosis: Yes - GASTROINTESTINAL Hx Gastrointestinal Disorders: Yes Other/Comment: GI bleed. - GENITOURINARY/GYNECOLOGICAL Hx Genitourinary Disorders: No - PSYCHIATRIC Hx Substance Use: No - SURGICAL HISTORY Hx Surgeries: Yes Hx Joint Replacement: Yes (right knee) - ANESTHESIA Hx Anesthesia Reactions: No Meds Allergies/Adverse Reactions: Allergies Allergy/AdvReac Type Severity Reaction Status Date / Time No Known Allergies Allergy Verified 04/22/17 19:41 - Medications Medications: Current Medications Sodium Chloride (Sodium Chloride 0.9%) 1,000 mls @ 250 mls/hr IV .Q4H ONE Stop: 11/24/17 15:18 Last Admin: 11/24/17 11:21 Dose: 250 mls/hr Results - Vital Signs Recent Vital Signs: Last Vital Signs Temp 97.9 F 11/24/17 10:15 Pulse 92 H 11/24/17 12:41 Resp 19 11/24/17 12:41 BP 155/85 H 11/24/17 12:41 Pulse Ox 97 11/24/17 12:41 - Labs Result Diagrams: 11/24/17 10:34 11/24/17 10:34 Labs: Laboratory Results - last 24 hr 11/24/17 11/24/17 11/24/17 10:18 10:34 10:34 WBC 8.4 RBC 5.22 H Hgb 15.6 D Hct 45.7 MCV 87.5 D MCH 29.9 MCHC 34.2 RDW 14.5 Plt Count 162 MPV 7.9 Neut % (Auto) 89.3 H Lymph % (Auto) 7.6 L [place] % (Auto) 2.6 Eos % (Auto) 0.1 Baso % (Auto) 0.4 Neut # (Auto) 7.5 H Lymph # (Auto) 0.6 L [place] # (Auto) 0.2 Eos # (Auto) 0.0 Baso # (Auto) 0.0 Neutrophils % (Manual) 86 H Band Neutrophils % 2 Lymphocytes % (Manual) 9 L Monocytes % (Manual) 3 Platelet Estimate Normal Ovalocytes Slight PT 14.7 H INR 1.3 APTT 32 Sodium Potassium Chloride Carbon Dioxide Anion Gap BUN Creatinine Est GFR ( Amer) Est GFR (Non-Af Amer) POC Glucose (mg/dL) 141 H Random Glucose Hemoglobin A1c Calcium Total Bilirubin AST ALT Alkaline Phosphatase Troponin I Total Protein Albumin Globulin Albumin/Globulin Ratio Triglycerides Cholesterol LDL Cholesterol Direct HDL Cholesterol Blood Type Antibody Screen 11/24/17 11/24/17 11/24/17 10:34 10:40 10:41 WBC RBC Hgb Hct MCV MCH MCHC RDW Plt Count MPV Neut % (Auto) Lymph % (Auto) [place] % (Auto) Eos % (Auto) Baso % (Auto) Neut # (Auto) Lymph # (Auto) [place] # (Auto) Eos # (Auto) Baso # (Auto) Neutrophils % (Manual) Band Neutrophils % Lymphocytes % (Manual) Monocytes % (Manual) Platelet Estimate Ovalocytes PT INR APTT Sodium 141 Potassium 4.3 Chloride 102 Carbon Dioxide 28 Anion Gap 16 BUN 19 H Creatinine 0.8 Est GFR ( Amer) > 60 Est GFR (Non-Af Amer) > 60 POC Glucose (mg/dL) Random Glucose 156 H Hemoglobin A1c 5.6 Calcium 9.0 Total Bilirubin 2.2 H AST 28 ALT 29 Alkaline Phosphatase 124 Troponin I < 0.0120 Total Protein 7.1 Albumin 3.8 Globulin 3.2 Albumin/Globulin Ratio 1.2 Triglycerides 56 D Cholesterol 126 LDL Cholesterol Direct 67 HDL Cholesterol 35 Blood Type AB POSITIVE Antibody Screen Negative
[2017-11-24] MEDS ORDERED: niCARdipine IV 25 MG in Sodium Chloride 0.9% 240 ML IV SCH (14:15)
--- NOTE | 2017-11-24 14:42 | CP.PCM.CON ---
<Karlos Kwon - Last Filed: 11/24/17 18:24> Meds Allergies/Adverse Reactions: Allergies Allergy/AdvReac Type Severity Reaction Status Date / Time No Known Allergies Allergy Verified 04/22/17 19:41 - Medications Medications: Current Medications Sodium Chloride (Sodium Chloride 0.9%) 1,000 mls @ 75 mls/hr IV .[id number] KARO Last Admin: 11/24/17 14:43 Dose: 75 mls/hr Nicardipine HCl 25 mg/ Sodium (Chloride) 250 mls @ 50 mls/hr IV .Q5H KARO; 5 MG/ HR PRN Reason: Protocol Last Admin: 11/24/17 16:09 Dose: 5 mg/hr, 50 mls/hr Pantoprazole Sodium (Protonix Inj) 40 mg IVP DAILY KARO Results - Vital Signs Recent Vital Signs: Last Vital Signs Temp 97.7 F 11/24/17 16:00 Pulse 79 11/24/17 16:50 Resp 24 11/24/17 16:50 BP 128/82 11/24/17 16:45 Pulse Ox 95 11/24/17 16:45 - Labs Result Diagrams: 11/24/17 10:34 11/24/17 10:34 Labs: Laboratory Results - last 24 hr 11/24/17 11/24/17 11/24/17 10:18 10:34 10:34 WBC 8.4 RBC 5.22 H Hgb 15.6 D Hct 45.7 MCV 87.5 D MCH 29.9 MCHC 34.2 RDW 14.5 Plt Count 162 MPV 7.9 Neut % (Auto) 89.3 H Lymph % (Auto) 7.6 L [place] % (Auto) 2.6 Eos % (Auto) 0.1 Baso % (Auto) 0.4 Neut # (Auto) 7.5 H Lymph # (Auto) 0.6 L [place] # (Auto) 0.2 Eos # (Auto) 0.0 Baso # (Auto) 0.0 Neutrophils % (Manual) 86 H Band Neutrophils % 2 Lymphocytes % (Manual) 9 L Monocytes % (Manual) 3 Platelet Estimate Normal Ovalocytes Slight PT 14.7 H INR 1.3 APTT 32 Sodium Potassium Chloride Carbon Dioxide Anion Gap BUN Creatinine Est GFR ( Amer) Est GFR (Non-Af Amer) POC Glucose (mg/dL) 141 H Random Glucose Hemoglobin A1c Calcium Total Bilirubin AST ALT Alkaline Phosphatase Troponin I Total Protein Albumin Globulin Albumin/Globulin Ratio Triglycerides Cholesterol LDL Cholesterol Direct HDL Cholesterol Blood Type Antibody Screen 11/24/17 11/24/17 11/24/17 10:34 10:40 10:41 WBC RBC Hgb Hct MCV MCH MCHC RDW Plt Count MPV Neut % (Auto) Lymph % (Auto) [place] % (Auto) Eos % (Auto) Baso % (Auto) Neut # (Auto) Lymph # (Auto) [place] # (Auto) Eos # (Auto) Baso # (Auto) Neutrophils % (Manual) Band Neutrophils % Lymphocytes % (Manual) Monocytes % (Manual) Platelet Estimate Ovalocytes PT INR APTT Sodium 141 Potassium 4.3 Chloride 102 Carbon Dioxide 28 Anion Gap 16 BUN 19 H Creatinine 0.8 Est GFR ( Amer) > 60 Est GFR (Non-Af Amer) > 60 POC Glucose (mg/dL) Random Glucose 156 H Hemoglobin A1c 5.6 Calcium 9.0 Total Bilirubin 2.2 H AST 28 ALT 29 Alkaline Phosphatase 124 Troponin I < 0.0120 Total Protein 7.1 Albumin 3.8 Globulin 3.2 Albumin/Globulin Ratio 1.2 Triglycerides 56 D Cholesterol 126 LDL Cholesterol Direct 67 HDL Cholesterol 35 Blood Type AB POSITIVE Antibody Screen Negative 11/24/17 16:23 WBC RBC Hgb Hct MCV MCH MCHC RDW Plt Count MPV Neut % (Auto) Lymph % (Auto) [place] % (Auto) Eos % (Auto) Baso % (Auto) Neut # (Auto) Lymph # (Auto) [place] # (Auto) Eos # (Auto) Baso # (Auto) Neutrophils % (Manual) Band Neutrophils % Lymphocytes % (Manual) Monocytes % (Manual) Platelet Estimate Ovalocytes PT INR APTT Sodium Potassium Chloride Carbon Dioxide Anion Gap BUN Creatinine Est GFR ( Amer) Est GFR (Non-Af Amer) POC Glucose (mg/dL) 113 H Random Glucose Hemoglobin A1c Calcium Total Bilirubin AST ALT Alkaline Phosphatase Troponin I Total Protein Albumin Globulin Albumin/Globulin Ratio Triglycerides Cholesterol LDL Cholesterol Direct HDL Cholesterol Blood Type Antibody Screen Attending/Attestation - Attestation I have personally seen and examined this patient.: Yes I have fully participated in the care of the patient.: Yes I have reviewed all pertinent clinical information: Yes Notes (Text): 11/24/17 17:06 I have seen and examined the patient. Medical records, lab studies, and imaging were reviewed by me and a management plan was formulated on multidisciplinary rounds with resident Dr. Storey. I agree with their documented assessment and plan. Admitted for cerebellar hemorrhage. Neuro checks, repeat head CT 6 hours from initial and repeat in am. Neurosurgery consulted. Family is amenable to SOC if needed, but patient may not be a good candidate for this intervention given her age. Patient was on Eliquis, but reversal agent is not available, Kcentra of limited usefulness. Maintain SBP<140. Critical Care Time 35 minutes. Multi-disciplinary rounds were performed with house staff, nursing, speech therapy, respiratory therapy, pharmacy and nutrition with integrated input from the primary team/attending and other consulting services. The documented time is cumulative and includes review of patient data/exams/labs/chart review and examination of the patient on rounds and throughout the day; time is exclusive of any procedures or teaching time. 11/24/17 18:24 <Afua Storey P - Last Filed: 11/24/17 18:58> History of Present Illness - History of Present Illness History of Present Illness: PGY-1 Critical Care consult note. Patient is a 81 year old F with PMHx of CVA (04/2017), Atrial fibrillation, HTN, HLD, arthritis, and dementia. History obtained via daughter and chart review, as patient is demented and unaware of her medical conditions. Patient sent to ED from assisted living facility [facility] for evaluation of lethargy, mumbling speech and difficulty ambulating. Code stroke was called in the ED. CT Head demonstrated an Acute right cerebellar hemispheric hemorrhage. Patient states she feels fine. She denies headache, dizziness, lightheadedness, numbness , tingling, nausea, vomiting, abdominal pain, and shortness of breath. Patient admitted to ICU for acute hemorrhagic stroke, neurological and cardiovascular monitoring. Head CT 11/24/17: Acute right cerebellar hemispheric hemorrhage. Old right frontal and right occipital infarcts with resulting encephalomalacia. Moderate chronic white matter ischemic change. Old bilateral basal ganglia and thalamic lacunar infarcts. Head/Neck CTA: 1. No evidence of endoluminal thrombus,occlusion or definite significant stenosis in the intracranial arteries. 2. No evidence of hemodynamically significant stenosis in the internal carotid arteries. 3. Dolichoectasia of the vertebrobasilar system. Patent bilateral vertebral arteries. PMHx: CVA (04/2017), Atrial fibrillation, HTN, HLD, arthritis, and dementia PSHx: R knee replacement Meds: Amlodipine 5mg Daily, Lopressor 50mg PO Q12H, Atorvastatin 20mg PO HS, Quetiapine 25mg PO HS, Omeprazole 40mg PO daily, Eliquis 5mg PO BID, Ferrous sulfate 325 mg PO daily Allergy: NKDA Social: Denies tobacco, alcohol and illicit drug use Code Status: DNR/DNI Proxy: Joceline Salgado, daughter: [phone]; Adrian Valencia, son: Review of Systems - Review of Systems Systems not reviewed;Unavailable: Other (Patient with dementia) Past Patient History - Tetanus Immunizations Tetanus Immunization: Unknown - Past Medical History & Family History Past Medical History?: Yes - Past Social History Smoking Status: Former Smoker - CARDIAC Hx Atrial Fibrillation: Yes Hx Cardia Arrhythmia: Yes (A FIB) Hx Hypercholesterolemia: Yes Hx Hypertension: Yes - PULMONARY Hx Respiratory Disorders: No - NEUROLOGICAL Hx Dementia: Yes - HEENT Hx HEENT Problems: Yes - RENAL Hx Chronic Kidney Disease: No - ENDOCRINE/METABOLIC Hx Endocrine Disorders: No - HEMATOLOGICAL/ONCOLOGICAL Hx Anemia: Yes Hx Human Immunodeficiency Virus (HIV): No - INTEGUMENTARY Hx Dermatological Problems: No - MUSCULOSKELETAL/RHEUMATOLOGICAL Hx Arthritis: Yes Hx Fractures: No Hx Osteoporosis: Yes - GASTROINTESTINAL Hx Gastrointestinal Disorders: Yes Other/Comment: GI bleed. - GENITOURINARY/GYNECOLOGICAL Hx Genitourinary Disorders: No - PSYCHIATRIC Hx Substance Use: No - SURGICAL HISTORY Hx Surgeries: Yes Hx Joint Replacement: Yes (right knee) - ANESTHESIA Hx Anesthesia Reactions: No Meds - Medications Medications: Current Medications Sodium Chloride (Sodium Chloride 0.9%) 1,000 mls @ 75 mls/hr IV .[id number] KARO Nicardipine HCl 25 mg/ Sodium (Chloride) 250 mls @ 50 mls/hr IV .Q5H KARO; 5 MG/ HR PRN Reason: Protocol Pantoprazole Sodium (Protonix Inj) 40 mg IVP DAILY KARO Physical Exam - Head Exam Head Exam: ATRAUMATIC, NORMOCEPHALIC - Eye Exam Eye Exam: EOMI, PERRL - ENT Exam ENT Exam: Mucous Membranes Moist - Neck Exam Neck exam: Positive for: Full Rom, Normal Inspection - Respiratory Exam Respiratory Exam: Clear to Auscultation Bilateral. absent: Rales, Rhonchi, Wheezes - Cardiovascular Exam Cardiovascular Exam: REGULAR RHYTHM, +S1, +S2 - GI/Abdominal Exam GI & Abdominal Exam: Soft. absent: Tenderness - Extremities Exam Extremities exam: Negative for: calf tenderness, pedal edema - Neurological Exam Neurological exam: CN II-XII Intact Additional comments: Patient oriented x1 (person). Noted to be somnolent but easily arousable. 5/5 muscle strength in all extremities. Sensation intact. - Psychiatric Exam Psychiatric exam: Flat Affect - Skin Skin Exam: Intact, Normal Color, Warm Results - Vital Signs Recent Vital Signs: Last Vital Signs Temp 97.9 F 11/24/17 10:15 Pulse 81 11/24/17 13:11 Resp 20 11/24/17 13:11 BP 136/73 11/24/17 13:11 Pulse Ox 98 11/24/17 13:11 - Labs Result Diagrams: 11/24/17 10:34 11/24/17 10:34 Labs: Laboratory Results - last 24 hr 11/24/17 11/24/17 11/24/17 10:18 10:34 10:34 WBC 8.4 RBC 5.22 H Hgb 15.6 D Hct 45.7 MCV 87.5 D MCH 29.9 MCHC 34.2 RDW 14.5 Plt Count 162 MPV 7.9 Neut % (Auto) 89.3 H Lymph % (Auto) 7.6 L [place] % (Auto) 2.6 Eos % (Auto) 0.1 Baso % (Auto) 0.4 Neut # (Auto) 7.5 H Lymph # (Auto) 0.6 L [place] # (Auto) 0.2 Eos # (Auto) 0.0 Baso # (Auto) 0.0 Neutrophils % (Manual) 86 H Band Neutrophils % 2 Lymphocytes % (Manual) 9 L Monocytes % (Manual) 3 Platelet Estimate Normal Ovalocytes Slight PT 14.7 H INR 1.3 APTT 32 Sodium Potassium Chloride Carbon Dioxide Anion Gap BUN Creatinine Est GFR ( Amer) Est GFR (Non-Af Amer) POC Glucose (mg/dL) 141 H Random Glucose Hemoglobin A1c Calcium Total Bilirubin AST ALT Alkaline Phosphatase Troponin I Total Protein Albumin Globulin Albumin/Globulin Ratio Triglycerides Cholesterol LDL Cholesterol Direct HDL Cholesterol Blood Type Antibody Screen 11/24/17 11/24/17 11/24/17 10:34 10:40 10:41 WBC RBC Hgb Hct MCV MCH MCHC RDW Plt Count MPV Neut % (Auto) Lymph % (Auto) [place] % (Auto) Eos % (Auto) Baso % (Auto) Neut # (Auto) Lymph # (Auto) [place] # (Auto) Eos # (Auto) Baso # (Auto) Neutrophils % (Manual) Band Neutrophils % Lymphocytes % (Manual) Monocytes % (Manual) Platelet Estimate Ovalocytes PT INR APTT Sodium 141 Potassium 4.3 Chloride 102 Carbon Dioxide 28 Anion Gap 16 BUN 19 H Creatinine 0.8 Est GFR ( Amer) > 60 Est GFR (Non-Af Amer) > 60 POC Glucose (mg/dL) Random Glucose 156 H Hemoglobin A1c 5.6 Calcium 9.0 Total Bilirubin 2.2 H AST 28 ALT 29 Alkaline Phosphatase 124 Troponin I < 0.0120 Total Protein 7.1 Albumin 3.8 Globulin 3.2 Albumin/Globulin Ratio 1.2 Triglycerides 56 D Cholesterol 126 LDL Cholesterol Direct 67 HDL Cholesterol 35 Blood Type AB POSITIVE Antibody Screen Negative Assessment & Plan - Assessment and Plan (Free Text) Plan: Patient is a 81 year old F with PMHx of CVA (04/2017), Atrial fibrillation, HTN, HLD, arthritis, and dementia. History obtained via daughter and chart review, as patient is demented and unaware of her medical conditions. Patient sent to ED from assisted living facility [facility] for evaluation of lethargy, mumbling speech and difficulty ambulating. Code stroke was called in the ED. CT Head demonstrated an acute right cerebellar hemispheric hemorrhage. Patient is on Eliquis for prior CVA, which was last taken today at 9: 25am. Patient states she feels "okay." She denies headache, dizziness, lightheadedness, focal weakness, numbness, change in vision, nausea, vomiting, abdominal pain, and shortness of breath. Patient admitted to ICU for acute cerebellar hemorrhage and neurological and cardiovascular monitoring. Neurological: -Head CT 11/24/17: Acute right cerebellar hemispheric hemorrhage. Old right frontal and right occipital infarcts with resulting encephalomalacia. Moderate chronic white matter ischemic change. Old bilateral basal ganglia and thalamic lacunar infarcts. -Head/Neck CTA 11/24/17: 1. No evidence of endoluminal thrombus,occlusion or definite significant stenosis in the intracranial arteries. 2. No evidence of hemodynamically significant stenosis in the internal carotid arteries. 3. Dolichoectasia of the vertebrobasilar system. Patent bilateral vertebral arteries. -Head CT 04/18/17: Diffuse hypodensity at the suspicious for acute or subacute infarction. 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 Atrophy and white matter changes suggestive but nonspecific for chronic microvascular ischemic disease. Neurochecks Q1H 1:[address] Rodgers, neurosurgery consulted: MRI in AM, no intervention at this time Dr. Ko, neurology, consulted. Help appreciated: Repeat Head CT 8pm Consider possible suboccipital decompression if hemorrhage worsens Hold Eliquis Eliquis reversal agent not available Cardiovascular: Echocardiogram in the AM Echo 11/16/17: Borderline concentric LV hypertrophy, LV systolic function borderline. EF 50-55%. Transmitral doppler flow pattern is grade 2-pseudonormal filling dynamics. Mitral regurgitation is mild to moderate. There is mild- moderate pulmonary HTN. Control blood pressure, SBP <140 Nicardipine drip started 11/24/17 IVF Respiratory: maintain SpO2 >95 CXR Renal: BUN/CR: 17/ Infectious disease: WBC normal Hematology: H/H stable Gastrointestinal: NPO Bedside swallow screen Endocrine: maintain euglycemia Prophylaxis: Protonix 40 IV daily. Contraindication to chemical VTE prophylaxis. SCDs. Hold PO meds until passes swallow screen Dispo: Continue ICU management. Discussed with Dr. Kwon.
[2017-11-24] MEDS: Sodium Chloride 0.9% 1,000 ML IV SCH (14:43)
[2017-11-24] MEDS: niCARdipine IV 25 MG in Sodium Chloride 0.9% 240 ML IV SCH ×2 (16:09→19:55)
--- NOTE | 2017-11-24 17:48 | CP.PCM.HP ---
History of Present Illness - History of Present Illness History of Present Illness: Chief complaint: Called from intermediate that the patient was poorly responding, mumbling, and more lethargic,Patient was sent to the emergency room following that History of present illness: 81-year-old female with a history of hypertension, osteoporosis, hyperlipidemia , atrial fibrillation, dementia. Patient also in the past hospitalized with anemia, and a suspected GI bleed. Patient had frequent falls in the past. Patient was hospitalized more than a year ago with acute ischemic CVA, following that ischemic CVA patient placed on Eliquis. Patient was doing well. I saw the patient at least once a month, 2 weeks ago patient was seen by me in the office, was doing well at the time. As per the nurse the patient was doing well yesterday. This morning she was not waking up, and the nurse noticed that she was more lethargic, not eating, she was poorly responding. But she was mumbling. And she was trying to get up and walk, and she was tumbling when she was walking. Unstable gait was noted. Immediately they called me, and I advised her to go to the emergency room immediately. In the emergency room patient was noted to have a cerebellar bleed, and also hypertension. So patient is currently admitted with acute hemorrhagic CVA to the intensive care unit. Past medical history: Hypertension, dementia, atrial fibrillation,CVA Allergy: No known drug allergy Personal history used to be a smoker in the past. Currently living in assisted facility No recent surgical intervention Review of system: Patient is responding to verbal commands. She is moving all 4 extremities. Unstable sometimes. Trembling noted. Patient was able to swallow. She has no headache. No nausea vomiting noted. No abdominal pain noted. Leg swelling negative On examination: Vital signs reviewed Chest bilateral good air entry regular heart sound nontender abdomen no pedal edema Patient able to sit up. But unable to get up. Difficulty in walking noted. But not attempted to walk. Lower extremities minimal weakness noted. Strength in the upper extremities normal. Patient is having advanced dementia. But she is verbalizing with the simple commands, she is following simple commands. Labs reviewed CAT scan of the head showing evidence of bleeding occupying the right cerebral large area small bleeding noted. Fourth ventricle is patent Assessment and recommendation: 80-year-old female with history of hypertension and hypercholesteremia osteoporosis atrial fibrillation History of ischemic CVA. Patient was placed on Eliquis. Now admitted with acute hemorrhagic CVA involving the cerebellar. Patient also has a cerebellar signs including unstable gait, nausea. Patient will be closely monitored in the intensive care unit. Patient has a DNR DNI advanced directives as per the family. I spoke to the patient daughter in detail. We will repeat the CAT scan. Patient was seen by neurosurgery. Off anticoagulation, and antiplatelets now. But the patient is at high risk for DVT and ischemic CVA. Prognosis guarded. Condition critical. Will follow the patient Present on Admission - Present on Admission Any Indicators Present on Admission: No History of DVT/PE: No History of Uncontrolled Diabetes: No Urinary Catheter: No Decubitus Ulcer Present: No Past Patient History - Tetanus Immunizations Tetanus Immunization: Unknown - Past Medical History & Family History Past Medical History?: Yes - Past Social History Smoking Status: Former Smoker - CARDIAC Hx Atrial Fibrillation: Yes Hx Cardia Arrhythmia: Yes (A FIB) Hx Hypercholesterolemia: Yes Hx Hypertension: Yes - PULMONARY Hx Respiratory Disorders: No - NEUROLOGICAL Hx Dementia: Yes - HEENT Hx HEENT Problems: Yes - RENAL Hx Chronic Kidney Disease: No - ENDOCRINE/METABOLIC Hx Endocrine Disorders: No - HEMATOLOGICAL/ONCOLOGICAL Hx Anemia: Yes Hx Human Immunodeficiency Virus (HIV): No - INTEGUMENTARY Hx Dermatological Problems: No - MUSCULOSKELETAL/RHEUMATOLOGICAL Hx Arthritis: Yes Hx Fractures: No Hx Osteoporosis: Yes - GASTROINTESTINAL Hx Gastrointestinal Disorders: Yes Other/Comment: GI bleed. - GENITOURINARY/GYNECOLOGICAL Hx Genitourinary Disorders: No - PSYCHIATRIC Hx Substance Use: No - SURGICAL HISTORY Hx Surgeries: Yes Hx Joint Replacement: Yes (right knee) - ANESTHESIA Hx Anesthesia Reactions: No Meds Allergies/Adverse Reactions: Allergies Allergy/AdvReac Type Severity Reaction Status Date / Time No Known Allergies Allergy Verified 04/22/17 19:41 Results - Vital Signs Recent Vital Signs: Last Vital Signs Temp 97.7 F 11/24/17 16:00 Pulse 78 11/24/17 17:00 Resp 20 11/24/17 17:00 BP 134/84 11/24/17 17:00 Pulse Ox 98 11/24/17 17:36 - Labs Result Diagrams: 11/24/17 10:34 11/24/17 10:34 Labs: Laboratory Results - last 24 hr 11/24/17 11/24/17 11/24/17 10:18 10:34 10:34 WBC 8.4 RBC 5.22 H Hgb 15.6 D Hct 45.7 MCV 87.5 D MCH 29.9 MCHC 34.2 RDW 14.5 Plt Count 162 MPV 7.9 Neut % (Auto) 89.3 H Lymph % (Auto) 7.[address] [place] % (Auto) 2.6 Eos % (Auto) 0.1 Baso % (Auto) 0.4 Neut # (Auto) 7.5 H Lymph # (Auto) 0.[address] [place] # (Auto) 0.2 Eos # (Auto) 0.0 Baso # (Auto) 0.0 Neutrophils % (Manual) 86 H Band Neutrophils % 2 Lymphocytes % (Manual) 9 L Monocytes % (Manual) 3 Platelet Estimate Normal Ovalocytes Slight PT 14.7 H INR 1.3 APTT 32 Sodium Potassium Chloride Carbon Dioxide Anion Gap BUN Creatinine Est GFR ( Amer) Est GFR (Non-Af Amer) POC Glucose (mg/dL) 141 H Random Glucose Hemoglobin A1c Calcium Total Bilirubin AST ALT Alkaline Phosphatase Troponin I Total Protein Albumin Globulin Albumin/Globulin Ratio Triglycerides Cholesterol LDL Cholesterol Direct HDL Cholesterol Blood Type Antibody Screen 11/24/17 11/24/17 11/24/17 10:34 10:40 10:41 WBC RBC Hgb Hct MCV MCH MCHC RDW Plt Count MPV Neut % (Auto) Lymph % (Auto) [place] % (Auto) Eos % (Auto) Baso % (Auto) Neut # (Auto) Lymph # (Auto) [place] # (Auto) Eos # (Auto) Baso # (Auto) Neutrophils % (Manual) Band Neutrophils % Lymphocytes % (Manual) Monocytes % (Manual) Platelet Estimate Ovalocytes PT INR APTT Sodium 141 Potassium 4.3 Chloride 102 Carbon Dioxide 28 Anion Gap 16 BUN 19 H Creatinine 0.8 Est GFR ( Amer) > 60 Est GFR (Non-Af Amer) > 60 POC Glucose (mg/dL) Random Glucose 156 H Hemoglobin A1c 5.6 Calcium 9.0 Total Bilirubin 2.2 H AST 28 ALT 29 Alkaline Phosphatase 124 Troponin I < 0.0120 Total Protein 7.1 Albumin 3.8 Globulin 3.2 Albumin/Globulin Ratio 1.2 Triglycerides 56 D Cholesterol 126 LDL Cholesterol Direct 67 HDL Cholesterol 35 Blood Type AB POSITIVE Antibody Screen Negative 11/24/17 16:23 WBC RBC Hgb Hct MCV MCH MCHC RDW Plt Count MPV Neut % (Auto) Lymph % (Auto) [place] % (Auto) Eos % (Auto) Baso % (Auto) Neut # (Auto) Lymph # (Auto) [place] # (Auto) Eos # (Auto) Baso # (Auto) Neutrophils % (Manual) Band Neutrophils % Lymphocytes % (Manual) Monocytes % (Manual) Platelet Estimate Ovalocytes PT INR APTT Sodium Potassium Chloride Carbon Dioxide Anion Gap BUN Creatinine Est GFR ( Amer) Est GFR (Non-Af Amer) POC Glucose (mg/dL) 113 H Random Glucose Hemoglobin A1c Calcium Total Bilirubin AST ALT Alkaline Phosphatase Troponin I Total Protein Albumin Globulin Albumin/Globulin Ratio Triglycerides Cholesterol LDL Cholesterol Direct HDL Cholesterol Blood Type Antibody Screen
[2017-11-24 19:55] LABS: CK-MB 1.43 ng/mL (0.0-3.38)
[2017-11-24] MEDS ORDERED: Dexmedetomidine Hydrochloride 200 MCG in Sodium Chloride 0.9% 48 ML IV PRN (20:45)
[2017-11-24] MEDS: Dexmedetomidine Hydrochloride 400 MCG in Sodium Chloride 0.9% 96 ML IV PRN (23:12)
[2017-11-25] MEDS: niCARdipine IV 25 MG in Sodium Chloride 0.9% 240 ML IV SCH ×2 (01:31→06:07)
[2017-11-25] MEDS: Sodium Chloride 0.9% 1,000 ML IV SCH ×4 (03:07→22:54)
[2017-11-25] MEDS: Dexmedetomidine Hydrochloride 400 MCG in Sodium Chloride 0.9% 96 ML IV PRN ×2 (03:08→08:46)
[2017-11-25 06:09] LABS: BASO % 0.3 % (0.0-2.0); EOS # 0.1 K/uL (0.0-0.7); EOS % 1.7 % (0.0-4.0); HEMOGLOBIN 15.3 g/dL (11.0-16.0); LYMPH # 0.8 K/uL (1.0-4.3); LYMPH % 12.6 % (20.0-40.0); MEAN CELL VOLUME 87.1 fL (81.0-99.0); MEAN CORPUSCULAR HEMOGLOBIN 29.1 pg (27.0-31.0); MEAN CORPUSCULAR HGB CONC 33.4 g/dL (33.0-37.0); MEAN PLATELET VOLUME 7.9 fL (7.2-11.7); MONO # 0.6 K/uL (0.0-0.8); MONO % 8.6 % (0.0-10.0); NEUT % 76.8 % (50.0-75.0); RBC 5.25 Mil/uL (3.80-5.20); WHITE BLOOD COUNT 6.5 K/uL (4.8-10.8)
[2017-11-25 06:33] LABS: ALB/GLOB RATIO 1.3 (1.0-2.1); ALBUMIN 3.2 g/dL (3.5-5.0); ALT/SGPT 589 U/L (9-52); AST/SGOT 715 U/L (14-36); BLOOD UREA NITROGEN 25 mg/dL (7-17); CALCIUM 8.7 mg/dl (8.6-10.4); GFR AFRICAN-AMERICAN > 60; GFR NON-AFRICAN AMERICAN > 60
[2017-11-25 06:36] LABS: CK-MB 2.08 ng/mL (0.0-3.38)
--- NOTE | 2017-11-25 06:53 | CP.PCM.PN ---
Subjective - Date & Time of Evaluation Date of Evaluation: 11/25/17 Time of Evaluation: 06:50 - Subjective Subjective: Ms. Valencia was seen and examined at the bedside in ICU. She is asleep on precedex drip due to increase agitation last night. She has corneal reflex, with pupils sluggishly reactive to light accommodation, on nasal cannula for oxygen support. She withdraws to pain stimuli. With her patient current status, ROS was not possible.There was no untoward events overnight. Objective - Vital Signs/Intake and Output Vital Signs (last 24 hours): Temp Pulse Resp BP Pulse Ox 98 F 60 15 153/93 H 100 11/25/17 04:00 11/25/17 06:12 11/25/17 04:00 11/25/17 06:12 11/25/17 05:42 Intake and Output: 11/24/17 11/25/17 18:59 06:59 Intake Total 670 1732.7 Output Total 1000 500 Balance -330 1232.7 - Medications Medications: Current Medications Haloperidol Lactate (Haldol) 5 mg IVP BID PRN PRN Reason: Agitation Last Admin: 11/24/17 19:46 Dose: 5 mg Sodium Chloride (Sodium Chloride 0.9%) 1,000 mls @ 75 mls/hr IV .[id number] KARO Last Admin: 11/25/17 03:07 Dose: Not Given Nicardipine HCl 25 mg/ Sodium (Chloride) 250 mls @ 50 mls/hr IV .Q5H KARO; 5 MG/ HR PRN Reason: Protocol Last Admin: 11/25/17 06:07 Dose: Not Given Dexmedetomidine HCl 400 mcg/ (Sodium Chloride) 100 mls @ 5.34 mls/hr IV TITR PRN; Protocol; 0.2 MCG/KG/HR PRN Reason: Agitation Last Titration: 11/25/17 05:41 Dose: 0.5 mcg/kg/hr, 13.36 mls/hr Pantoprazole Sodium (Protonix Inj) 40 mg IVP DAILY KARO - Labs Labs: 11/25/17 05:57 11/25/17 05:57 PT 14.7 SECONDS (9.7-12.2) H 11/24/17 10:34 INR 1.3 11/24/17 10:34 APTT 32 SECONDS (21-34) 11/24/17 10:34 - Constitutional Appears: No Acute Distress - Head Exam Head Exam: NORMAL INSPECTION - Eye Exam Pupil Exam: Miosis, PERRL Additional comments: 2 mm sluggish - Neurological Exam Neuro motor strength exam: Left Upper Extremity: 2/1, Right Upper Extremity: 2/1 , Left Lower Extremity: 2/1, Right Lower Extremity: 2/1 Additional comments: on a precedex drip for agitation, unable to do ROS. Assessment and Plan (1) Hemorrhagic stroke Assessment & Plan: Continue all current medical regimen including no anti-coagulation/ antiplatelet. Pending results of repeat Ct of the head. Recommend PT,OT, ST eval and treat, Blood pressure control keep SBP below 160 and diastolic below 90 , normothermia, echocardiogram, keep head of bed elevated at least 30 degrees, treat any electrolyte abnormalities. Status: Acute
--- NOTE | 2017-11-25 09:11 | CT ---
Date of service: 11/24/2017 PROCEDURE: CT HEAD WITHOUT CONTRAST. HISTORY: intracerebral bleed COMPARISON: 11/24/2017 at 10:45 a.m. TECHNIQUE: Axial computed tomography images were obtained through the head/brain without intravenous contrast. Radiation dose: Total exam DLP = 1041.16 mGy-cm. This CT exam was performed using one or more of the following dose reduction techniques: Automated exposure control, adjustment of the mA and/or kV according to patient size, and/or use of iterative reconstruction technique. FINDINGS: HEMORRHAGE: There is redemonstration of 1.9 x 1.7 cm acute hematoma in the right paramedian superior cerebellar hemisphere with mild surrounding vasogenic edema without significant mass effect, midline shift or herniation. BRAIN: Redemonstration of cystic encephalomalacia in the right occipital lobe. There is also cystic encephalomalacia in the right frontal lobe. There are severe chronic microangiopathic changes. VENTRICLES: There is mild age-related global parenchymal volume loss and proportionate enlargement of the ventricles and cortical sulci. CALVARIUM: The skull base and calvarium are normal. PARANASAL SINUSES: Predominantly clear. MASTOID AIR CELLS: Predominantly clear. OTHER FINDINGS: None. IMPRESSION: Little interval change 1.9 x 1.7 cm acute hematoma with mild surrounding vasogenic edema in the right paramedian superior cerebellar hemisphere. No midline shift, obstructive hydrocephalus or herniation. 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 .
--- NOTE | 2017-11-25 10:03 | CP.PCM.CON ---
<Marlyn Espinosa - Last Filed: 11/25/17 16:24> History of Present Illness - History of Present Illness History of Present Illness: Cardiology Consult Note - Dr Watson Patient is a 81 year old female with past medical history of Hypertension, Osteoporoesis, Hyperlipidemia, Atrial fibrillation, Ischemic CVA, frequent falls who was sent to the hospital from [facility] for increasing lethargy, decreased PO intake and poorly responding. Code stroke was called in the emergency department. Patient was found to have a right cerebellar hemisphere hemorrhage on Head CT. Patient admitted to the ICU for further monitoring. Allergies: Apixaban Medications: Norvasc 5mg, Eliquis 5mg BID, Seroquel 25mg PO daily, Lopressor 50mg, Lipitor 20mg HS, FeSol 325mg, Omeprazole 40mg PO daily Medical History: Hypertension, Osteoporoesis, Hyperlipidemia, Atrial fibrillation, Ischemic CVA, frequent falls Surgical History: R knee replacement Social History: Denies tobacco, alcohol and illicit drug use Past Patient History - Tetanus Immunizations Tetanus Immunization: Unknown - Past Medical History & Family History Past Medical History?: Yes - Past Social History Smoking Status: Former Smoker - CARDIAC Hx Atrial Fibrillation: Yes Hx Cardia Arrhythmia: Yes (A FIB) Hx Hypercholesterolemia: Yes Hx Hypertension: Yes - PULMONARY Hx Respiratory Disorders: No - NEUROLOGICAL Hx Dementia: Yes - HEENT Hx HEENT Problems: Yes - RENAL Hx Chronic Kidney Disease: No - ENDOCRINE/METABOLIC Hx Endocrine Disorders: No - HEMATOLOGICAL/ONCOLOGICAL Hx Anemia: Yes Hx Human Immunodeficiency Virus (HIV): No - INTEGUMENTARY Hx Dermatological Problems: No - MUSCULOSKELETAL/RHEUMATOLOGICAL Hx Arthritis: Yes Hx Fractures: No Hx Osteoporosis: Yes - GASTROINTESTINAL Hx Gastrointestinal Disorders: Yes Other/Comment: GI bleed. - GENITOURINARY/GYNECOLOGICAL Hx Genitourinary Disorders: No - PSYCHIATRIC Hx Substance Use: No - SURGICAL HISTORY Hx Surgeries: Yes Hx Joint Replacement: Yes (right knee) - ANESTHESIA Hx Anesthesia Reactions: No Meds Allergies/Adverse Reactions: Allergies Allergy/AdvReac Type Severity Reaction Status Date / Time apixaban [From Eliquis] Allergy Severe hemorrhage Verified 11/25/17 09:47 - Medications Medications: Current Medications Amlodipine Besylate (Norvasc) 5 mg PO DAILY KARO Sodium Chloride (Sodium Chloride 0.9%) 1,000 mls @ 75 mls/hr IV .[id number] [facility] Last Admin: 11/25/17 03:07 Dose: Not Given Dexmedetomidine HCl 400 mcg/ (Sodium Chloride) 100 mls @ 5.34 mls/hr IV TITR PRN; Protocol; 0.2 MCG/KG/HR PRN Reason: Agitation Last Titration: 11/25/17 05:41 Dose: 0.5 mcg/kg/hr, 13.36 mls/hr Pantoprazole Sodium (Protonix Inj) 40 mg IVP DAILY [facility] Physical Exam - Constitutional Appears: Well, No Acute Distress - Head Exam Head Exam: ATRAUMATIC, NORMAL INSPECTION, NORMOCEPHALIC - Eye Exam Eye Exam: EOMI, Normal appearance - ENT Exam ENT Exam: Mucous Membranes Moist - Respiratory Exam Respiratory Exam: NORMAL BREATHING PATTERN - Cardiovascular Exam Cardiovascular Exam: Irregular Rhythm, +S1, +S2 - GI/Abdominal Exam GI & Abdominal Exam: Soft - Extremities Exam Extremities exam: Positive for: pedal pulses present - Neurological Exam Additional comments: Sedated - Skin Skin Exam: Dry, Normal Color, Warm Results - Vital Signs Recent Vital Signs: Last Vital Signs Temp 98 F 11/25/17 04:00 Pulse 60 11/25/17 06:42 Resp 15 11/25/17 04:00 BP 136/74 11/25/17 06:42 Pulse Ox 100 11/25/17 06:42 - Labs Result Diagrams: 11/25/17 05:57 11/25/17 05:57 Labs: Laboratory Results - last 24 hr 11/24/17 11/24/17 11/24/17 10:18 10:34 10:34 WBC 8.4 RBC 5.22 H Hgb 15.6 D Hct 45.7 MCV 87.5 D MCH 29.9 MCHC 34.2 RDW 14.5 Plt Count 162 MPV 7.9 Neut % (Auto) 89.3 H Lymph % (Auto) 7.6 L Long % (Auto) 2.6 Eos % (Auto) 0.1 Baso % (Auto) 0.4 Neut # (Auto) 7.5 H Lymph # (Auto) 0.6 L Long # (Auto) 0.2 Eos # (Auto) 0.0 Baso # (Auto) 0.0 Neutrophils % (Manual) 86 H Band Neutrophils % 2 Lymphocytes % (Manual) 9 L Monocytes % (Manual) 3 Platelet Estimate Normal Ovalocytes Slight PT 14.7 H INR 1.3 APTT 32 Sodium Potassium Chloride Carbon Dioxide Anion Gap BUN Creatinine Est GFR ( Amer) Est GFR (Non-Af Amer) POC Glucose (mg/dL) 141 H Random Glucose Hemoglobin A1c Calcium Phosphorus Magnesium Total Bilirubin AST ALT Alkaline Phosphatase Total Creatine Kinase CK-MB (Mass) Troponin I Total Protein Albumin Globulin Albumin/Globulin Ratio Triglycerides Cholesterol LDL Cholesterol Direct HDL Cholesterol Blood Type Antibody Screen 11/24/17 11/24/17 11/24/17 10:34 10:40 10:41 WBC RBC Hgb Hct MCV MCH MCHC RDW Plt Count MPV Neut % (Auto) Lymph % (Auto) Long % (Auto) Eos % (Auto) Baso % (Auto) Neut # (Auto) Lymph # (Auto) Long # (Auto) Eos # (Auto) Baso # (Auto) Neutrophils % (Manual) Band Neutrophils % Lymphocytes % (Manual) Monocytes % (Manual) Platelet Estimate Ovalocytes PT INR APTT Sodium 141 Potassium 4.3 Chloride 102 Carbon Dioxide 28 Anion Gap 16 BUN 19 H Creatinine 0.8 Est GFR ( Amer) > 60 Est GFR (Non-Af Amer) > 60 POC Glucose (mg/dL) Random Glucose 156 H Hemoglobin A1c 5.6 Calcium 9.0 Phosphorus Magnesium Total Bilirubin 2.2 H AST 28 ALT 29 Alkaline Phosphatase 124 Total Creatine Kinase CK-MB (Mass) Troponin I < 0.0120 Total Protein 7.1 Albumin 3.8 Globulin 3.2 Albumin/Globulin Ratio 1.2 Triglycerides 56 D Cholesterol 126 LDL Cholesterol Direct 67 HDL Cholesterol 35 Blood Type AB POSITIVE Antibody Screen Negative 11/24/17 11/24/17 11/24/17 16:23 19:15 21:05 WBC RBC Hgb Hct MCV MCH MCHC RDW Plt Count MPV Neut % (Auto) Lymph % (Auto) Long % (Auto) Eos % (Auto) Baso % (Auto) Neut # (Auto) Lymph # (Auto) Long # (Auto) Eos # (Auto) Baso # (Auto) Neutrophils % (Manual) Band Neutrophils % Lymphocytes % (Manual) Monocytes % (Manual) Platelet Estimate Ovalocytes PT INR APTT Sodium Potassium Chloride Carbon Dioxide Anion Gap BUN Creatinine Est GFR ( Amer) Est GFR (Non-Af Amer) POC Glucose (mg/dL) 113 H 133 H Random Glucose Hemoglobin A1c Calcium Phosphorus Magnesium Total Bilirubin AST ALT Alkaline Phosphatase Total Creatine Kinase 29 L CK-MB (Mass) 1.43 Troponin I < 0.0120 Total Protein Albumin Globulin Albumin/Globulin Ratio Triglycerides Cholesterol LDL Cholesterol Direct HDL Cholesterol Blood Type Antibody Screen 11/25/17 11/25/17 05:57 05:57 WBC 6.5 RBC 5.25 H Hgb 15.3 Hct 45.8 MCV 87.1 MCH 29.1 MCHC 33.4 RDW 14.0 Plt Count 135 MPV 7.9 Neut % (Auto) 76.8 H Lymph % (Auto) 12.6 L Long % (Auto) 8.6 Eos % (Auto) 1.7 Baso % (Auto) 0.3 Neut # (Auto) 5.0 Lymph # (Auto) 0.8 L Long # (Auto) 0.6 Eos # (Auto) 0.1 Baso # (Auto) 0.0 Neutrophils % (Manual) Band Neutrophils % Lymphocytes % (Manual) Monocytes % (Manual) Platelet Estimate Ovalocytes PT INR APTT Sodium 136 Potassium 5.1 Chloride 103 Carbon Dioxide 20 L Anion Gap 18 BUN 25 H Creatinine 0.8 Est GFR ( Amer) > 60 Est GFR (Non-Af Amer) > 60 POC Glucose (mg/dL) Random Glucose 131 H Hemoglobin A1c Calcium 8.7 Phosphorus 3.8 Magnesium 2.2 Total Bilirubin 1.7 H AST 715 H D ALT 589 H D Alkaline Phosphatase 268 H D Total Creatine Kinase 23 L CK-MB (Mass) 2.08 Troponin I 0.0130 Total Protein 5.5 L Albumin 3.2 L Globulin 2.3 Albumin/Globulin Ratio 1.3 Triglycerides Cholesterol LDL Cholesterol Direct HDL Cholesterol Blood Type Antibody Screen Assessment & Plan - Assessment and Plan (Free Text) Assessment: Acute Right Cerebellar Hemisphere Hemorrhage -Monitor in the ICU -Patient extremely agitated overnight, started on Precedex drip -Head CT showed acute R cerebellar hemisphere hemorrhage -Repeat Head CT showed little interval change 1.9 x 1.7 cm acute hematoma with mild surrounding vasogenic edema in the right paramedian superior cerebellar hemisphere. No midline shift, obstructive hydrocephalus or herniation -F/U Brain MRI and MRA -Neurology on consult -Neurosurgery on consult Atrial Fibrillation -Currently rate controlled -Hold all anticoagulation -Troponins negative x 3 -F/U echocardiogram -Last echo 11/16/17 showed Borderline concentric LV hypertrophy, LV systolic function borderline. EF 50-55%. Transmitral doppler flow pattern is grade 2- pseudonormal filling dynamics. Mitral regurgitation is mild to moderate. There is mild-moderate pulmonary HTN. History of Hypertension -Lopressor 50mg PO Q12H -Norvasc 5mg PO daily Elevated LFTs -AST/ALT: 715/589 -Haldol discontinued -F/U abdominal US Plan to be discussed with Dr Walter Espinosa DO PGY-2 <Lit Watson - Last Filed: 11/26/17 06:37> Meds - Medications Medications: Current Medications Amlodipine Besylate (Norvasc) 5 mg PO DAILY [facility] Last Admin: 11/25/17 10:33 Dose: 5 mg Sodium Chloride (Sodium Chloride 0.9%) 1,000 mls @ 75 mls/hr IV .[id number] [facility] Last Admin: 11/26/17 05:46 Dose: Not Given Dexmedetomidine HCl 400 mcg/ (Sodium Chloride) 100 mls @ 5.34 mls/hr IV TITR PRN; Protocol; 0.2 MCG/KG/HR PRN Reason: Agitation Last Titration: 11/25/17 11:00 Dose: 0 mcg/kg/hr, 0 mls/hr Metoprolol Tartrate (Lopressor) 50 mg PO Q12 [facility] Last Admin: 11/25/17 22:19 Dose: 50 mg Pantoprazole Sodium (Protonix Inj) 40 mg IVP DAILY [facility] Last Admin: 11/25/17 10:33 Dose: 40 mg Results - Vital Signs Recent Vital Signs: Last Vital Signs Temp 98.3 F 11/26/17 04:00 Pulse 95 H 11/26/17 05:00 Resp 13 11/26/17 05:00 BP 137/97 H 11/26/17 04:58 Pulse Ox 93 L 11/26/17 05:00 - Labs Result Diagrams: 11/26/17 06:21 11/25/17 20:49 Labs: Laboratory Results - last 24 hr 11/25/17 11/25/17 11/25/17 08:25 11:26 16:14 WBC RBC Hgb Hct MCV MCH MCHC RDW Plt Count MPV Neut % (Auto) Lymph % (Auto) Long % (Auto) Eos % (Auto) Baso % (Auto) Neut # (Auto) Lymph # (Auto) Long # (Auto) Eos # (Auto) Baso # (Auto) Sodium Potassium Chloride Carbon Dioxide Anion Gap BUN Creatinine Est GFR ( Amer) Est GFR (Non-Af Amer) POC Glucose (mg/dL) 110 111 H 93 Random Glucose Calcium Total Bilirubin AST ALT Alkaline Phosphatase Total Protein Albumin Globulin Albumin/Globulin Ratio 11/25/17 11/26/17 20:49 06:21 WBC 8.3 RBC 5.36 H Hgb 15.7 Hct 46.8 MCV 87.3 MCH 29.3 MCHC 33.5 RDW 13.9 Plt Count 177 MPV 8.0 Neut % (Auto) 76.5 H Lymph % (Auto) 11.7 L Long % (Auto) 9.8 Eos % (Auto) 1.7 Baso % (Auto) 0.3 Neut # (Auto) 6.4 Lymph # (Auto) 1.0 Long # (Auto) 0.8 Eos # (Auto) 0.1 Baso # (Auto) 0.0 Sodium 140 Potassium 3.8 Chloride 105 Carbon Dioxide 24 Anion Gap 15 BUN 13 Creatinine 0.6 L Est GFR ( Amer) > 60 Est GFR (Non-Af Amer) > 60 POC Glucose (mg/dL) Random Glucose 83 Calcium 8.4 L Total Bilirubin 2.6 H AST 23 ALT 36 Alkaline Phosphatase 111 Total Protein 6.1 L Albumin 3.4 L Globulin 2.7 Albumin/Globulin Ratio 1.2 Assessment & Plan - Assessment and Plan (Free Text) Assessment: Patient seen and evaluated personally by me. Plan of care d/w the medical lab director and as documented
--- NOTE | 2017-11-25 10:14 | CP.CCUPN ---
<Afua Storey P - Last Filed: 11/25/17 13:50> CCU Subjective - Physician Review Subjective (Free Text): PGY-1 Critical care progress note. Patient seen and examined at bedside. Patient oriented to person, disoriented to place and time. She is speaking and answering questions, and states that she wants to go to the bathroom. She remains agitated, arguing with daughter and staff, attempting to get out of bed. CCU Objective - Vital Signs / Intake & Output Vital Signs (Last 4 hours): Vital Signs Pulse BP Pulse Ox 11/25/17 06:42 60 136/74 100 Intake and Output (Last 8hrs): Intake & Output 11/24/17 11/25/17 11/25/17 22:59 06:59 14:59 Intake Total 1419 908.7 Output Total 1000 500 Balance 419 408.7 Weight 235 lb Intake: IV 370 159 Intake, IV Amount 1049 749.7 Left Antecubital 44 149.7 Left Forearm 300 Left Wrist 705 600 Output: Urine 1000 500 Urine, Voided 1000 500 - Physical Exam Head: Positive for: Atraumatic, Normocephalic Pupils: Positive for: PERRL Extroacular Muscles: Positive for: EOMI Neck: Positive for: Normal Range of Motion Respiratory/Chest: Positive for: Clear to Auscultation. Negative for: Wheezes, Retracting, Rhonchi Cardiovascular: Positive for: Regular Rate and Rhythm, Normal S1, S2 Abdomen: Positive for: Normal Bowel Sounds. Negative for: Tenderness, Rebound, Guarding Lower Extremity: Negative for: Edema, CALF TENDERNESS Neurological: Positive for: Other (Patient with normal speech, moving all extremities, 5/5 muscle strength. ) Skin: Positive for: Warm, Dry Psychiatric: Positive for: Other (Patient oriented x1 (place) only. Pt agitated and argumentative. ) - Medications Active Medications: Active Medications Generic Name Dose Route Start Last Admin Trade Name Freq PRN Reason Stop Dose Admin Amlodipine Besylate 5 mg 11/25/17 10:00 Norvasc PO DAILY KARO Sodium Chloride 1,000 mls @ 75 mls/hr 11/24/17 13:30 11/25/17 03:07 Sodium Chloride 0.9% IV Not Given .[id number] KARO Dexmedetomidine HCl 400 mcg/ 100 mls @ 5.34 mls/hr 11/24/17 22:00 11/25/17 05 :41 Sodium Chloride IV 0.5 mcg/kg/hr TITR PRN 13.36 mls/hr Agitation Titration Protocol 0.2 MCG/KG/HR Metoprolol Tartrate 50 mg 11/25/17 18:00 Lopressor IVP BID KARO Pantoprazole Sodium 40 mg 11/25/17 10:00 Protonix Inj IVP DAILY KARO - Patient Studies Lab Studies: Lab Studies 11/25/17 11/25/17 11/24/17 Range/Units 05:57 05:57 21:05 WBC 6.5 (4.8-10.8) K/uL RBC 5.25 H (3.80-5.20) Mil/uL Hgb 15.3 (11.0-16.0) g/dL Hct 45.8 (34.0-47.0) % MCV 87.1 (81.0-99.0) fL MCH 29.1 (27.0-31.0) pg MCHC 33.4 (33.0-37.0) g/dL RDW 14.0 (11.5-14.5) % Plt Count 135 (130-400) K/uL MPV 7.9 (7.2-11.7) fL Neut % (Auto) 76.8 H (50.0-75.0) % Lymph % (Auto) 12.6 L (20.0-40.0) % Real % (Auto) 8.6 (0.0-10.0) % Eos % (Auto) 1.7 (0.0-4.0) % Baso % (Auto) 0.3 (0.0-2.0) % Neut # (Auto) 5.0 (1.8-7.0) K/uL Lymph # (Auto) 0.8 L (1.0-4.3) K/uL Real # (Auto) 0.6 (0.0-0.8) K/uL Eos # (Auto) 0.1 (0.0-0.7) K/uL Baso # (Auto) 0.0 (0.0-0.2) K/uL Neutrophils % (Manual) (50-75) % Band Neutrophils % (0-2) % Lymphocytes % (Manual) (20-40) % Monocytes % (Manual) (0-10) % Platelet Estimate (NORMAL) Ovalocytes PT (9.7-12.2) SECONDS INR APTT (21-34) SECONDS Sodium 136 (132-148) mmol/L Potassium 5.1 (3.6-5.2) mmol/L Chloride 103 (98-107) mmol/L Carbon Dioxide 20 L (22-30) mmol/L Anion Gap 18 (10-20) BUN 25 H (7-17) mg/dL Creatinine 0.8 (0.7-1.2) mg/dL Est GFR ( Amer) > 60 Est GFR (Non-Af Amer) > 60 POC Glucose (mg/dL) 133 H (65-110) mg/dL Random Glucose 131 H (65-105) mg/dL Hemoglobin A1c (4.2-6.5) % Calcium 8.7 (8.6-10.4) mg/dl Phosphorus 3.8 (2.5-4.5) mg/dL Magnesium 2.2 (1.6-2.3) mg/dL Total Bilirubin 1.7 H (0.2-1.3) mg/dL AST 715 H D (14-36) U/L ALT 589 H D (9-52) U/L Alkaline Phosphatase 268 H D (38-126) U/L Total Creatine Kinase 23 L (30-135) U/L CK-MB (Mass) 2.08 (0.0-3.38) ng/mL Troponin I 0.0130 (0.00-0.120) ng/mL Total Protein 5.5 L (6.3-8.3) g/dL Albumin 3.2 L (3.5-5.0) g/dL Globulin 2.3 (2.2-3.9) gm/dL Albumin/Globulin Ratio 1.3 (1.0-2.1) Triglycerides (0-149) mg/dL Cholesterol (0-199) mg/dL LDL Cholesterol Direct (0-129) mg/dL HDL Cholesterol (30-70) mg/dL Blood Type Antibody Screen 11/24/17 11/24/17 11/24/17 Range/Units 19:15 16:23 10:41 WBC (4.8-10.8) K/uL RBC (3.80-5.20) Mil/uL Hgb (11.0-16.0) g/dL Hct (34.0-47.0) % MCV (81.0-99.0) fL MCH (27.0-31.0) pg MCHC (33.0-37.0) g/dL RDW (11.5-14.5) % Plt Count (130-400) K/uL MPV (7.2-11.7) fL Neut % (Auto) (50.0-75.0) % Lymph % (Auto) (20.0-40.0) % Real % (Auto) (0.0-10.0) % Eos % (Auto) (0.0-4.0) % Baso % (Auto) (0.0-2.0) % Neut # (Auto) (1.8-7.0) K/uL Lymph # (Auto) (1.0-4.3) K/uL Real # (Auto) (0.0-0.8) K/uL Eos # (Auto) (0.0-0.7) K/uL Baso # (Auto) (0.0-0.2) K/uL Neutrophils % (Manual) (50-75) % Band Neutrophils % (0-2) % Lymphocytes % (Manual) (20-40) % Monocytes % (Manual) (0-10) % Platelet Estimate (NORMAL) Ovalocytes PT (9.7-12.2) SECONDS INR APTT (21-34) SECONDS Sodium (132-148) mmol/L Potassium (3.6-5.2) mmol/L Chloride (98-107) mmol/L Carbon Dioxide (22-30) mmol/L Anion Gap (10-20) BUN (7-17) mg/dL Creatinine (0.7-1.2) mg/dL Est GFR ( Amer) Est GFR (Non-Af Amer) POC Glucose (mg/dL) 113 H (65-110) mg/dL Random Glucose (65-105) mg/dL Hemoglobin A1c (4.2-6.5) % Calcium (8.6-10.4) mg/dl Phosphorus (2.5-4.5) mg/dL Magnesium (1.6-2.3) mg/dL Total Bilirubin (0.2-1.3) mg/dL AST (14-36) U/L ALT (9-52) U/L Alkaline Phosphatase (38-126) U/L Total Creatine Kinase 29 L (30-135) U/L CK-MB (Mass) 1.43 (0.0-3.38) ng/mL Troponin I < 0.0120 (0.00-0.120) ng/mL Total Protein (6.3-8.3) g/dL Albumin (3.5-5.0) g/dL Globulin (2.2-3.9) gm/dL Albumin/Globulin Ratio (1.0-2.1) Triglycerides (0-149) mg/dL Cholesterol (0-199) mg/dL LDL Cholesterol Direct (0-129) mg/dL HDL Cholesterol (30-70) mg/dL Blood Type AB POSITIVE Antibody Screen Negative 11/24/17 11/24/17 11/24/17 Range/Units 10:40 10:34 10:34 WBC (4.8-10.8) K/uL RBC (3.80-5.20) Mil/uL Hgb (11.0-16.0) g/dL Hct (34.0-47.0) % MCV (81.0-99.0) fL MCH (27.0-31.0) pg MCHC (33.0-37.0) g/dL RDW (11.5-14.5) % Plt Count (130-400) K/uL MPV (7.2-11.7) fL Neut % (Auto) (50.0-75.0) % Lymph % (Auto) (20.0-40.0) % Real % (Auto) (0.0-10.0) % Eos % (Auto) (0.0-4.0) % Baso % (Auto) (0.0-2.0) % Neut # (Auto) (1.8-7.0) K/uL Lymph # (Auto) (1.0-4.3) K/uL Real # (Auto) (0.0-0.8) K/uL Eos # (Auto) (0.0-0.7) K/uL Baso # (Auto) (0.0-0.2) K/uL Neutrophils % (Manual) (50-75) % Band Neutrophils % (0-2) % Lymphocytes % (Manual) (20-40) % Monocytes % (Manual) (0-10) % Platelet Estimate (NORMAL) Ovalocytes PT 14.7 H (9.7-12.2) SECONDS INR 1.3 APTT 32 (21-34) SECONDS Sodium 141 (132-148) mmol/L Potassium 4.3 (3.6-5.2) mmol/L Chloride 102 (98-107) mmol/L Carbon Dioxide 28 (22-30) mmol/L Anion Gap 16 (10-20) BUN 19 H (7-17) mg/dL Creatinine 0.8 (0.7-1.2) mg/dL Est GFR ( Amer) > 60 Est GFR (Non-Af Amer) > 60 POC Glucose (mg/dL) (65-110) mg/dL Random Glucose 156 H (65-105) mg/dL Hemoglobin A1c 5.6 (4.2-6.5) % Calcium 9.0 (8.6-10.4) mg/dl Phosphorus (2.5-4.5) mg/dL Magnesium (1.6-2.3) mg/dL Total Bilirubin 2.2 H (0.2-1.3) mg/dL AST 28 (14-36) U/L ALT 29 (9-52) U/L Alkaline Phosphatase 124 (38-126) U/L Total Creatine Kinase (30-135) U/L CK-MB (Mass) (0.0-3.38) ng/mL Troponin I < 0.0120 (0.00-0.120) ng/mL Total Protein 7.1 (6.3-8.3) g/dL Albumin 3.8 (3.5-5.0) g/dL Globulin 3.2 (2.2-3.9) gm/dL Albumin/Globulin Ratio 1.2 (1.0-2.1) Triglycerides 56 D (0-149) mg/dL Cholesterol 126 (0-199) mg/dL LDL Cholesterol Direct 67 (0-129) mg/dL HDL Cholesterol 35 (30-70) mg/dL Blood Type Antibody Screen 11/24/17 11/24/17 Range/Units 10:34 10:18 WBC 8.4 (4.8-10.8) K/uL RBC 5.22 H (3.80-5.20) Mil/uL Hgb 15.6 D (11.0-16.0) g/dL Hct 45.7 (34.0-47.0) % MCV 87.5 D (81.0-99.0) fL MCH 29.9 (27.0-31.0) pg MCHC 34.2 (33.0-37.0) g/dL RDW 14.5 (11.5-14.5) % Plt Count 162 (130-400) K/uL MPV 7.9 (7.2-11.7) fL Neut % (Auto) 89.3 H (50.0-75.0) % Lymph % (Auto) 7.6 L (20.0-40.0) % Real % (Auto) 2.6 (0.0-10.0) % Eos % (Auto) 0.1 (0.0-4.0) % Baso % (Auto) 0.4 (0.0-2.0) % Neut # (Auto) 7.5 H (1.8-7.0) K/uL Lymph # (Auto) 0.6 L (1.0-4.3) K/uL Real # (Auto) 0.2 (0.0-0.8) K/uL Eos # (Auto) 0.0 (0.0-0.7) K/uL Baso # (Auto) 0.0 (0.0-0.2) K/uL Neutrophils % (Manual) 86 H (50-75) % Band Neutrophils % 2 (0-2) % Lymphocytes % (Manual) 9 L (20-40) % Monocytes % (Manual) 3 (0-10) % Platelet Estimate Normal (NORMAL) Ovalocytes Slight PT (9.7-12.2) SECONDS INR APTT (21-34) SECONDS Sodium (132-148) mmol/L Potassium (3.6-5.2) mmol/L Chloride (98-107) mmol/L Carbon Dioxide (22-30) mmol/L Anion Gap (10-20) BUN (7-17) mg/dL Creatinine (0.7-1.2) mg/dL Est GFR ( Amer) Est GFR (Non-Af Amer) POC Glucose (mg/dL) 141 H (65-110) mg/dL Random Glucose (65-105) mg/dL Hemoglobin A1c (4.2-6.5) % Calcium (8.6-10.4) mg/dl Phosphorus (2.5-4.5) mg/dL Magnesium (1.6-2.3) mg/dL Total Bilirubin (0.2-1.3) mg/dL AST (14-36) U/L ALT (9-52) U/L Alkaline Phosphatase (38-126) U/L Total Creatine Kinase (30-135) U/L CK-MB (Mass) (0.0-3.38) ng/mL Troponin I (0.00-0.120) ng/mL Total Protein (6.3-8.3) g/dL Albumin (3.5-5.0) g/dL Globulin (2.2-3.9) gm/dL Albumin/Globulin Ratio (1.0-2.1) Triglycerides (0-149) mg/dL Cholesterol (0-199) mg/dL LDL Cholesterol Direct (0-129) mg/dL HDL Cholesterol (30-70) mg/dL Blood Type Antibody Screen Laboratory Results - last 24 hr 11/24/17 11/24/17 11/24/17 10:18 10:34 10:34 WBC 8.4 RBC 5.22 H Hgb 15.6 D Hct 45.7 MCV 87.5 D MCH 29.9 MCHC 34.2 RDW 14.5 Plt Count 162 MPV 7.9 Neut % (Auto) 89.3 H Lymph % (Auto) 7.6 L Real % (Auto) 2.6 Eos % (Auto) 0.1 Baso % (Auto) 0.4 Neut # (Auto) 7.5 H Lymph # (Auto) 0.6 L Real # (Auto) 0.2 Eos # (Auto) 0.0 Baso # (Auto) 0.0 Neutrophils % (Manual) 86 H Band Neutrophils % 2 Lymphocytes % (Manual) 9 L Monocytes % (Manual) 3 Platelet Estimate Normal Ovalocytes Slight PT 14.7 H INR 1.3 APTT 32 Sodium Potassium Chloride Carbon Dioxide Anion Gap BUN Creatinine Est GFR ( Amer) Est GFR (Non-Af Amer) POC Glucose (mg/dL) 141 H Random Glucose Hemoglobin A1c Calcium Phosphorus Magnesium Total Bilirubin AST ALT Alkaline Phosphatase Total Creatine Kinase CK-MB (Mass) Troponin I Total Protein Albumin Globulin Albumin/Globulin Ratio Triglycerides Cholesterol LDL Cholesterol Direct HDL Cholesterol Blood Type Antibody Screen 11/24/17 11/24/17 11/24/17 10:34 10:40 10:41 WBC RBC Hgb Hct MCV MCH MCHC RDW Plt Count MPV Neut % (Auto) Lymph % (Auto) Real % (Auto) Eos % (Auto) Baso % (Auto) Neut # (Auto) Lymph # (Auto) Real # (Auto) Eos # (Auto) Baso # (Auto) Neutrophils % (Manual) Band Neutrophils % Lymphocytes % (Manual) Monocytes % (Manual) Platelet Estimate Ovalocytes PT INR APTT Sodium 141 Potassium 4.3 Chloride 102 Carbon Dioxide 28 Anion Gap 16 BUN 19 H Creatinine 0.8 Est GFR ( Amer) > 60 Est GFR (Non-Af Amer) > 60 POC Glucose (mg/dL) Random Glucose 156 H Hemoglobin A1c 5.6 Calcium 9.0 Phosphorus Magnesium Total Bilirubin 2.2 H AST 28 ALT 29 Alkaline Phosphatase 124 Total Creatine Kinase CK-MB (Mass) Troponin I < 0.0120 Total Protein 7.1 Albumin 3.8 Globulin 3.2 Albumin/Globulin Ratio 1.2 Triglycerides 56 D Cholesterol 126 LDL Cholesterol Direct 67 HDL Cholesterol 35 Blood Type AB POSITIVE Antibody Screen Negative 11/24/17 11/24/17 11/24/17 16:23 19:15 21:05 WBC RBC Hgb Hct MCV MCH MCHC RDW Plt Count MPV Neut % (Auto) Lymph % (Auto) Real % (Auto) Eos % (Auto) Baso % (Auto) Neut # (Auto) Lymph # (Auto) Real # (Auto) Eos # (Auto) Baso # (Auto) Neutrophils % (Manual) Band Neutrophils % Lymphocytes % (Manual) Monocytes % (Manual) Platelet Estimate Ovalocytes PT INR APTT Sodium Potassium Chloride Carbon Dioxide Anion Gap BUN Creatinine Est GFR ( Amer) Est GFR (Non-Af Amer) POC Glucose (mg/dL) 113 H 133 H Random Glucose Hemoglobin A1c Calcium Phosphorus Magnesium Total Bilirubin AST ALT Alkaline Phosphatase Total Creatine Kinase 29 L CK-MB (Mass) 1.43 Troponin I < 0.0120 Total Protein Albumin Globulin Albumin/Globulin Ratio Triglycerides Cholesterol LDL Cholesterol Direct HDL Cholesterol Blood Type Antibody Screen 11/25/17 11/25/17 05:57 05:57 WBC 6.5 RBC 5.25 H Hgb 15.3 Hct 45.8 MCV 87.1 MCH 29.1 MCHC 33.4 RDW 14.0 Plt Count 135 MPV 7.9 Neut % (Auto) 76.8 H Lymph % (Auto) 12.6 L Real % (Auto) 8.6 Eos % (Auto) 1.7 Baso % (Auto) 0.3 Neut # (Auto) 5.0 Lymph # (Auto) 0.8 L Real # (Auto) 0.6 Eos # (Auto) 0.1 Baso # (Auto) 0.0 Neutrophils % (Manual) Band Neutrophils % Lymphocytes % (Manual) Monocytes % (Manual) Platelet Estimate Ovalocytes PT INR APTT Sodium 136 Potassium 5.1 Chloride 103 Carbon Dioxide 20 L Anion Gap 18 BUN 25 H Creatinine 0.8 Est GFR ( Amer) > 60 Est GFR (Non-Af Amer) > 60 POC Glucose (mg/dL) Random Glucose 131 H Hemoglobin A1c Calcium 8.7 Phosphorus 3.8 Magnesium 2.2 Total Bilirubin 1.7 H AST 715 H D ALT 589 H D Alkaline Phosphatase 268 H D Total Creatine Kinase 23 L CK-MB (Mass) 2.08 Troponin I 0.0130 Total Protein 5.5 L Albumin 3.2 L Globulin 2.3 Albumin/Globulin Ratio 1.3 Triglycerides Cholesterol LDL Cholesterol Direct HDL Cholesterol Blood Type Antibody Screen EKG/Cardiology Studies: Cardiology / EKG Studies 11/24/17 10:21 ELECTROCARDIOGRAM Stat Comment: Mode Of Transportation: BED Reason For Exam: code stroke Fingerstick Blood Sugar Results: 133 Review of Systems - Review of Systems Systems not reviewed;Unavailable: Dementia Critical Care Progress Note - Prophylaxis GI Prophylaxis GI: PPI - Prophylaxis DVT Prophylaxis DVT: Not Indicated - Nutrition Nutrition: Nutrition Category Date Time Status NPO Diet [DIET] Diets 11/24/17 Dinner Active Assessment/Plan - Assessment and Plan (Free Text) Plan: Patient seen and examined at bedside. Her mental status is improving, however she is not oriented to place or time. She is speaking and answering questions, and states that she wants to go to the bathroom. She remains agitated and shouts at ICU staff. Neuro: - Repeat Head CT: Little change in 1.9x1.7 cm acute hematoma with mild surrounding vasogenic edema in the R paramedian superior cerebellar hemisphere. No midline shift, obstructive hydrocephalus or herniation. (see full report) -Dr. Perla, neurosurgery consulted. Help appreciated. Surgery unlikely at this time. - MRA head and neck without contrast ordered - Precedex drip for agitation overnight - oriented to person, disoriented to time and place Cardiovascular: - Control blood pressure, SBP <140 - Restarted home medications: Amlodipine 5mg daily and Lopressor 50mg q12h - IVF - Wire Technician Dr. Watson consulted. Respiratory: - maintain SpO2 > 95% - CXR 11/24/17: no active disease Renal: - BUN/Cr: 25/0.8 Infectious disease: - WBC 6.5 (normal) Hematology: - H/H: 15.3/45.8 (stable) Gastrointestinal: - AST/ALT 715/589, markedly elevated from yesterday (). - Alk phos 268 (elevated from normal value of 124 yesterday) -Elevated liver enzymes possibly due to medication effect. Discontinued Haldol. Will continue to follow liver enzymes. Abdominal ultrasound ordered. - Abdominal ultrasound (11/25): pending Endocrine - maintain euglycemia Prophylaxis: - Protonix 40mg IVP daily - chemical VTE prophylaxis contraindicated - SCDs - PT/OT Discussed with Dr. Clay Dutton. <Amparo Dutton - Last Filed: 11/26/17 17:49> CCU Objective - Vital Signs / Intake & Output Vital Signs (Last 4 hours): Vital Signs Temp Pulse Resp BP Pulse Ox 11/26/17 15:00 97.5 F L 87 20 156/105 H 99 11/26/17 14:00 84 22 151/100 H 92 L 11/26/17 13:58 151/100 H Intake and Output (Last 8hrs): Intake & Output 11/26/17 11/26/17 11/26/17 06:59 14:59 22:59 Intake Total 600 1160 75 Output Total 800 1200 Balance -200 -40 75 Weight 242 lb 8.136 oz Intake: Intake, IV Amount 600 600 75 Left Wrist 600 600 75 Oral 560 Output: Urine 800 1200 Urine, Voided 800 1200 Other: # Voids Urine, Voided 1 - Medications Active Medications: Active Medications Generic Name Dose Route Start Last Admin Trade Name Freq PRN Reason Stop Dose Admin Amlodipine Besylate 5 mg 11/25/17 10:00 11/26/17 09:39 Norvasc PO 5 mg DAILY KARO Administration Hydralazine HCl 10 mg 11/26/17 12:36 11/26/17 14:00 Apresoline PO Not Given QID [facility] Sodium Chloride 1,000 mls @ 75 mls/hr 11/24/17 13:30 11/26/17 13:30 Sodium Chloride 0.9% IV 75 mls/hr .[id number] KARO Administration Metoprolol Tartrate 50 mg 11/25/17 22:00 11/26/17 09:39 Lopressor PO 50 mg Q12 KARO Administration Pantoprazole Sodium 40 mg 11/25/17 10:00 11/26/17 09:39 Protonix Inj IVP 40 mg DAILY KARO Administration - Patient Studies Lab Studies: Microbiology Studies 11/24/17 14:45 MRSA Culture (Admit) - Final Naris MRSA NOT DETECTED Lab Studies 11/26/17 11/26/17 11/25/17 Range/Units 06:21 06:17 20:49 WBC 8.3 (4.8-10.8) K/uL RBC 5.36 H (3.80-5.20) Mil/uL Hgb 15.7 (11.0-16.0) g/dL Hct 46.8 (34.0-47.0) % MCV 87.3 (81.0-99.0) fL MCH 29.3 (27.0-31.0) pg MCHC 33.5 (33.0-37.0) g/dL RDW 13.9 (11.5-14.5) % Plt Count 177 (130-400) K/uL MPV 8.0 (7.2-11.7) fL Neut % (Auto) 76.5 H (50.0-75.0) % Lymph % (Auto) 11.7 L (20.0-40.0) % Real % (Auto) 9.8 (0.0-10.0) % Eos % (Auto) 1.7 (0.0-4.0) % Baso % (Auto) 0.3 (0.0-2.0) % Neut # (Auto) 6.4 (1.8-7.0) K/uL Lymph # (Auto) 1.0 (1.0-4.3) K/uL Real # (Auto) 0.8 (0.0-0.8) K/uL Eos # (Auto) 0.1 (0.0-0.7) K/uL Baso # (Auto) 0.0 (0.0-0.2) K/uL Sodium 142 140 (132-148) mmol/L Potassium 3.7 3.8 (3.6-5.2) mmol/L Chloride 103 105 (98-107) mmol/L Carbon Dioxide 26 24 (22-30) mmol/L Anion Gap 17 15 (10-20) BUN 10 13 (7-17) mg/dL Creatinine 0.6 L 0.6 L (0.7-1.2) mg/dL Est GFR ( Amer) > 60 > 60 Est GFR (Non-Af Amer) > 60 > 60 Random Glucose 101 83 (65-105) mg/dL Calcium 8.6 8.4 L (8.6-10.4) mg/dl Phosphorus 3.1 (2.5-4.5) mg/dL Magnesium 1.6 (1.6-2.3) mg/dL Total Bilirubin 3.0 H 2.6 H (0.2-1.3) mg/dL AST 31 23 (14-36) U/L ALT 26 36 (9-52) U/L Alkaline Phosphatase 100 111 (38-126) U/L Total Protein 6.8 6.1 L (6.3-8.3) g/dL Albumin 3.5 3.4 L (3.5-5.0) g/dL Globulin 3.3 2.7 (2.2-3.9) gm/dL Albumin/Globulin Ratio 1.1 1.2 (1.0-2.1) Laboratory Results - last 24 hr 11/25/17 11/26/17 11/26/17 20:49 06:17 06:21 WBC 8.3 RBC 5.36 H Hgb 15.7 Hct 46.8 MCV 87.3 MCH 29.3 MCHC 33.5 RDW 13.9 Plt Count 177 MPV 8.0 Neut % (Auto) 76.5 H Lymph % (Auto) 11.7 L Real % (Auto) 9.8 Eos % (Auto) 1.7 Baso % (Auto) 0.3 Neut # (Auto) 6.4 Lymph # (Auto) 1.0 Real # (Auto) 0.8 Eos # (Auto) 0.1 Baso # (Auto) 0.0 Sodium 140 142 Potassium 3.8 3.7 Chloride 105 103 Carbon Dioxide 24 26 Anion Gap 15 17 BUN 13 10 Creatinine 0.6 L 0.6 L Est GFR ( Amer) > 60 > 60 Est GFR (Non-Af Amer) > 60 > 60 Random Glucose 83 101 Calcium 8.4 L 8.6 Phosphorus 3.1 Magnesium 1.6 Total Bilirubin 2.6 H 3.0 H AST 23 31 ALT 36 26 Alkaline Phosphatase 111 100 Total Protein 6.1 L 6.8 Albumin 3.4 L 3.5 Globulin 2.7 3.3 Albumin/Globulin Ratio 1.2 1.1 Critical Care Progress Note - Nutrition Nutrition: Nutrition Category Date Time Status Heart Healthy Diet [DIET] Diets 11/25/17 Lunch Active Assessment/Plan - Assessment and Plan (Free Text) Plan: ABove patient seen and examined at bedside. patient with h/o ICH admitted to ICU for observation. repeat CT head pending -delirium: continue precedex -monitor to keep SBP <140 - Date & Time Date: 11/25/17 Time: 19:00
--- NOTE | 2017-11-25 11:54 | CP.PCM.PN ---
Subjective - Date & Time of Evaluation Date of Evaluation: 11/25/17 Time of Evaluation: 11:54 - Subjective Subjective: Patient this morning was responding. She is answering questions. But mostly confused. She is moving all 4 extremities. Patient has a mittens in the both hands. Patient is also being watched one-to-one. Currently receiving Precedex intravenous drip to control agitation. Blood pressure is controlled well. On examination: Pupils reactive. Clinical examination significantly noted for altered mental status. Agitation. Confusion. Repeat CAT scan showing no new changes, cerebellar bleeding unchanged, no mass- effect noted. Liver enzymes is abnormally elevated, unclear, will do sonogram. Glucose monitoring needed. Patient is unable to start oral feeding at this time Will get the bedside sonogram. To rule out cholecystitis. Patient is a 81-year-old female now admitted with cerebellar bleeding. Patient has atrial fibrillation. Advanced dementia. Spoke to the patient's daughter today. We will continue the neuro watch. Repeat CT scan. Will follow the patient. Objective - Vital Signs/Intake and Output Vital Signs (last 24 hours): Temp Pulse Resp BP Pulse Ox 98 F 62 20 136/74 100 11/25/17 04:00 11/25/17 10:15 11/25/17 10:15 11/25/17 06:42 11/25/17 06:42 Intake and Output: 11/25/17 11/25/17 06:59 18:59 Intake Total 1732.7 394.6 Output Total 500 Balance 1232.7 394.6 - Medications Medications: Current Medications Amlodipine Besylate (Norvasc) 5 mg PO DAILY [facility] Last Admin: 11/25/17 10:33 Dose: 5 mg Sodium Chloride (Sodium Chloride 0.9%) 1,000 mls @ 75 mls/hr IV .[id number] [facility] Last Admin: 11/25/17 08:45 Dose: 75 mls/hr Dexmedetomidine HCl 400 mcg/ (Sodium Chloride) 100 mls @ 5.34 mls/hr IV TITR PRN; Protocol; 0.2 MCG/KG/HR PRN Reason: Agitation Last Admin: 11/25/17 08:46 Dose: 0.5 mcg/kg/hr, 13.36 mls/hr Metoprolol Tartrate (Lopressor) 50 mg PO Q12 [facility] Pantoprazole Sodium (Protonix Inj) 40 mg IVP DAILY [facility] Last Admin: 11/25/17 10:33 Dose: 40 mg - Labs Labs: 11/25/17 05:57 11/25/17 05:57 PT 14.7 SECONDS (9.7-12.2) H 11/24/17 10:34 INR 1.3 11/24/17 10:34 APTT 32 SECONDS (21-34) 11/24/17 10:34
--- NOTE | 2017-11-25 12:44 | CP.PCM.PN ---
Subjective - Date & Time of Evaluation Date of Evaluation: 11/25/17 Time of Evaluation: 12:42 - Subjective Subjective: ct unchanged highly doubt if will need surgery call back if MS changes Objective - Vital Signs/Intake and Output Vital Signs (last 24 hours): Temp Pulse Resp BP Pulse Ox 98 F 57 L 14 151/89 H 100 11/25/17 04:00 11/25/17 12:25 11/25/17 12:25 11/25/17 12:26 11/25/17 06:42 Intake and Output: 11/25/17 11/25/17 06:59 18:59 Intake Total 1732.7 394.6 Output Total 500 Balance 1232.7 394.6 - Medications Medications: Current Medications Amlodipine Besylate (Norvasc) 5 mg PO DAILY [facility] Last Admin: 11/25/17 10:33 Dose: 5 mg Sodium Chloride (Sodium Chloride 0.9%) 1,000 mls @ 75 mls/hr IV .[id number] [facility] Last Admin: 11/25/17 08:45 Dose: 75 mls/hr Dexmedetomidine HCl 400 mcg/ (Sodium Chloride) 100 mls @ 5.34 mls/hr IV TITR PRN; Protocol; 0.2 MCG/KG/HR PRN Reason: Agitation Last Admin: 11/25/17 08:46 Dose: 0.5 mcg/kg/hr, 13.36 mls/hr Metoprolol Tartrate (Lopressor) 50 mg PO Q12 [facility] Pantoprazole Sodium (Protonix Inj) 40 mg IVP DAILY [facility] Last Admin: 11/25/17 10:33 Dose: 40 mg - Labs Labs: 11/25/17 05:57 11/25/17 05:57 PT 14.7 SECONDS (9.7-12.2) H 11/24/17 10:34 INR 1.3 11/24/17 10:34 APTT 32 SECONDS (21-34) 11/24/17 10:34
--- NOTE | 2017-11-25 14:56 | US ---
Abdominal ultrasound History: Cholecystitis. Comparison: None available. Technique: Real-time sonography was performed through the abdomen. Findings: Liver: 16.9 centimeters in length. Increased echogenicity of the hepatic parenchymal cortex suggestive for fatty infiltration versus hepatic parenchymal disease. Clinical correlation. Gallbladder: Echogenic debris suggestive for sludge and or calculi. Normal wall thickness of 2.6 millimeters. Negative sonographic Diaz's sign. Common bile duct measures 7.2 millimeters, prominent. Pancreas not well visualized. Spleen measures 11.4 centimeters in length, within normal limits. Limited visualization of the aorta and IVC. Right kidney: Not well visualized. 10.7 x 4.4 x 4.8 centimeters. No calculi or hydronephrosis. Left Kidney: 10.7 x 5.4 x 4.4 centimeters. No calculi or hydronephrosis. Limited portable study. Patient was unable to turn and breath hold. Impression: Limited portable study. Patient was unable to turn and breath hold. Increased echogenicity of the hepatic parenchymal cortex suggestive for fatty infiltration versus hepatic parenchymal disease. Clinical correlation. Echogenic debris suggestive for sludge and or calculi in the gallbladder. Normal wall thickness of 2.6 millimeters. Negative sonographic Diaz's sign. Prominent common bile duct measuring 7.2 millimeters. Clinical correlation. Pancreas and right kidney not well visualized. Aorta not well visualized. Correlation with CT scan of the abdomen and pelvis may be helpful for further evaluation if clinically indicated.
--- NOTE | 2017-11-25 18:35 | CARD ---
APPROVED REPORT Date of service: 11/25/2017 EXAM: Two-dimensional and M-mode echocardiogram with Doppler and color Doppler. Other Information Quality : GoodRhythm : INDICATION Atrial Fibrillation 2D DIMENSIONS IVSd1.1 (0.7-1.1cm)LVDd5.0 (3.9-5.9cm) PWd0.9 (0.7-1.1cm)LVDs3.0 (2.5-4.0cm) FS (%) 39.5 %LVEF (%)69.8 (>50%) M-Mode DIMENSIONS RVDd0.98 (2.1-3.2cm)Left Atrium (MM)4.93 (2.5-4.0cm) IVSd1.20 (0.7-1.1cm)Aortic Root3.35 (2.2-3.7cm) LVDd5.73 (4.0-5.6cm)Aortic Cusp Exc.2.13 (1.5-2.0cm) PWd1.17 (0.7-1.1cm)FS (%) 41 % LVDs3.35 (2.0-3.8cm)LVEF (%)72 (>50%) Mitral Valve MV E Jctdzscn60.9cm/sMV A Xvvsqayx62.5cm/sE/A ratio2.4 TDI E/Lateral E'0.0E/Medial E'0.0 Tricuspid Valve TR Peak [id number]/sTR Peak Gr.[id number] LEFT VENTRICLE The left ventricle is normal size. There is normal left ventricular wall thickness. The left ventricular systolic function is normal. The left ventricular Bi-plane ejection fraction is within the normal range - 61% There is normal LV segmental wall motion. Normal left atrial pressure by Tissue Doppler RIGHT VENTRICLE The right ventricle is mildly dilated. The right ventricular systolic function is normal. ATRIA The left atrium is moderately dilated. The right atrium is moderately dilated. AORTIC VALVE The aortic valve is normal in structure. No aortic regurgitation is present. MITRAL VALVE The mitral valve is normal in structure. Mitral regurgitation is mild. TRICUSPID VALVE The tricuspid valve is normal in structure. There is mild tricuspid regurgitation. Right ventricular systolic pressure is estimated at less than 30 mmHg. PULMONIC VALVE The pulmonary valve is normal in structure. There is mild pulmonic valvular regurgitation. GREAT VESSELS The aortic root is normal size. The aortic root displays mild sclerocalcific changes. Dilated IVC with poor inspiration collapse is consistent with elevated right atrial pressure. PERICARDIAL EFFUSION There is no pericardial effusion. <Conclusion> The left ventricular systolic function is normal. There is normal LV segmental wall motion. Bi-plane ejection fraction is within the normal range - 61%. Normal left atrial pressure by Tissue Doppler The right ventricular systolic function is normal. Moderate bi-atrial enlargement. Mild mitral, tricuspid and pulmonic regurgitation. Dilated IVC with poor inspiration collapse is consistent with elevated right atrial pressure. There is no pericardial effusion.
[2017-11-25 21:15] LABS: ALB/GLOB RATIO 1.2 (1.0-2.1); ALBUMIN 3.4 g/dL (3.5-5.0); ALT/SGPT 36 U/L (9-52); AST/SGOT 23 U/L (14-36); BLOOD UREA NITROGEN 13 mg/dL (7-17); CALCIUM 8.4 mg/dl (8.6-10.4); GFR AFRICAN-AMERICAN > 60; GFR NON-AFRICAN AMERICAN > 60
[2017-11-26] MEDS: Sodium Chloride 0.9% 1,000 ML IV SCH ×3 (05:46→18:10)
[2017-11-26 06:27] LABS: BASO % 0.3 % (0.0-2.0); EOS # 0.1 K/uL (0.0-0.7); EOS % 1.7 % (0.0-4.0); HEMOGLOBIN 15.7 g/dL (11.0-16.0); LYMPH % 11.7 % (20.0-40.0); MEAN CELL VOLUME 87.3 fL (81.0-99.0); MEAN CORPUSCULAR HEMOGLOBIN 29.3 pg (27.0-31.0); MEAN CORPUSCULAR HGB CONC 33.5 g/dL (33.0-37.0); MONO # 0.8 K/uL (0.0-0.8); MONO % 9.8 % (0.0-10.0); NEUT # 6.4 K/uL (1.8-7.0); NEUT % 76.5 % (50.0-75.0); RBC 5.36 Mil/uL (3.80-5.20); RED CELL DISTRIBUTION WIDTH 13.9 % (11.5-14.5); WHITE BLOOD COUNT 8.3 K/uL (4.8-10.8)
[2017-11-26 06:42] LABS: ALB/GLOB RATIO 1.1 (1.0-2.1); ALBUMIN 3.5 g/dL (3.5-5.0); ALT/SGPT 26 U/L (9-52); AST/SGOT 31 U/L (14-36); BLOOD UREA NITROGEN 10 mg/dL (7-17); CALCIUM 8.6 mg/dl (8.6-10.4); GFR AFRICAN-AMERICAN > 60; GFR NON-AFRICAN AMERICAN > 60
--- NOTE | 2017-11-26 10:38 | CT ---
Date of service: 11/26/2017 PROCEDURE: CT HEAD WITHOUT CONTRAST. HISTORY: rt cerebellar hemorrhagic stroke COMPARISON: Comparison is made to the previous study dated 11/24/2017 TECHNIQUE: Axial computed tomography images were obtained through the head/brain without intravenous contrast. Radiation dose: Total exam DLP = 981.86 mGy-cm. This CT exam was performed using one or more of the following dose reduction techniques: Automated exposure control, adjustment of the mA and/or kV according to patient size, and/or use of iterative reconstruction technique. FINDINGS: HEMORRHAGE: Again noted is right parenchymal hemorrhage in the right paramedian superior cerebellar hemisphere surrounding with mild edema. No significant interval change in the size of the hematoma since the previous exam measures 1.8 centimeter in the largest transverse diameter. BRAIN: Again noted is encephalomalacia and gliosis at the right occipital posterior parietal lobe suggestive of old right [employer] infarction. Chronic lacunar infarction at the left basal ganglia is also again noted. Encephalomalacia and gliosis at the right frontal lobe is also noted suggestive of small right MCA territory infarction. Chronic atrophy and microvascular white matter ischemic changes are noted. VENTRICLES: Unremarkable. No hydrocephalus. CALVARIUM: Unremarkable. PARANASAL SINUSES: Mucosal thickening and air-fluid level at the left sphenoid sinus is noted. MASTOID AIR CELLS: Unremarkable as visualized. No inflammatory changes. OTHER FINDINGS: None. IMPRESSION: No significant interval change in the right cerebellar hemorrhage since the previous exam. No significant interval change in the brain parenchyma noted since the previous study.
--- NOTE | 2017-11-26 10:43 | CP.PCM.PN ---
Subjective - Date & Time of Evaluation Date of Evaluation: 11/26/17 Time of Evaluation: 15:00 - Subjective Subjective: Patient more awake, alert Objective - Vital Signs/Intake and Output Vital Signs (last 24 hours): Temp Pulse Resp BP Pulse Ox 98.2 F 86 16 146/99 H 91 L 11/26/17 08:00 11/26/17 08:00 11/26/17 08:00 11/26/17 08:00 11/26/17 08:00 Intake and Output: 11/26/17 11/26/17 06:59 18:59 Intake Total 900 150 Output Total 1300 1100 Balance -400 -950 - Medications Medications: Current Medications Amlodipine Besylate (Norvasc) 5 mg PO DAILY [facility] Last Admin: 11/26/17 09:39 Dose: 5 mg Sodium Chloride (Sodium Chloride 0.9%) 1,000 mls @ 75 mls/hr IV .[id number] [facility] Last Admin: 11/26/17 05:46 Dose: Not Given Metoprolol Tartrate (Lopressor) 50 mg PO Q12 [facility] Last Admin: 11/26/17 09:39 Dose: 50 mg Pantoprazole Sodium (Protonix Inj) 40 mg IVP DAILY [facility] Last Admin: 11/26/17 09:39 Dose: 40 mg - Labs Labs: 11/26/17 06:21 11/26/17 06:17 PT 14.7 SECONDS (9.7-12.2) H 11/24/17 10:34 INR 1.3 11/24/17 10:34 APTT 32 SECONDS (21-34) 11/24/17 10:34 - Head Exam Head Exam: ATRAUMATIC, NORMAL INSPECTION, NORMOCEPHALIC - Eye Exam Pupil Exam: PERRL - ENT Exam ENT Exam: Mucous Membranes Moist - Respiratory Exam Respiratory Exam: Clear to Ausculation Bilateral, NORMAL BREATHING PATTERN - Cardiovascular Exam Cardiovascular Exam: REGULAR RHYTHM, +S1, +S2, Murmur - GI/Abdominal Exam GI & Abdominal Exam: Normal Bowel Sounds - Extremities Exam Extremities Exam: Normal Inspection Assessment and Plan - Assessment and Plan (Free Text) Assessment: Patient admitted to ICU for ICH/cerebellar ICH: no indication for surgical intervention, mental status improved, off precedex ggt - oriented to person,time and place -HTN: continue anti-hypertensive as per cardiology -Transminitis: slow improvment -hyperbillirubinemia: continue to monitor avoid hepatotoxic drugs, US RUQ reveals no jackson sign -continue dvt.pud ppx -PT/OT activity oob to chair -PAtient remains hemodynamically stable.
--- NOTE | 2017-11-26 12:26 | CARD ---
APPROVED REPORT Date of service: 11/24/2017 EKG Measurement Heart [id number] <Conclusion> Atrial fibrillation Nonspecific ST and T wave abnormality Abnormal ECG
--- NOTE | 2017-11-27 00:18 | CP.PCM.PN ---
Subjective - Date & Time of Evaluation Date of Evaluation: 11/26/17 Time of Evaluation: 15:25 - Subjective Subjective: Patient seen and evaluated S/P Cerebral blled Denies headache and cardiac symptoms A Fib: Due to cerebellar bleed no anticoagulation for now Objective - Vital Signs/Intake and Output Vital Signs (last 24 hours): Temp Pulse Resp BP Pulse Ox 97.5 F L 87 20 156/105 H 99 11/26/17 15:00 11/26/17 15:00 11/26/17 15:00 11/26/17 15:00 11/26/17 15:00 Intake and Output: 11/26/17 11/27/17 18:59 06:59 Intake Total 1235 Output Total 1200 Balance 35 - Medications Medications: Current Medications Amlodipine Besylate (Norvasc) 5 mg PO DAILY [facility] Last Admin: 11/26/17 09:39 Dose: 5 mg Hydralazine HCl (Apresoline) 10 mg PO QID [facility] Last Admin: 11/26/17 21:53 Dose: 10 mg Sodium Chloride (Sodium Chloride 0.9%) 1,000 mls @ 75 mls/hr IV .[id number] [facility] Last Admin: 11/26/17 18:10 Dose: Not Given Metoprolol Tartrate (Lopressor) 50 mg PO Q12 [facility] Last Admin: 11/26/17 21:34 Dose: 50 mg Pantoprazole Sodium (Protonix Inj) 40 mg IVP DAILY [facility] Last Admin: 11/26/17 09:39 Dose: 40 mg - Labs Labs: 11/26/17 06:21 11/26/17 06:17 PT 14.7 SECONDS (9.7-12.2) H 11/24/17 10:34 INR 1.3 11/24/17 10:34 APTT 32 SECONDS (21-34) 11/24/17 10:34
[2017-11-27 08:04] LABS: BASO # 0.1 K/uL (0.0-0.2); BASO % 0.7 % (0.0-2.0); EOS # 0.1 K/uL (0.0-0.7); HEMOGLOBIN 15.9 g/dL (11.0-16.0); LYMPH # 1.3 K/uL (1.0-4.3); LYMPH % 19.1 % (20.0-40.0); MEAN CORPUSCULAR HEMOGLOBIN 30.1 pg (27.0-31.0); MEAN CORPUSCULAR HGB CONC 34.5 g/dL (33.0-37.0); MEAN PLATELET VOLUME 7.8 fL (7.2-11.7); MONO # 0.8 K/uL (0.0-0.8); MONO % 11.2 % (0.0-10.0); NEUT # 4.6 K/uL (1.8-7.0); NRBC % 0.1 % (0.0-2.0); RBC 5.3 Mil/uL (3.80-5.20); RED CELL DISTRIBUTION WIDTH 14.1 % (11.5-14.5); WHITE BLOOD COUNT 6.9 K/uL (4.8-10.8)
[2017-11-27 08:32] LABS: ALB/GLOB RATIO 1.1 (1.0-2.1); ALBUMIN 3.7 g/dL (3.5-5.0); ALT/SGPT 36 U/L (9-52); AST/SGOT 31 U/L (14-36); BLOOD UREA NITROGEN 10 mg/dL (7-17); CALCIUM 8.8 mg/dl (8.6-10.4); GFR AFRICAN-AMERICAN > 60; GFR NON-AFRICAN AMERICAN > 60
--- NOTE | 2017-11-27 10:21 | CP.PCM.PN ---
Subjective - Date & Time of Evaluation Date of Evaluation: 11/27/17 Time of Evaluation: 10:19 - Subjective Subjective: Ms. Valencia was seen and examined at the bedside. She is awake, alert for place, person, but confused to time ( 1917). She is able to verbalize her name and age. She denies any headache, dizziness, lightheadedness, nausea. She gets easily restless, staff attempts to keep her busy. She is able to follow simple commands.There was no untoward events overnight. Objective - Vital Signs/Intake and Output Vital Signs (last 24 hours): Temp Pulse Resp BP Pulse Ox 98.1 F 92 H 22 163/94 H 96 11/27/17 04:35 11/27/17 04:35 11/27/17 04:35 11/27/17 04:35 11/27/17 04:35 - Medications Medications: Current Medications Amlodipine Besylate (Norvasc) 5 mg PO DAILY [facility] Last Admin: 11/27/17 10:02 Dose: 5 mg Hydralazine HCl (Apresoline) 10 mg PO QID [facility] Last Admin: 11/27/17 10:02 Dose: 10 mg Metoprolol Tartrate (Lopressor) 50 mg PO Q12 [facility] Last Admin: 11/27/17 10:02 Dose: 50 mg Pantoprazole Sodium (Protonix Inj) 40 mg IVP DAILY [facility] Last Admin: 11/27/17 10:03 Dose: 40 mg - Labs Labs: 11/27/17 07:43 11/27/17 07:43 PT 14.7 SECONDS (9.7-12.2) H 11/24/17 10:34 INR 1.3 11/24/17 10:34 APTT 32 SECONDS (21-34) 11/24/17 10:34 - Constitutional Appears: No Acute Distress - Head Exam Head Exam: NORMAL INSPECTION - Neurological Exam Neurological Exam: Alert, Awake Neuro motor strength exam: Left Upper Extremity: 3, Right Upper Extremity: 4, Left Lower Extremity: 2/1, Right Lower Extremity: 3 Additional comments: neurological improved, less confused, able to participate in a conversation, sensation is intact. Assessment and Plan (1) Hemorrhagic stroke Assessment & Plan: Case discussed with DR. Balbuena, continue all current medical, physical, and occupational therapies. Pending MRI of the brain. Recommend Blood pressure control keep SBP below 160 and diastolic below 90, normothermia, echocardiogram , keep head of bed elevated at least 30 degrees, treat any electrolyte abnormalities Status: Acute
[2017-11-27] MEDS ORDERED: Potassium Chloride 20 mEq/15 ml LIQ UD PO ONE (12:19)
--- NOTE | 2017-11-27 22:04 | CP.PCM.PN ---
Subjective - Date & Time of Evaluation Date of Evaluation: 11/27/17 Time of Evaluation: 09:30 - Subjective Subjective: Patient seen and evaluated Denies chest pain and dyspnea Physical Exam - Constitutional Appears: Well, No Acute Distress - Head Exam Head Exam: ATRAUMATIC, NORMAL INSPECTION, NORMOCEPHALIC - Eye Exam Eye Exam: EOMI, Normal appearance - ENT Exam ENT Exam: Mucous Membranes Moist - Respiratory Exam Respiratory Exam: NORMAL BREATHING PATTERN - Cardiovascular Exam Cardiovascular Exam: Irregular Rhythm, +S1, +S2 - GI/Abdominal Exam GI & Abdominal Exam: Soft - Extremities Exam Extremities exam: Positive for: pedal pulses present - Neurological Exam Additional comments: Sedated - Skin Skin Exam: Dry, Normal Color, Warm Objective - Vital Signs/Intake and Output Vital Signs (last 24 hours): Temp Pulse Resp BP Pulse Ox 98.2 F 85 20 165/95 H 96 11/27/17 15:30 11/27/17 16:00 11/27/17 15:30 11/27/17 15:54 11/27/17 15:30 Intake and Output: 11/27/17 11/28/17 18:59 06:59 Intake Total 480 Output Total 700 Balance -220 - Medications Medications: Current Medications Amlodipine Besylate (Norvasc) 5 mg PO DAILY [facility] Last Admin: 11/27/17 10:02 Dose: 5 mg Hydralazine HCl (Apresoline) 10 mg PO QID [facility] Last Admin: 11/27/17 21:31 Dose: 10 mg Metoprolol Tartrate (Lopressor) 50 mg PO Q12 [facility] Last Admin: 11/27/17 21:31 Dose: 50 mg Pantoprazole Sodium (Protonix Inj) 40 mg IVP DAILY [facility] Last Admin: 11/27/17 10:03 Dose: 40 mg - Labs Labs: 11/27/17 07:43 11/27/17 07:43 PT 14.7 SECONDS (9.7-12.2) H 11/24/17 10:34 INR 1.3 11/24/17 10:34 APTT 32 SECONDS (21-34) 11/24/17 10:34 Assessment and Plan - Assessment and Plan (Free Text) Assessment: Acute Right Cerebellar Hemisphere Hemorrhage Patient recovered Oriented and comfortable Atrial Fibrillation -Currently rate controlled -Hold all anticoagulation -Troponins negative x 3 -F/U echocardiogram -Last echo 11/16/17 showed Borderline concentric LV hypertrophy, LV systolic function borderline. EF 50-55%. Transmitral doppler flow pattern is grade 2- pseudonormal filling dynamics. Mitral regurgitation is mild to moderate. There is mild-moderate pulmonary HTN. History of Hypertension -Lopressor 50mg PO Q12H -Norvasc 5mg PO daily
[2017-11-28 06:46] LABS: BASO % 0.6 % (0.0-2.0); EOS # 0.3 K/uL (0.0-0.7); EOS % 3.7 % (0.0-4.0); HEMOGLOBIN 15.7 g/dL (11.0-16.0); LYMPH # 1.4 K/uL (1.0-4.3); LYMPH % 19.9 % (20.0-40.0); MEAN CORPUSCULAR HEMOGLOBIN 30.2 pg (27.0-31.0); MEAN CORPUSCULAR HGB CONC 34.8 g/dL (33.0-37.0); MEAN PLATELET VOLUME 7.8 fL (7.2-11.7); MONO # 0.7 K/uL (0.0-0.8); MONO % 10.5 % (0.0-10.0); NEUT # 4.6 K/uL (1.8-7.0); NEUT % 65.3 % (50.0-75.0); RBC 5.18 Mil/uL (3.80-5.20); RED CELL DISTRIBUTION WIDTH 14.3 % (11.5-14.5)
--- NOTE | 2017-11-28 07:24 | CP.PCM.PN ---
Subjective - Date & Time of Evaluation Date of Evaluation: 11/28/17 Time of Evaluation: 07:24 - Subjective Subjective: Ms. Valencia was seen and examined at the bedside. She is awake, alert for place, person, but confused to time ( 2023). She is able to verbalize her name and age. She denies any headache, dizziness, lightheadedness, nausea. She is able to state how many kids and the name of her kids. She is able to follow simple commands. According to staff, she gets confused at nighttime but easily redirected.There was no untoward events overnight. Objective - Vital Signs/Intake and Output Vital Signs (last 24 hours): Temp Pulse Resp BP Pulse Ox 98.2 F 71 20 161/91 H 95 11/28/17 04:10 11/28/17 05:13 11/28/17 04:10 11/28/17 04:10 11/28/17 04:10 Intake and Output: 11/28/17 11/28/17 06:59 18:59 Output Total 700 Balance -700 - Medications Medications: Current Medications Amlodipine Besylate (Norvasc) 5 mg PO DAILY [facility] Last Admin: 11/27/17 10:02 Dose: 5 mg Hydralazine HCl (Apresoline) 10 mg PO QID [facility] Last Admin: 11/27/17 21:31 Dose: 10 mg Metoprolol Tartrate (Lopressor) 50 mg PO Q12 [facility] Last Admin: 11/27/17 21:31 Dose: 50 mg Pantoprazole Sodium (Protonix Inj) 40 mg IVP DAILY [facility] Last Admin: 11/27/17 10:03 Dose: 40 mg - Labs Labs: 11/28/17 06:37 11/27/17 07:43 PT 14.7 SECONDS (9.7-12.2) H 11/24/17 10:34 INR 1.3 11/24/17 10:34 APTT 32 SECONDS (21-34) 11/24/17 10:34 - Constitutional Appears: No Acute Distress - Head Exam Head Exam: NORMAL INSPECTION - Eye Exam Pupil Exam: PERRL - Respiratory Exam Respiratory Exam: Wheezes Additional comments: with exertion - Neurological Exam Neurological Exam: Alert, Awake Neuro motor strength exam: Left Upper Extremity: 3, Right Upper Extremity: 3, Left Lower Extremity: 2/1, Right Lower Extremity: 2/1 Additional comments: neurological unchanged from previous examination. Assessment and Plan (1) Hemorrhagic stroke Assessment & Plan: Case discussed with DR. Balbuena, continue all current medical, physical, and occupational therapies. Pending MRI of the brain. Recommend Blood pressure control keep SBP below 160 and diastolic below 90, normothermia, echocardiogram , keep head of bed elevated at least 30 degrees, treat any electrolyte abnormalities. Status: Acute
[2017-11-28 07:56] LABS: ALB/GLOB RATIO 1.1 (1.0-2.1); ALBUMIN 3.2 g/dL (3.5-5.0); ALT/SGPT 31 U/L (9-52); AST/SGOT 29 U/L (14-36); BLOOD UREA NITROGEN 11 mg/dL (7-17); CALCIUM 8.8 mg/dl (8.6-10.4); GFR AFRICAN-AMERICAN > 60; GFR NON-AFRICAN AMERICAN > 60
--- NOTE | 2017-11-28 08:48 | CP.PCM.PN ---
Subjective - Date & Time of Evaluation Date of Evaluation: 11/26/17 Time of Evaluation: 20:54 - Subjective Subjective: Still confused. Agitated. Patient is following simple commands. She is able to eat. But she is on one-to-one watch. Her vital signs otherwise stable. She is currently off antiplatelets and anticoagulation Patient is at high risk for ischemic stroke. Cerebellar hemorrhage, acute. A. fib. Continue to monitor and will follow the patient Objective - Vital Signs/Intake and Output Vital Signs (last 24 hours): Temp Pulse Resp BP Pulse Ox 98.2 F 72 20 161/91 H 95 11/28/17 04:10 11/28/17 08:37 11/28/17 04:10 11/28/17 04:10 11/28/17 04:10 Intake and Output: 11/28/17 11/28/17 06:59 18:59 Output Total 700 Balance -700 - Medications Medications: Current Medications Amlodipine Besylate (Norvasc) 5 mg PO DAILY [facility] Last Admin: 11/27/17 10:02 Dose: 5 mg Hydralazine HCl (Apresoline) 10 mg PO QID [facility] Last Admin: 11/27/17 21:31 Dose: 10 mg Metoprolol Tartrate (Lopressor) 50 mg PO Q12 [facility] Last Admin: 11/27/17 21:31 Dose: 50 mg Pantoprazole Sodium (Protonix Inj) 40 mg IVP DAILY [facility] Last Admin: 11/27/17 10:03 Dose: 40 mg Quetiapine Fumarate (Seroquel) 25 mg PO ONCE ONE Stop: 11/28/17 12:01 - Labs Labs: 11/28/17 06:37 11/28/17 06:37 PT 14.7 SECONDS (9.7-12.2) H 11/24/17 10:34 INR 1.3 11/24/17 10:34 APTT 32 SECONDS (21-34) 11/24/17 10:34
--- NOTE | 2017-11-28 08:48 | CP.PCM.PN ---
Subjective - Date & Time of Evaluation Date of Evaluation: 11/27/17 Time of Evaluation: 20:54 - Subjective Subjective: Patient been transferred to telemetry. On one-to-one watch. Patient is following simple commands. Able to eat today better. Clinical examination is unremarkable except ongoing acute cerebellar CVA. Patient is unstable, unable to stand up. Cortical blindness also noted. A. fib. Hypertension. Currently off anticoagulation, and antiplatelets, with the risk of worsening bleeding. Blood pressure monitoring Objective - Vital Signs/Intake and Output Vital Signs (last 24 hours): Temp Pulse Resp BP Pulse Ox 98.2 F 72 20 161/91 H 95 11/28/17 04:10 11/28/17 08:37 11/28/17 04:10 11/28/17 04:10 11/28/17 04:10 Intake and Output: 11/28/17 11/28/17 06:59 18:59 Output Total 700 Balance -700 - Medications Medications: Current Medications Amlodipine Besylate (Norvasc) 5 mg PO DAILY [facility] Last Admin: 11/27/17 10:02 Dose: 5 mg Hydralazine HCl (Apresoline) 10 mg PO QID [facility] Last Admin: 11/27/17 21:31 Dose: 10 mg Metoprolol Tartrate (Lopressor) 50 mg PO Q12 [facility] Last Admin: 11/27/17 21:31 Dose: 50 mg Pantoprazole Sodium (Protonix Inj) 40 mg IVP DAILY [facility] Last Admin: 11/27/17 10:03 Dose: 40 mg Quetiapine Fumarate (Seroquel) 25 mg PO ONCE ONE Stop: 11/28/17 12:01 - Labs Labs: 11/28/17 06:37 11/28/17 06:37 PT 14.7 SECONDS (9.7-12.2) H 11/24/17 10:34 INR 1.3 11/24/17 10:34 APTT 32 SECONDS (21-34) 11/24/17 10:34
--- NOTE | 2017-11-28 09:36 | CP.PCM.PN ---
<Marlyn Espinosa - Last Filed: 11/28/17 15:15> Subjective - Date & Time of Evaluation Date of Evaluation: 11/28/17 Time of Evaluation: 09:36 - Subjective Subjective: Cardiology Progress Note - Dr Watson Patient seen and examined at bedside. Per nursing no acute events overnight. Patient less confused today. Oriented to person and place. Denies any chest pain , palpitations, dyspnea. Offers no complaints at this time. Objective - Vital Signs/Intake and Output Vital Signs (last 24 hours): Temp Pulse Resp BP Pulse Ox 98.0 F 72 20 149/87 96 11/28/17 07:45 11/28/17 08:37 11/28/17 07:45 11/28/17 07:45 11/28/17 07:45 Intake and Output: 11/28/17 11/28/17 06:59 18:59 Output Total 700 Balance -700 - Medications Medications: Current Medications Amlodipine Besylate (Norvasc) 5 mg PO DAILY [facility] Last Admin: 11/27/17 10:02 Dose: 5 mg Hydralazine HCl (Apresoline) 10 mg PO QID [facility] Last Admin: 11/27/17 21:31 Dose: 10 mg Metoprolol Tartrate (Lopressor) 50 mg PO Q12 [facility] Last Admin: 11/27/17 21:31 Dose: 50 mg Pantoprazole Sodium (Protonix Inj) 40 mg IVP DAILY [facility] Last Admin: 11/27/17 10:03 Dose: 40 mg Quetiapine Fumarate (Seroquel) 25 mg PO ONCE ONE Stop: 11/28/17 12:01 - Labs Labs: 11/28/17 06:37 11/28/17 06:37 PT 14.7 SECONDS (9.7-12.2) H 11/24/17 10:34 INR 1.3 11/24/17 10:34 APTT 32 SECONDS (21-34) 11/24/17 10:34 - Constitutional Appears: Non-toxic - Head Exam Head Exam: ATRAUMATIC, NORMAL INSPECTION - Eye Exam Eye Exam: EOMI, Normal appearance - Respiratory Exam Respiratory Exam: Clear to Ausculation Bilateral, NORMAL BREATHING PATTERN - Cardiovascular Exam Cardiovascular Exam: Irregular Rhythm, +S1, +S2 - GI/Abdominal Exam GI & Abdominal Exam: Soft. absent: Tenderness - Extremities Exam Extremities Exam: absent: Calf Tenderness Additional comments: +pedal pulses - Neurological Exam Neurological Exam: Alert, Awake - Psychiatric Exam Psychiatric exam: Normal Affect, Normal Mood - Skin Skin Exam: Normal Color, Warm Assessment and Plan - Assessment and Plan (Free Text) Assessment: Acute Right Cerebellar Hemisphere Hemorrhage -Patient recovered -Oriented and comfortable -Repeat Head CT unchanged -F/U brain MRI and MRA -Neurology on consult Atrial Fibrillation -Currently rate controlled -Hold all anticoagulation -Troponins negative x 3 -Echocardiogram 11/24/17 showed LV systolic fxn normal, bi plane EF within normal range 61%, mild mitral, tricuspid and pulmonic regurgitation. Dilated IVC with poor collapse c/w elevated right atrial pressure. -Last echo 11/16/17 showed Borderline concentric LV hypertrophy, LV systolic function borderline. EF 50-55%. Transmitral doppler flow pattern is grade 2- pseudonormal filling dynamics. Mitral regurgitation is mild to moderate. There is mild-moderate pulmonary HTN. History of Hypertension -Monitor BPs -Lopressor 50mg PO Q12H -Norvasc 5mg PO daily -Hydralazine 10mg PO QID Plan to be be discussed with Dr Walter Espinosa DO PGY-2 <Lit Watson - Last Filed: 11/28/17 22:04> Objective - Vital Signs/Intake and Output Vital Signs (last 24 hours): Temp Pulse Resp BP Pulse Ox 98.5 F 83 20 145/97 H 99 11/28/17 15:00 11/28/17 15:00 11/28/17 15:00 11/28/17 15:00 11/28/17 15:00 Intake and Output: 11/28/17 11/29/17 18:59 06:59 Intake Total 400 Output Total 800 Balance -400 - Medications Medications: Current Medications Amlodipine Besylate (Norvasc) 5 mg PO DAILY [facility] Last Admin: 11/28/17 09:50 Dose: 5 mg Hydralazine HCl (Apresoline) 10 mg PO QID [facility] Last Admin: 11/28/17 21:50 Dose: 10 mg Metoprolol Tartrate (Lopressor) 50 mg PO Q12 [facility] Last Admin: 11/28/17 21:50 Dose: 50 mg Pantoprazole Sodium (Protonix Inj) 40 mg IVP DAILY [facility] Last Admin: 11/28/17 09:51 Dose: 40 mg Quetiapine Fumarate (Seroquel) 25 mg PO ONCE PRN PRN Reason: To be given prior MRI - Labs Labs: 11/28/17 06:37 11/28/17 06:37 PT 14.7 SECONDS (9.7-12.2) H 11/24/17 10:34 INR 1.3 11/24/17 10:34 APTT 32 SECONDS (21-34) 11/24/17 10:34 Assessment and Plan - Assessment and Plan (Free Text) Assessment: Patient seen and evaluated personally by me. Plan of care d/w the medical concierge and as documented
[2017-11-29 08:55] LABS: ALB/GLOB RATIO 1.2 (1.0-2.1); ALBUMIN 4.1 g/dL (3.5-5.0); ALT/SGPT 28 U/L (9-52); AST/SGOT 45 U/L (14-36); BLOOD UREA NITROGEN 11 mg/dL (7-17); CALCIUM 9.3 mg/dl (8.6-10.4); GFR AFRICAN-AMERICAN > 60; GFR NON-AFRICAN AMERICAN > 60
--- NOTE | 2017-11-29 10:11 | CP.PCM.PN ---
<Marlyn Espinosa - Last Filed: 11/29/17 14:28> Subjective - Date & Time of Evaluation Date of Evaluation: 11/29/17 Time of Evaluation: 10:10 - Subjective Subjective: Cardiology Progress Note - Dr Watson Patient seen and examined at bedside. Per nursing no acute events overnight. Patient for MRI today. Denies chest pain or dyspnea. Objective - Vital Signs/Intake and Output Vital Signs (last 24 hours): Temp Pulse Resp BP Pulse Ox 98.0 F 91 H 20 148/86 96 11/29/17 08:08 11/29/17 08:08 11/29/17 08:08 11/29/17 08:08 11/29/17 08:08 Intake and Output: 11/29/17 11/29/17 06:59 18:59 Intake Total 620 Output Total 800 Balance -180 - Medications Medications: Current Medications Amlodipine Besylate (Norvasc) 5 mg PO DAILY [facility] Last Admin: 11/29/17 09:59 Dose: 5 mg Hydralazine HCl (Apresoline) 10 mg PO QID [facility] Last Admin: 11/29/17 09:59 Dose: 10 mg Metoprolol Tartrate (Lopressor) 50 mg PO Q12 [facility] Last Admin: 11/29/17 09:59 Dose: 50 mg Pantoprazole Sodium (Protonix Inj) 40 mg IVP DAILY [facility] Last Admin: 11/29/17 10:00 Dose: 40 mg - Labs Labs: 11/28/17 06:37 11/29/17 08:00 PT 14.7 SECONDS (9.7-12.2) H 11/24/17 10:34 INR 1.3 11/24/17 10:34 APTT 32 SECONDS (21-34) 11/24/17 10:34 - Additional Findings Additional findings: - Constitutional Appears: Non-toxic - Head Exam Head Exam: ATRAUMATIC, NORMAL INSPECTION - Eye Exam Eye Exam: EOMI, Normal appearance - Respiratory Exam Respiratory Exam: Clear to Ausculation Bilateral, NORMAL BREATHING PATTERN - Cardiovascular Exam Cardiovascular Exam: Irregular Rhythm, +S1, +S2 - GI/Abdominal Exam GI & Abdominal Exam: Soft. absent: Tenderness - Extremities Exam Extremities Exam: absent: Calf Tenderness Additional comments: +pedal pulses - Neurological Exam Neurological Exam: Alert, Awake - Psychiatric Exam Psychiatric exam: Normal Affect, Normal Mood - Skin Skin Exam: Normal Color, Warm Assessment and Plan - Assessment and Plan (Free Text) Assessment: Acute Right Cerebellar Hemisphere Hemorrhage -Patient recovered -Oriented and comfortable -Repeat Head CT unchanged -Brain MRI and MRA completed, f/u official read -Neurology on consult Atrial Fibrillation -Currently rate controlled -Hold all anticoagulation, SCDs for DVT ppx -Troponins negative x 3 -Echocardiogram 11/24/17 showed LV systolic fxn normal, bi plane EF within normal range 61%, mild mitral, tricuspid and pulmonic regurgitation. Dilated IVC with poor collapse c/w elevated right atrial pressure. -Last echo 11/16/17 showed Borderline concentric LV hypertrophy, LV systolic function borderline. EF 50-55%. Transmitral doppler flow pattern is grade 2- pseudonormal filling dynamics. Mitral regurgitation is mild to moderate. There is mild-moderate pulmonary HTN. History of Hypertension -Monitor BPs -Lopressor 50mg PO Q12H -Norvasc 5mg PO daily -Hydralazine 10mg PO QID Plan to be discussed with Dr Walter Espinosa DO PGY-2 <Lit Watson - Last Filed: 11/29/17 19:01> Objective - Vital Signs/Intake and Output Vital Signs (last 24 hours): Temp Pulse Resp BP Pulse Ox 98.1 F 76 18 149/94 H 95 11/29/17 15:17 11/29/17 17:48 11/29/17 15:17 11/29/17 17:48 11/29/17 15:17 Intake and Output: 11/29/17 11/30/17 18:59 06:59 Intake Total 200 Balance 200 - Medications Medications: Current Medications Amlodipine Besylate (Norvasc) 5 mg PO DAILY [facility] Last Admin: 11/29/17 09:59 Dose: 5 mg Hydralazine HCl (Apresoline) 10 mg PO QID [facility] Last Admin: 11/29/17 17:45 Dose: 10 mg Metoprolol Tartrate (Lopressor) 50 mg PO Q12 [facility] Last Admin: 11/29/17 09:59 Dose: 50 mg Pantoprazole Sodium (Protonix Inj) 40 mg IVP DAILY [facility] Last Admin: 11/29/17 10:00 Dose: 40 mg - Labs Labs: 11/28/17 06:37 11/29/17 08:00 PT 14.7 SECONDS (9.7-12.2) H 11/24/17 10:34 INR 1.3 11/24/17 10:34 APTT 32 SECONDS (21-34) 11/24/17 10:34 Assessment and Plan - Assessment and Plan (Free Text) Assessment: Patient seen and evaluated personally by me. Plan of care d/w the resident and as documented
--- NOTE | 2017-11-29 14:25 | MRI ---
Date of service: 11/29/2017 PROCEDURE: MRI BRAIN WITHOUT CONTRAST HISTORY: cerebellar hemorrhage COMPARISON: CT of the head 11/26/2017 TECHNIQUE: Multiplanar, multisequence MR images of the brain were obtained without intravenous contrast enhancement. FINDINGS: HEMORRHAGE: As seen on CT there is a 15 mm acute hemorrhage in the right cerebellar hemisphere with a small amount of surrounding edema. The hemorrhage is adjacent to the 4th ventricle but there is no intraventricular extension or compression. DWI: There is an area of restricted diffusion in the left posterior frontal lobe consistent with an acute infarct. This is best seen on diffusion image 30 series 4 BRAIN PARENCHYMA: Chronic microvascular changes are seen in the periventricular white matter. There is an old infarct with cystic encephalomalacia in the right occipital lobe. The left posterior frontal infarct seen on diffusion imaging is also visible on FLAIR and T2 images. VENTRICLES: Unremarkable. No hydrocephalus. CRANIUM: Unremarkable. ORBITS: Grossly unremarkable. PARANASAL SINUSES/MASTOIDS: Clear VASCULAR SYSTEM: Skull base flow voids intact. OTHER FINDINGS: None. IMPRESSION: Acute infarct in the left posterior frontal lobe. Acute hemorrhage in the right cerebellar hemisphere Chronic right occipital infarct and severe chronic microvascular disease in the periventricular white matter
--- NOTE | 2017-11-29 14:33 | MRI ---
Date of service: 11/29/2017 PROCEDURE: MR angiography of the head without contrast HISTORY: cerebellar hemorrhage COMPARISON: TECHNIQUE: [id number] nonenhanced imaging was performed. The study was severely limited by motion artifact. FINDINGS: Only the large proximal branches of the internal carotids and basilar artery are visualized. No evidence of occlusion IMPRESSION: Limited study. Nonvisualization of intracranial vessels
--- NOTE | 2017-11-29 14:38 | MRI ---
Date of service: 11/29/2017 PROCEDURE: MR Angiography of the neck without contrast HISTORY: cerebellar hemorrhage COMPARISON: None available. TECHNIQUE: 3D [id number] angiography of the neck was performed. Rotating maximum intensity projection images of the cervical carotid and vertebral arteries were generated. The origins of the common carotid arteries were not visualized, which is a limitation inherent to the non-contrast time of flight technique. FINDINGS: RIGHT CAROTID ARTERIES: Tortuosity. No evidence of stenosis LEFT CAROTID ARTERIES: There is a focal high-grade stenosis at the junction of the vertical and horizontal components of the left internal carotid. This is verified on source image 65 series 4. VERTEBRAL ARTERIES: Right Vertebral Artery: Normal. Left Vertebral Artery: Normal. OTHER FINDINGS: None. IMPRESSION: There is a focal high-grade stenosis at the junction of the vertical and horizontal components of the left internal carotid.
--- NOTE | 2017-11-29 20:52 | CP.PCM.PN ---
Subjective - Date & Time of Evaluation Date of Evaluation: 11/28/17 Time of Evaluation: 20:51 - Subjective Subjective: Patient been transferred to telemetry. On one-to-one watch. Patient is following simple commands. Able to eat today better. Clinical examination is unremarkable except ongoing acute cerebellar CVA. Patient is unstable, unable to stand up. Cortical blindness also noted. A. fib. Hypertension. Currently off anticoagulation, and antiplatelets, with the risk of worsening bleeding. Blood pressure monitoring Objective - Vital Signs/Intake and Output Vital Signs (last 24 hours): Temp Pulse Resp BP Pulse Ox 98.1 F 76 18 149/94 H 95 11/29/17 15:17 11/29/17 17:48 11/29/17 15:17 11/29/17 17:48 11/29/17 15:17 Intake and Output: 11/29/17 11/30/17 18:59 06:59 Intake Total 200 Balance 200 - Medications Medications: Current Medications Amlodipine Besylate (Norvasc) 5 mg PO DAILY [facility] Last Admin: 11/29/17 09:59 Dose: 5 mg Hydralazine HCl (Apresoline) 10 mg PO QID [facility] Last Admin: 11/29/17 17:45 Dose: 10 mg Metoprolol Tartrate (Lopressor) 50 mg PO Q12 [facility] Last Admin: 11/29/17 09:59 Dose: 50 mg Pantoprazole Sodium (Protonix Inj) 40 mg IVP DAILY [facility] Last Admin: 11/29/17 10:00 Dose: 40 mg - Labs Labs: 11/28/17 06:37 11/29/17 08:00 PT 14.7 SECONDS (9.7-12.2) H 11/24/17 10:34 INR 1.3 11/24/17 10:34 APTT 32 SECONDS (21-34) 11/24/17 10:34
--- NOTE | 2017-11-29 20:52 | CP.PCM.PN ---
Subjective - Date & Time of Evaluation Date of Evaluation: 11/29/17 Time of Evaluation: 20:56 - Subjective Subjective: The patient have difficult time in moving. She is a sometimes agitated, but better than before. Poor intake noted. Low blood sugar noted this evening. Vital signs stable. I spoke to the patient's daughter. Patient will need to possibly acute subacute rehab. We will continue to monitor. Blood pressure control. Off anticoagulation and antiplatelets. High risk for ischemic CVA A. fib hypertension Objective - Vital Signs/Intake and Output Vital Signs (last 24 hours): Temp Pulse Resp BP Pulse Ox 98.1 F 76 18 149/94 H 95 11/29/17 15:17 11/29/17 17:48 11/29/17 15:17 11/29/17 17:48 11/29/17 15:17 Intake and Output: 11/29/17 11/30/17 18:59 06:59 Intake Total 200 Balance 200 - Medications Medications: Current Medications Amlodipine Besylate (Norvasc) 5 mg PO DAILY [facility] Last Admin: 11/29/17 09:59 Dose: 5 mg Hydralazine HCl (Apresoline) 10 mg PO QID [facility] Last Admin: 11/29/17 17:45 Dose: 10 mg Metoprolol Tartrate (Lopressor) 50 mg PO Q12 [facility] Last Admin: 11/29/17 09:59 Dose: 50 mg Pantoprazole Sodium (Protonix Inj) 40 mg IVP DAILY [facility] Last Admin: 11/29/17 10:00 Dose: 40 mg - Labs Labs: 11/28/17 06:37 11/29/17 08:00 PT 14.7 SECONDS (9.7-12.2) H 11/24/17 10:34 INR 1.3 11/24/17 10:34 APTT 32 SECONDS (21-34) 11/24/17 10:34
--- NOTE | 2017-11-30 07:51 | CP.PCM.PN ---
Subjective - Date & Time of Evaluation Date of Evaluation: 11/30/17 Time of Evaluation: 07:48 - Subjective Subjective: Ms. Valencia was seen and examined at the bedside. She is alert, able to verbalize place, time and person. She denies any headache, dizziness, able to follow commands and repositined herself in bed. She has episode of restlessness overnight wherein she pulled her heplock. She remains on 1:1 sitter for patient safety. MRI of the brain showed Acute infarct in the left posterior frontal lobe.Acute hemorrhage in the right cerebellar hemisphere. Chronic right occipital infarct and severe chronic microvascular disease in the periventricular white matter. MRA of the neck showed a focal high-grade stenosis at the junction of the vertical and horizontal components of the left internal carotid. Objective - Vital Signs/Intake and Output Vital Signs (last 24 hours): Temp Pulse Resp BP Pulse Ox 98.1 F 86 18 133/82 95 11/29/17 15:17 11/30/17 01:00 11/29/17 15:17 11/29/17 21:07 11/29/17 15:17 Intake and Output: 11/30/17 11/30/17 06:59 18:59 Intake Total 250 Balance 250 - Medications Medications: Current Medications Amlodipine Besylate (Norvasc) 5 mg PO DAILY [facility] Last Admin: 11/29/17 09:59 Dose: 5 mg Hydralazine HCl (Apresoline) 10 mg PO QID [facility] Last Admin: 11/29/17 21:07 Dose: 10 mg Metoprolol Tartrate (Lopressor) 50 mg PO Q12 [facility] Last Admin: 11/29/17 21:06 Dose: 50 mg Pantoprazole Sodium (Protonix Inj) 40 mg IVP DAILY [facility] Last Admin: 11/29/17 10:00 Dose: 40 mg - Labs Labs: 11/28/17 06:37 11/29/17 08:00 PT 14.7 SECONDS (9.7-12.2) H 11/24/17 10:34 INR 1.3 11/24/17 10:34 APTT 32 SECONDS (21-34) 11/24/17 10:34 - Constitutional Appears: No Acute Distress - Head Exam Head Exam: NORMAL INSPECTION - Eye Exam Pupil Exam: PERRL - Neurological Exam Neurological Exam: Alert, Awake Neuro motor strength exam: Left Upper Extremity: 4, Right Upper Extremity: 4, Left Lower Extremity: 3, Right Lower Extremity: 3 Additional comments: awake, alert, moves all extremities with lower extremities weaker than upper Assessment and Plan (1) Hemorrhagic stroke Assessment & Plan: Continue all current medical, physical, occupational therapies. Recommend to hold off any antiplatelet or anticoagulant until hemorrhage in the right cerebellar hemisphere will be resolve, blood pressure control, encourage increase PO intake to prevent hydration, keep head of bed elevated at least 30 degrees for brain perfusion, follow any orders from tiler to treat a-fib , follow up CT scan in a couple of days to monitor progress of the hemorrhage. Status: Acute
[2017-11-30 08:30] VITALS: RESP 20
[2017-11-30 08:46] LABS: BASO % 0.7 % (0.0-2.0); EOS # 0.2 K/uL (0.0-0.7); EOS % 2.9 % (0.0-4.0); HEMOGLOBIN 17.3 g/dL (11.0-16.0); LYMPH # 1.3 K/uL (1.0-4.3); LYMPH % 17.9 % (20.0-40.0); MEAN CELL VOLUME 86.8 fL (81.0-99.0); MEAN CORPUSCULAR HEMOGLOBIN 29.7 pg (27.0-31.0); MEAN CORPUSCULAR HGB CONC 34.2 g/dL (33.0-37.0); MEAN PLATELET VOLUME 8.1 fL (7.2-11.7); MONO # 0.9 K/uL (0.0-0.8); MONO % 11.9 % (0.0-10.0); NEUT % 66.6 % (50.0-75.0); NRBC % 0.3 % (0.0-2.0); RBC 5.81 Mil/uL (3.80-5.20); RED CELL DISTRIBUTION WIDTH 14.2 % (11.5-14.5); WHITE BLOOD COUNT 7.5 K/uL (4.8-10.8)
[2017-11-30 08:55] LABS: ALBUMIN 3.6 g/dL (3.5-5.0); ALT/SGPT 24 U/L (9-52); AST/SGOT 28 U/L (14-36); BLOOD UREA NITROGEN 14 mg/dL (7-17); CALCIUM 9.1 mg/dl (8.6-10.4); GFR AFRICAN-AMERICAN > 60; GFR NON-AFRICAN AMERICAN > 60
--- NOTE | 2017-11-30 10:55 | CP.PCM.PN ---
<Marlyn Espinosa - Last Filed: 11/30/17 18:30> Subjective - Date & Time of Evaluation Date of Evaluation: 11/30/17 Time of Evaluation: 10:54 - Subjective Subjective: Cardiology Progress Note - Dr Watson Patient seen and examined at bedside. Per nursing, no acute events overnight. Patient denies any chest pain or dyspnea. Objective - Vital Signs/Intake and Output Vital Signs (last 24 hours): Temp Pulse Resp BP Pulse Ox 97.4 F L 81 20 151/97 H 97 11/30/17 07:00 11/30/17 07:00 11/30/17 07:00 11/30/17 07:00 11/30/17 07:00 Intake and Output: 11/30/17 11/30/17 06:59 18:59 Intake Total 250 Balance 250 - Medications Medications: Current Medications Amlodipine Besylate (Norvasc) 5 mg PO DAILY [facility] Last Admin: 11/30/17 09:30 Dose: 5 mg Hydralazine HCl (Apresoline) 10 mg PO QID [facility] Last Admin: 11/30/17 09:30 Dose: 10 mg Metoprolol Tartrate (Lopressor) 50 mg PO Q12 [facility] Last Admin: 11/30/17 09:30 Dose: 50 mg Pantoprazole Sodium (Protonix Inj) 40 mg IVP DAILY [facility] Last Admin: 11/30/17 09:30 Dose: 40 mg - Labs Labs: 11/30/17 08:20 11/30/17 08:20 PT 14.7 SECONDS (9.7-12.2) H 11/24/17 10:34 INR 1.3 11/24/17 10:34 APTT 32 SECONDS (21-34) 11/24/17 10:34 - Additional Findings Additional findings: - Constitutional Appears: Non-toxic - Head Exam Head Exam: ATRAUMATIC, NORMAL INSPECTION - Eye Exam Eye Exam: EOMI, Normal appearance - Respiratory Exam Respiratory Exam: Clear to Ausculation Bilateral, NORMAL BREATHING PATTERN - Cardiovascular Exam Cardiovascular Exam: Irregular Rhythm, +S1, +S2 - GI/Abdominal Exam GI & Abdominal Exam: Soft. absent: Tenderness - Extremities Exam Extremities Exam: absent: Calf Tenderness Additional comments: +pedal pulses - Neurological Exam Neurological Exam: Alert, Awake - Psychiatric Exam Psychiatric exam: Normal Affect, Normal Mood - Skin Skin Exam: Normal Color, Warm Assessment and Plan - Assessment and Plan (Free Text) Assessment: Acute Right Cerebellar Hemisphere Hemorrhage -Patient recovered -Oriented and comfortable -Repeat Head CT ordered for tomorrow -Brain MRI showed acute infarct in the left posterior frontal lobe. Acute hemorrhage in the right cerebellar hemisphere. Chronic right occipital infarct and severe microvascular disease in the periventricular white matter -Neck MRA showed focal high grade stenosis at the junction of the vertical and horizontal components of the left internal carotid. -Head MRA : limited study, nonvisulaization of intracranial vessels -Neurology on consult Atrial Fibrillation -Currently rate controlled -Hold all anticoagulation, SCDs for DVT ppx -Troponins negative x 3 -Echocardiogram 11/24/17 showed LV systolic fxn normal, bi plane EF within normal range 61%, mild mitral, tricuspid and pulmonic regurgitation. Dilated IVC with poor collapse c/w elevated right atrial pressure. -Last echo 11/16/17 showed Borderline concentric LV hypertrophy, LV systolic function borderline. EF 50-55%. Transmitral doppler flow pattern is grade 2- pseudonormal filling dynamics. Mitral regurgitation is mild to moderate. There is mild-moderate pulmonary HTN. History of Hypertension -Monitor BPs -Lopressor 50mg PO Q12H -Norvasc 5mg PO daily -Hydralazine 10mg PO QID Plan discussed with Dr Walter Espinoas DO PGY-2 <Lit Watson - Last Filed: 12/01/17 22:52> Objective - Vital Signs/Intake and Output Vital Signs (last 24 hours): Temp Pulse Resp BP Pulse Ox 97.5 F L 81 20 115/80 95 12/01/17 15:00 12/01/17 15:00 12/01/17 15:00 12/01/17 15:00 12/01/17 15:00 Intake and Output: 12/01/17 12/02/17 18:59 06:59 Intake Total 240 Balance 240 - Labs Labs: 12/01/17 06:32 12/01/17 06:32 PT 14.7 SECONDS (9.7-12.2) H 11/24/17 10:34 INR 1.3 11/24/17 10:34 APTT 32 SECONDS (21-34) 11/24/17 10:34 Assessment and Plan - Assessment and Plan (Free Text) Assessment: Patient seen and evaluated personally by me Plan of care d/w the resident and as documented
--- NOTE | 2017-11-30 12:17 | CT ---
Date of service: 11/30/2017 PROCEDURE: CT HEAD WITHOUT CONTRAST. HISTORY: bleeding COMPARISON: 11/26/2017 TECHNIQUE: Axial computed tomography images were obtained through the head/brain without intravenous contrast. Radiation dose: Total exam DLP = 892.14 mGy-cm. This CT exam was performed using one or more of the following dose reduction techniques: Automated exposure control, adjustment of the mA and/or kV according to patient size, and/or use of iterative reconstruction technique. FINDINGS: HEMORRHAGE: Stable subacute hematoma right cerebellar hemisphere. This measures 1.7 cm in diameter and is unchanged in appearance compared to the prior examination. No other acute hemorrhage is identified elsewhere. There is no extra-axial or intraventricular hemorrhage seen. BRAIN: No mass effect or edema. Subacute left frontal infarct no clearly evident as band of low attenuation extending to the cortex in the high left frontal lobe corresponding to the diffusion restriction seen on MRI examination of 11/29/2017. No other acute infarct appreciated. Old right occipital infarct with encephalomalacia. Old right frontal infarct, with associated encephalomalacia. Moderate to severe patchy and confluent deep/ subcortical and periventricular white matter lucency consistent with chronic microvascular ischemic change. Old left basal ganglia and bilateral thalamic lacunar infarcts. VENTRICLES: Unremarkable. No hydrocephalus. CALVARIUM: Unremarkable. PARANASAL SINUSES: Dependent fluid or mucoperiosteal thickening in the sphenoid sinus common nonspecific. This is unchanged compared to 11/24/2017. MASTOID AIR CELLS: Unremarkable as visualized. No inflammatory changes. OTHER FINDINGS: None. IMPRESSION: Subacute left high frontal infarct. Old right frontal infarct and right occipital infarct. Stable right cerebellar subacute hematoma. Chronic white matter ischemic change. Old left basal ganglia and bilateral thalamic lacunar infarcts.
[2017-11-30] MEDS ORDERED: Potassium Chloride 20 mEq ER Tab PO ONE (13:30)
[2017-12-01 06:37] LABS: BASO % 0.6 % (0.0-2.0); EOS # 0.2 K/uL (0.0-0.7); EOS % 3.2 % (0.0-4.0); HEMOGLOBIN 16.7 g/dL (11.0-16.0); LYMPH # 1.6 K/uL (1.0-4.3); LYMPH % 20.5 % (20.0-40.0); MEAN CORPUSCULAR HGB CONC 34.5 g/dL (33.0-37.0); MEAN PLATELET VOLUME 7.9 fL (7.2-11.7); MONO % 12.5 % (0.0-10.0); NEUT # 4.8 K/uL (1.8-7.0); NEUT % 63.2 % (50.0-75.0); NRBC % 0.1 % (0.0-2.0); RBC 5.59 Mil/uL (3.80-5.20); RED CELL DISTRIBUTION WIDTH 14.2 % (11.5-14.5); WHITE BLOOD COUNT 7.7 K/uL (4.8-10.8)
--- NOTE | 2017-12-01 06:56 | CP.PCM.PN ---
Subjective - Date & Time of Evaluation Date of Evaluation: 12/01/17 Time of Evaluation: 06:56 - Subjective Subjective: Ms. Valencia was seen and examined at the bedside. She is alert, able to verbalize place, time and person. She denies any headache, dizziness, able to follow commands and repositioned herself in bed. She remains on 1:1 sitter for patient safety. Repeat CT scan of the head showed Subacute left high frontal infarct. Old right frontal infarct and right occipital infarct. Stable right cerebellar subacute hematoma. Chronic white matter ischemic change. Old left basal ganglia and bilateral thalamic lacunar infarcts. There was no untoward events overnight. Objective - Vital Signs/Intake and Output Vital Signs (last 24 hours): Temp Pulse Resp BP Pulse Ox 98.4 F 82 20 121/74 97 11/30/17 23:05 12/01/17 06:36 11/30/17 23:05 11/30/17 23:05 11/30/17 23:05 Intake and Output: 11/30/17 12/01/17 18:59 06:59 Intake Total 520 Balance 520 - Medications Medications: Current Medications Amlodipine Besylate (Norvasc) 5 mg PO DAILY [facility] Hydralazine HCl (Apresoline) 10 mg PO QID [facility] Last Admin: 11/30/17 21:29 Dose: 10 mg Metoprolol Tartrate (Lopressor) 50 mg PO Q12 [facility] Last Admin: 11/30/17 21:29 Dose: 50 mg Pantoprazole Sodium (Protonix Inj) 40 mg IVP DAILY [facility] Last Admin: 11/30/17 09:30 Dose: 40 mg - Labs Labs: 12/01/17 06:32 11/30/17 08:20 PT 14.7 SECONDS (9.7-12.2) H 11/24/17 10:34 INR 1.3 11/24/17 10:34 APTT 32 SECONDS (21-34) 11/24/17 10:34 - Constitutional Appears: No Acute Distress - Head Exam Head Exam: NORMAL INSPECTION - Eye Exam Pupil Exam: PERRL - Neurological Exam Neurological Exam: Alert, Awake Neuro motor strength exam: Left Upper Extremity: 4, Right Upper Extremity: 5, Left Lower Extremity: 3, Right Lower Extremity: 5 Additional comments: awake, alert, follows commands, sensation is intact. Assessment and Plan (1) Hemorrhagic stroke Assessment & Plan: Continue all current medical, physical, occupational therapies. Recommend to hold off any antiplatelet or anticoagulant until hemorrhage in the right cerebellar hemisphere will be resolve, blood pressure control, encourage increase PO intake to prevent hydration, keep head of bed elevated at least 30 degrees for brain perfusion, follow any orders from cement tester assistant to treat a-fib , follow up CT scan in a today to monitor progress of the hemorrhage which will determine if patient will be safe to be discharge to the assisted. Status: Acute
[2017-12-01 07:31] LABS: ALB/GLOB RATIO 1.2 (1.0-2.1); ALBUMIN 3.5 g/dL (3.5-5.0); ALT/SGPT 29 U/L (9-52); AST/SGOT 25 U/L (14-36); BLOOD UREA NITROGEN 22 mg/dL (7-17); CALCIUM 9.1 mg/dl (8.6-10.4); GFR AFRICAN-AMERICAN > 60; GFR NON-AFRICAN AMERICAN > 60
--- NOTE | 2017-12-01 09:37 | CT ---
Date of service: 12/01/2017 PROCEDURE: CT HEAD WITHOUT CONTRAST. HISTORY: RE-EVAL HEMORRHAGIC STROKE COMPARISON: 2017 TECHNIQUE: Axial computed tomography images were obtained through the head/brain without intravenous contrast. Radiation dose: Total exam DLP = 971 mGy-cm. This CT exam was performed using one or more of the following dose reduction techniques: Automated exposure control, adjustment of the mA and/or kV according to patient size, and/or use of iterative reconstruction technique. FINDINGS: HEMORRHAGE: The right cerebellar hemispheric subacute hematoma is similar in appearance approximately 1.6 cm in size on this exam. No other interval hemorrhagic of foci noted. BRAIN: As per prior report correlating with prior MRI findings the subacute high a left frontal cortical infarct is similar in appearance no hemorrhagic like density here of the cortex seen. The prior old right frontal infarct and old right occipital infarct associated encephalomalacia changes are similar in appearance The background cerebral atrophy and periventricular hypodensity is compatible with deep white matter microvascular disease is similar in appearance No interval mass effect or midline shift noted. The old left basal ganglia and bilateral thalamic lacunar infarcts are renoted. VENTRICLES: Dilated commensurate with the degree of atrophy. No interval change appreciated CALVARIUM: Unremarkable. PARANASAL SINUSES: Sphenoid sinus small air-fluid level-unchanged. MASTOID AIR CELLS: Unremarkable as visualized. No inflammatory changes. OTHER FINDINGS: None. IMPRESSION: No interval changes seen in the subacute stable appearing right cerebellar hematoma. Other subacute left frontal infarct changes similar other more chronic appearing infarct changes and deep white matter ischemic changes are as detailed above. No interval hemorrhagic infarcts no interval hematomas, edema or interval increased mass effect. Sphenoid sinusitis - unchanged.
--- NOTE | 2017-12-01 12:59 | IP.NPCORE ---
Stroke Core Measure - CQM - Stroke Antithrombotic Prescribed: Medical Contraindication Present (HEMORRHAGIC CVA) Contranindication/Reason for not providing: Other (HEMORRHAGIC CVA) If Other selected, reason for not providing: HEMORRHAGIC CVA Anticoagulation Prescribed for Atrial Flutter, Atrial Fibrillation and History of:: Medical Contraindication Present (HEMORRHAGIC CVA) Contranindication/Reason for not providing: Risk for Bleeding, Other ( HEMORRHAGIC CVA) Other Contraindication/Reason for not providing: HEMORRHAGIC CVA Statin prescribed: Medical Contraindication Present Contraindication/Reason for not providing: Other If Other selected, reason for not providing: ELEVATION IN LFTS
--- NOTE | 2017-12-01 14:56 | CP.PCM.PN ---
Subjective - Date & Time of Evaluation Date of Evaluation: 12/01/17 Time of Evaluation: 14:55 - Subjective Subjective: PT CLEARED FOR D/C TODAY TO [facility] PER DR. HAQ. PT ALSO CLEARED BY DR. TAPIA, NEURO, AFTER REVIEW OF REPEAT HEAD CT. PT TO BE PLACED UNDER THE SERVICE OF DR. Jatinder RAMON PER DR. NAT. HUMPHRIES TO ARRANGE FOR TRANSPORTATION TO [facility] THIS AFTERNOON. NO FURTHER ORDERS. Objective - Vital Signs/Intake and Output Vital Signs (last 24 hours): Temp Pulse Resp BP Pulse Ox 97.8 F 96 H 20 125/73 96 12/01/17 08:00 12/01/17 08:00 12/01/17 08:00 12/01/17 08:00 12/01/17 08:00 Intake and Output: 12/01/17 12/01/17 06:59 18:59 Intake Total 520 240 Balance 520 240 - Medications Medications: Current Medications Amlodipine Besylate (Norvasc) 5 mg PO DAILY [facility] Last Admin: 12/01/17 09:44 Dose: 5 mg Hydralazine HCl (Apresoline) 10 mg PO QID [facility] Last Admin: 12/01/17 13:02 Dose: 10 mg Metoprolol Tartrate (Lopressor) 50 mg PO Q12 [facility] Last Admin: 12/01/17 09:43 Dose: 50 mg Pantoprazole Sodium (Protonix Inj) 40 mg IVP DAILY [facility] Last Admin: 12/01/17 09:44 Dose: 40 mg - Labs Labs: 12/01/17 06:32 12/01/17 06:32 PT 14.7 SECONDS (9.7-12.2) H 11/24/17 10:34 INR 1.3 11/24/17 10:34 APTT 32 SECONDS (21-34) 11/24/17 10:34
[2017-12-01 15:22] VITALS: BP 115/80; PULSE 81; TEMP 97.5; O2SAT 95
== END 2017-12-01 17:00 | DRG 64 ==
LOC: C.ER 10:15 → C.9E 12:35 → C.9I 12:44 → C.6T 11-26 15:46
PROVIDERS: ADMIT Internal Medicine; ATTEND Internal Medicine
DX: I61.4 Nontraumatic intracerebral hemorrhage in cerebellum (principal); G93.6 Cerebral edema; G81.94 Hemiplegia, unspecified affecting left nondominant side; I10 Essential (primary) hypertension; H47.619 Cortical blindness, unspecified side of brain; I27.20 Pulmonary hypertension, unspecified; I48.91 Unspecified atrial fibrillation; I34.0 Nonrheumatic mitral (valve) insufficiency; I37.1 Nonrheumatic pulmonary valve insufficiency; F05 Delirium due to known physiological condition; D64.9 Anemia, unspecified; M81.0 Age-related osteoporosis without current pathological fracture; E78.5 Hyperlipidemia, unspecified; E78.00 Pure hypercholesterolemia, unspecified; F03.90 Unspecified dementia, unspecified severity, without behavioral disturbance, psychotic disturbance, mood disturbance, and anxiety; Z66 Do not resuscitate; Z96.651 Presence of right artificial knee joint; G93.89 Other specified disorders of brain; I69.398 Other sequelae of cerebral infarction; Z86.010 Personal history of colon polyps; Z86.73 Personal history of transient ischemic attack (TIA), and cerebral infarction without residual deficits; Z87.891 Personal history of nicotine dependence; Z79.899 Other long term (current) drug therapy

== ENCOUNTER 2017-12-04 10:48 | Emergency (ER) | payer MEDICARE, BC ==
[2017-12-04 10:48] VITALS: BMI 41.8
[2017-12-04] MEDS ORDERED: Sodium Chloride 0.9% 1,000 ML IV SCH (11:00)
--- NOTE | 2017-12-04 11:01 | C.PDOC ---
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 As per halfway, pt was normal at 09:30 this morning, eating breakfast, and was found unresponsive on the floor of the hallway at 09: 45. She was unresponsive on the field, with right facial droop. In ED, patient responds to painful stimuli only. Unable to obtain further history due to clinical condition. Code stroke activated immediately. Time Seen by Provider: 12/04/17 10:54 Chief Complaint (Nursing): Altered Mental Status History Per: Patient History/Exam Limitations: Clinical Condition Exacerbating Factor(s): Unknown Additional History Per: EMS, Prison Past Medical History Reviewed: Historical Data, Nursing Documentation, Vital Signs Vital Signs: Last Vital Signs Temp 98.9 F 12/04/17 13:54 Pulse 96 H 12/04/17 14:10 Resp 17 12/04/17 14:10 BP 152/95 H 12/04/17 14:10 Pulse Ox 98 12/04/17 16:53 - Medical History PMH: Anemia, Arthritis, Atrial Fibrillation, Cardia Arrhythmia (A FIB), Colonic Polyps, Dementia, HTN, Hypercholesterolemia, Hyperlipidemia, Osteoporosis Denies: Fractures, HIV, Chronic Kidney Disease Surgical History: Endoscopy - [facility] Procedures DRESSING TECHNIQUES TREATMENT USING ASSIST EQUIPMENT (04/22/17) EXCISION OF SIGMOID COLON, ENDO, DIAGN (11/16/16) EXERCISE TRMT MUSCULOSK LOW BACK/LE W ASSIST EQUIP (04/22/17) GAIT TRAINING/AMBULAT TREATMENT USING ASSIST EQUIPMENT (04/22/17) Family History: States: Unknown Family Hx - Social History Hx Alcohol Use: No Hx Substance Use: No - Immunization History Hx Tetanus Toxoid Vaccination: No Hx Influenza Vaccination: Yes Hx Pneumococcal Vaccination: No Review Of Systems Review Of Systems: ROS cannot be obtained secondary to pt's inabilty to answer questions. Physical Exam - Physical Exam Appears: Non-toxic Skin: Normal Color, Warm, Dry Head: Atraumatic, Normacephalic, Other (right facial droop) Eye(s): bilateral: Normal Inspection, PERRL, EOMI, Other (opens eyes to minimal pain) Nose: Normal Oral Mucosa: Moist Neck: Supple Chest: Symmetrical Cardiovascular: Rhythm Irregular (irregularly irregular) Respiratory: Normal Breath Sounds, No Accessory Muscle Use, No Rales, No Rhonchi , No Wheezing Gastrointestinal/Abdominal: Soft, No Tenderness Extremity: Capillary Refill (less than 2 seconds), No Deformity, Other (upper and lower extremity weakness R > L) Extremity: Bilateral: Atraumatic Neurological/Psych: No Normal Speech (non-verbal), No Normal Sensation (unable to assess sensation) Pain Response: Withdraws With Pain (moves all extremities in response to painful stimuli) ED Course And Treatment - Laboratory Results Result Diagrams: 12/04/17 11:06 12/04/17 11:06 ECG: Interpreted By Me, Viewed By Me ECG Rhythm: Atrial Fibrillation Interpretation Of ECG: Normal axis. Incomplete RBBB. T wave inversion in lateral leads. QTc. Rate From EC (bpm) O2 Sat by Pulse Oximetry: 98 (RA) Pulse Ox Interpretation: Normal - Other Rad CXR X-Ray: Viewed By Me, Read By Radiologist Interpretation: Impression: Elevated right hemidiaphragm. Biapical pleural thickening with upper lobe granulomatous changes. Right paratracheal airspace opacity may represent prominent vasculature. Small nodular density at the right costophrenic angle may represent confluence of shadows with ribs and vessels. Diffuse increased interstitial lung markings. Patchy increased markings at the left lung base. Enlarged ectatic aorta. Cardiomegaly. Calcification at the aortic knob. - CT Scan/US Head CT Other Rad Studies (CT/US): Read By Radiologist, Radiology Report Reviewed CT/US Interpretation: FINDINGS: HEMORRHAGE: Persistent focal rounded area of increased attenuation suggestive for acute hemorrhage seen within the right cerebellum on series 4, image 18 measuring 1.8 centimeters with some mild surrounding edema as well as mild mass-effect on the adjacent 4th ventricle. Overall this appears similar in appearance to the prior study, possibly mildly increased measuring up to 1.7 centimeters. BRAIN: Persistent large areas of encephalomalacia seen in the right frontal and occipital regions, not significantly changed since the prior study. Milder areas of encephalomalacia seen within the left frontal region. Scattered focal lucencies in the subcortical and periventricular white matter suggestive for severe chronic microvascular ischemic change. VENTRICLES: Unremarkable. No hydrocephalus. CALVARIUM: Unremarkable. PARANASAL SINUSES: Unremarkable as visualized. No significant inflammatory changes. MASTOID AIR CELLS: Unremarkable as visualized. No inflammatory changes. OTHER FINDINGS: Intracranial arterial vascular calcifications. IMPRESSION: Persistent focal rounded area of increased attenuation suggestive for acute hemorrhage seen within the right cerebellum on series 4, image 18 measuring 1.8 centimeters with some mild surrounding edema as well as mild mass-effect on the adjacent 4th ventricle. Overall this appears similar in appearance to the prior study, possibly mildly increased measuring up to 1.7 centimeters. Persistent large areas of encephalomalacia seen in the right frontal and occipital regions, not significantly changed since the prior study. Milder areas of encephalomalacia seen within the left frontal region. Scattered focal lucencies in the subcortical and periventricular white matter suggestive for severe chronic microvascular ischemic change. Left caudate head lacunar infarct. Correlation with MRI may be helpful for further evaluation if clinically indicated. These findings were discussed with at 11:25 a.m. on 12/04/2017. CTA Head/Neck Other Rad Studies (CT/US): Read By Radiologist, Radiology Report Reviewed CT/US Interpretation: FINDINGS: Some very minor calcified atherosclerotic plaque seen along the transverse portion of the aortic arch and the origin of the left subclavian artery. RIGHT CAROTID ARTERIES: Common Carotid Artery: Normal. Carotid Bifurcation: Minor partially calcified plaque changes seen at the level of the right carotid bifurcation - proximal right internal carotid artery with no evidence of occlusion, significant stenosis or dissection. In. Internal Carotid Artery:Normal. Distal internal carotid artery including the petrous cavernous and supraclinoid segments patent. External Carotid Artery ( proximal branches): Normal. LEFT CAROTID ARTERIES: Common Carotid Artery: Normal. Carotid Bifurcation: Minor calcified plaque changes seen at the level of the left carotid bifurcation and proximal left internal carotid artery with no evidence of occlusion significant stenosis or dissection. . Internal Carotid Artery:Distal internal carotid artery including the petrous cavernous and supraclinoid segments patent. External Carotid Artery (proximal branches): Normal. VERTEBRAL ARTERIES: Right Vertebral Artery: Normal. Left Vertebral Artery: Normal. OTHER FINDINGS: The visualized major branches of the [place] are patent as well. No evidence of occlusion nor significant stenosis. Distal branches. There is abrupt cut off of the left made M1 segment and distal branches consistent with thrombosis. . The right middle cerebral artery, the anterior the role of middle and posterior cerebral arteries are patent and symmetric. No evidence of large aneurysm nor vascular malformation. IMPRESSION: There is abrupt cut off of the mid aspect of the left M1 segment and distal branches consistent with thrombosis an acute infarct. Findings discussed with Dr. Mayorga at 12:15 p.m. with written down and read back verification. Critical Care Time - Critical Care Note Total Time (in mins): 30 Documented critical care: time excludes all time spent performing seperately billable procedures. Medical Decision Making Medical Decision Making: Plan: * Blood work * CXR * EKG * Head CT * CTA head/neck * IV fluids Patient seen and examined. Code stroke called due to acute onset of symptoms. Patient to CT for CT head and CTA head/neck. Case discussed with Dr. Ko, neurologist long line teamster. CT head results discussed with radiology, no change from previous CT head, when patient was recently admitted after a R cerebellar hemorrhage. CTA results discussed with radiology- acute L MCA thrombosis. Discussed these findings with Dr. Ko. Due to patient's recent cerebellar hemorrhage, she is not a candidate for tPA, however Dr. Ko will consult neuro interventionalist for possible thrombectomy. Patient re-evaluated- opens eyes to sternal rub, but still does not answer questions. Pulse ox 98% on room air. Received a call from Dr. Pinedo, neuro interventionalist at [facility]. He accepts patient for transfer to that facility. He will contact their transfer center. Received a call from the [facility] transfer center, spoke again with Dr. Pinedo and with Dr. Landaverde in the ED- patient will be an ED to ED transfer. Both physicians are aware of the transfer. Results and plan discussed with patient's daughter who has since arrived at bedside. Transfer papers completed. Dr. Ko came to see and evaluate the patient at bedside. Patient transported to outside facility via ALS; medics had concern about the patient's airway during transport given her mental status, however daughter states that patient is DNR/DNI. Disposition - Disposition Disposition: Trans to Other Acute Care Hosp Disposition Time: 14:00 Condition: CRITICAL Forms: [facility] ([place]) - Clinical Impression Clinical Impression: Acute ischemic left MCA stroke - Scribe Statement The provider has reviewed the documentation as recorded by the Scribe Mirlande Dutton All medical record entries made by the Scribe were at my direction and personally dictated by me. I have reviewed the chart and agree that the record accurately reflects my personal performance of the history, physical exam, medical decision making, and the department course for this patient. I have also personally directed, reviewed, and agree with the discharge instructions and disposition.
[2017-12-04] MEDS ORDERED: Iodixanol 320 MG/ML 200 ML BOTTLE IV ONE (11:03)
[2017-12-04 11:11] LABS: BASO # 0.1 K/uL (0.0-0.2); BASO % 0.9 % (0.0-2.0); EOS # 0.2 K/uL (0.0-0.7); HEMOGLOBIN 17.3 g/dL (11.0-16.0); LYMPH # 0.9 K/uL (1.0-4.3); MEAN CELL VOLUME 87.5 fL (81.0-99.0); MEAN CORPUSCULAR HEMOGLOBIN 30.1 pg (27.0-31.0); MEAN CORPUSCULAR HGB CONC 34.4 g/dL (33.0-37.0); MEAN PLATELET VOLUME 8.2 fL (7.2-11.7); MONO # 0.6 K/uL (0.0-0.8); MONO % 9.7 % (0.0-10.0); NEUT # 4.8 K/uL (1.8-7.0); NEUT % 72.4 % (50.0-75.0); NRBC % 0.1 % (0.0-2.0); RBC 5.75 Mil/uL (3.80-5.20); RED CELL DISTRIBUTION WIDTH 14.7 % (11.5-14.5); WHITE BLOOD COUNT 6.6 K/uL (4.8-10.8)
[2017-12-04 11:19] LABS: INR 1.2; PROTHROMBIN TIME 12.8 SECONDS (9.7-12.2)
--- NOTE | 2017-12-04 11:34 | CT ---
Date of service: 12/04/2017 PROCEDURE: CT HEAD WITHOUT CONTRAST. HISTORY: Code Stroke COMPARISON: 12/01/2017 TECHNIQUE: Axial computed tomography images were obtained through the head/brain without intravenous contrast. Radiation dose: Total exam DLP = 887 mGy-cm. This CT exam was performed using one or more of the following dose reduction techniques: Automated exposure control, adjustment of the mA and/or kV according to patient size, and/or use of iterative reconstruction technique. FINDINGS: HEMORRHAGE: Persistent focal rounded area of increased attenuation suggestive for acute hemorrhage seen within the right cerebellum on series 4, image 18 measuring 1.8 centimeters with some mild surrounding edema as well as mild mass-effect on the adjacent 4th ventricle. Overall this appears similar in appearance to the prior study, possibly mildly increased measuring up to 1.7 centimeters. BRAIN: Persistent large areas of encephalomalacia seen in the right frontal and occipital regions, not significantly changed since the prior study. Milder areas of encephalomalacia seen within the left frontal region. Scattered focal lucencies in the subcortical and periventricular white matter suggestive for severe chronic microvascular ischemic change. VENTRICLES: Unremarkable. No hydrocephalus. CALVARIUM: Unremarkable. PARANASAL SINUSES: Unremarkable as visualized. No significant inflammatory changes. MASTOID AIR CELLS: Unremarkable as visualized. No inflammatory changes. OTHER FINDINGS: Intracranial arterial vascular calcifications. IMPRESSION: Persistent focal rounded area of increased attenuation suggestive for acute hemorrhage seen within the right cerebellum on series 4, image 18 measuring 1.8 centimeters with some mild surrounding edema as well as mild mass-effect on the adjacent 4th ventricle. Overall this appears similar in appearance to the prior study, possibly mildly increased measuring up to 1.7 centimeters. Persistent large areas of encephalomalacia seen in the right frontal and occipital regions, not significantly changed since the prior study. Milder areas of encephalomalacia seen within the left frontal region. Scattered focal lucencies in the subcortical and periventricular white matter suggestive for severe chronic microvascular ischemic change. Left caudate head lacunar infarct. Correlation with MRI may be helpful for further evaluation if clinically indicated. These findings were discussed with at 11:25 a.m. on 12/04/2017.
[2017-12-04 11:40] LABS: ALB/GLOB RATIO 1.1 (1.0-2.1); ALBUMIN 3.8 g/dL (3.5-5.0); ALT/SGPT 33 U/L (9-52); AST/SGOT 37 U/L (14-36); BLOOD UREA NITROGEN 21 mg/dL (7-17); CALCIUM 9.4 mg/dl (8.6-10.4); GFR AFRICAN-AMERICAN > 60; GFR NON-AFRICAN AMERICAN 60; HDL CHOLESTEROL 29 mg/dL (30-70)
[2017-12-04 11:45] LABS: LDL CHOLESTEROL 89 mg/dL (0-129)
--- NOTE | 2017-12-04 12:27 | CT ---
Date of service: 12/04/2017 PROCEDURE: CT Angiography of the neck with contrast HISTORY: CVA COMPARISON: None. TECHNIQUE: Contiguous axial images of the neck and brain were obtained from the level of the skull- vertex to the superior mediastinum in the arteriographic phase of enhancement. Coronal and sagittal reformats or also generated. IV contrast dose: 100 cc Visipaque 320 Radiation Dose - DLP: 1066.83 mGy-cm This CT exam was performed using one or more of the following dose reduction techniques: Automated exposure control, adjustment of the mA and/or kV according to patient size, and/or use of iterative reconstruction technique. FINDINGS: Some very minor calcified atherosclerotic plaque seen along the transverse portion of the aortic arch and the origin of the left subclavian artery. RIGHT CAROTID ARTERIES: Common Carotid Artery: Normal. Carotid Bifurcation: Minor partially calcified plaque changes seen at the level of the right carotid bifurcation - proximal right internal carotid artery with no evidence of occlusion, significant stenosis or dissection. In Internal Carotid Artery:Normal. Distal internal carotid artery including the petrous cavernous and supraclinoid segments patent External Carotid Artery (proximal branches): Normal. LEFT CAROTID ARTERIES: Common Carotid Artery: Normal. Carotid Bifurcation: Minor calcified plaque changes seen at the level of the left carotid bifurcation and proximal left internal carotid artery with no evidence of occlusion significant stenosis or dissection. . Internal Carotid Artery:Distal internal carotid artery including the petrous cavernous and supraclinoid segments patent. External Carotid Artery (proximal branches): Normal. VERTEBRAL ARTERIES: Right Vertebral Artery: Normal. Left Vertebral Artery: Normal. OTHER FINDINGS: The visualized major branches of the [place] are patent as well. No evidence of occlusion nor significant stenosis. Distal branches There is abrupt cut off of the left made M1 segment and distal branches consistent with thrombosis. . The right middle cerebral artery, the anterior the role of middle and posterior cerebral arteries are patent and symmetric. No evidence of large aneurysm nor vascular malformation. IMPRESSION: There is abrupt cut off of the mid aspect of the left M1 segment and distal branches consistent with thrombosis an acute infarct. Findings discussed with Dr. Mayorga at 12:15 p.m. with written down and read back verification.
--- NOTE | 2017-12-04 13:02 | RAD ---
Chest x-ray single frontal view History: Code stroke. Comparison: 11/24/2017 Findings: Elevated right hemidiaphragm. Biapical pleural thickening with upper lobe granulomatous changes. Right paratracheal airspace opacity may represent prominent vasculature. Small nodular density at the right costophrenic angle may represent confluence of shadows with ribs and vessels. Diffuse increased interstitial lung markings. Patchy increased markings at the left lung base. Enlarged ectatic aorta. Cardiomegaly. Calcification at the aortic knob. Degenerative changes spine and shoulders. Impression: Elevated right hemidiaphragm. Biapical pleural thickening with upper lobe granulomatous changes. Right paratracheal airspace opacity may represent prominent vasculature. Small nodular density at the right costophrenic angle may represent confluence of shadows with ribs and vessels. Diffuse increased interstitial lung markings. Patchy increased markings at the left lung base. Enlarged ectatic aorta. Cardiomegaly. Calcification at the aortic knob.
[2017-12-04] MEDS ORDERED: Sodium Chloride 0.9% 1,000 ML ONE (13:14)
[2017-12-04 13:54] VITALS: TEMP 98.9
--- NOTE | 2017-12-04 14:01 | CP.PCM.CON ---
History of Present Illness - History of Present Illness History of Present Illness: 81 yr old woman with pmh of htn, afib, and prior stroke, who was recently admitted to [facility] (formerly [facility]) with a cerebellar hemorrhage, who now has a lt mca thrombus and is not a TPA candidate. As per the prison, she suddenly was found unresponsive on the floor of the hallway at 9:45 am, and was normal at 9: 30 am, so code stroke was initiated. CT scan shows a subacute collection of hemorrhage, and therefore TPA was not initiated. Neurointerventional team was called and patient is now being transferred to [place] where she will have the thrombus removed. ROS: no nausea, no vomiting, no diarrhea. PMH/PSH: as above. FH/SH:Lives in the prison. All: nkda On exam: lethargic but arouseable. Follows one step commands. EOMI. Has right conjunctival eye tearing and infection. no facial droop. Cn 2-12 normal. no verbal output. left arm is 4/5, left leg is 2/5, right arm and leg are not showing any movement, but not clear if this is effort related. no sensory findings appreciated. +3 dtr ul and ll bl. toes downgoing. No clonus. Gait not tested. Past Patient History - Tetanus Immunizations Tetanus Immunization: Unknown - Past Medical History & Family History Past Medical History?: Yes - Past Social History Smoking Status: Former Smoker - CARDIAC Hx Atrial Fibrillation: Yes Hx Cardia Arrhythmia: Yes (A FIB) Hx Hypercholesterolemia: Yes Hx Hypertension: Yes - PULMONARY Hx Respiratory Disorders: No - NEUROLOGICAL Hx Dementia: Yes - HEENT Hx HEENT Problems: Yes - RENAL Hx Chronic Kidney Disease: No - ENDOCRINE/METABOLIC Hx Endocrine Disorders: No - HEMATOLOGICAL/ONCOLOGICAL Hx Anemia: Yes Hx Human Immunodeficiency Virus (HIV): No - INTEGUMENTARY Hx Dermatological Problems: No - MUSCULOSKELETAL/RHEUMATOLOGICAL Hx Arthritis: Yes Hx Fractures: No Hx Osteoporosis: Yes - GASTROINTESTINAL Hx Gastrointestinal Disorders: Yes Other/Comment: GI bleed. - GENITOURINARY/GYNECOLOGICAL Hx Genitourinary Disorders: No - PSYCHIATRIC Hx Substance Use: No - SURGICAL HISTORY Hx Surgeries: Yes Hx Joint Replacement: Yes (right knee) - ANESTHESIA Hx Anesthesia: Yes Hx Anesthesia Reactions: No Meds Allergies/Adverse Reactions: Allergies Allergy/AdvReac Type Severity Reaction Status Date / Time apixaban [From Eliquis] Allergy Severe hemorrhage Verified 11/25/17 09:47 - Medications Medications: Current Medications Sodium Chloride (Sodium Chloride 0.9%) 1,000 mls @ 100 mls/hr IV .Q10H KARO Last Admin: 12/04/17 13:14 Dose: 100 mls/hr Results - Vital Signs Recent Vital Signs: Last Vital Signs Temp 97.7 F 12/04/17 10:48 Pulse 99 H 12/04/17 13:16 Resp 21 12/04/17 13:16 BP 146/93 H 12/04/17 13:16 Pulse Ox 98 12/04/17 13:16 - Labs Result Diagrams: 12/04/17 11:06 12/04/17 11:06 Labs: Laboratory Results - last 24 hr 12/04/17 12/04/17 12/04/17 11:06 11:06 11:06 WBC 6.6 RBC 5.75 H Hgb 17.3 H Hct 50.3 H MCV 87.5 MCH 30.1 MCHC 34.4 RDW 14.7 H Plt Count 153 MPV 8.2 Neut % (Auto) 72.4 Lymph % (Auto) 14.0 L Maury % (Auto) 9.7 Eos % (Auto) 3.0 Baso % (Auto) 0.9 Neut # (Auto) 4.8 Lymph # (Auto) 0.9 L Maury # (Auto) 0.6 Eos # (Auto) 0.2 Baso # (Auto) 0.1 PT 12.8 H INR 1.2 APTT 25 Sodium 141 Potassium 4.1 Chloride 99 Carbon Dioxide 35 H Anion Gap 11 BUN 21 H Creatinine 0.9 Est GFR ( Amer) > 60 Est GFR (Non-Af Amer) 60 Random Glucose 115 H Hemoglobin A1c Calcium 9.4 Total Bilirubin 3.5 H AST 37 H D ALT 33 Alkaline Phosphatase 121 Troponin I 0.0430 Total Protein 7.3 Albumin 3.8 Globulin 3.5 Albumin/Globulin Ratio 1.1 Triglycerides 92 D Cholesterol 141 LDL Cholesterol Direct 89 HDL Cholesterol 29 L Blood Type Antibody Screen 12/04/17 12/04/17 11:09 11:09 WBC RBC Hgb Hct MCV MCH MCHC RDW Plt Count MPV Neut % (Auto) Lymph % (Auto) Maury % (Auto) Eos % (Auto) Baso % (Auto) Neut # (Auto) Lymph # (Auto) Maury # (Auto) Eos # (Auto) Baso # (Auto) PT INR APTT Sodium Potassium Chloride Carbon Dioxide Anion Gap BUN Creatinine Est GFR ( Amer) Est GFR (Non-Af Amer) Random Glucose Hemoglobin A1c 5.5 Calcium Total Bilirubin AST ALT Alkaline Phosphatase Troponin I Total Protein Albumin Globulin Albumin/Globulin Ratio Triglycerides Cholesterol LDL Cholesterol Direct HDL Cholesterol Blood Type AB POSITIVE Antibody Screen Negative - Imaging and Cardiology CT scan - head Status: Image reviewed by me, Report reviewed by me (Ct head: shows right cerebellar lobar hemorrhage, and right frontal and occipital region encephalomalacia. ) Assessment & Plan - Assessment and Plan (Free Text) Assessment: CTA head: shows M1 segment thrombus A/P: 81 yr old woman with new left mca stroke, not TPA candidate but who will have thrombectomy performed by and neurointerventional team. They have been contacted and are preparing to perform the surgery in [place]. Plan: 1. Transfer to [place] for thrombectomy. Our team will follow Thank you Dr. banks
[2017-12-04 14:10] VITALS: BP 152/95; PULSE 96; RESP 17
[2017-12-04 16:53] VITALS: O2SAT 98
--- NOTE | 2017-12-05 23:45 | CARD ---
APPROVED REPORT Date of service: 12/04/2017 EKG Measurement Heart [id number] <Conclusion> Atrial fibrillation Incomplete right bundle branch block ST & T wave abnormality, consider inferolateral ischemia Abnormal ECG
== END 2017-12-04 14:32 | disposition short-term general hospital (02) ==
LOC: C.ER 10:48
DX: I63.9 Cerebral infarction, unspecified (principal); I10 Essential (primary) hypertension; I48.91 Unspecified atrial fibrillation; F03.90 Unspecified dementia, unspecified severity, without behavioral disturbance, psychotic disturbance, mood disturbance, and anxiety; D64.9 Anemia, unspecified; E78.00 Pure hypercholesterolemia, unspecified; Z86.73 Personal history of transient ischemic attack (TIA), and cerebral infarction without residual deficits; Z87.891 Personal history of nicotine dependence
CPT/HCPCS: 70450; 70496; 70498; 71045; 80053; 80061; 82948; 83036; 84484; 85025; 85610; 85730; 86850; 86900; 93005; 99285; J7030; Q9966